=== PATIENT | female | born 1945 | race Caucasian/White ===

== ENCOUNTER 2016-08-19 14:30 | Outpatient (RCR) | payer SELFPAY | END 2016-08-28 | LOC: M CR 14:30 | PROVIDERS: ATTEND Internal Medicine | DX: Z71.89 Other specified counseling (principal); I50.9 Heart failure, unspecified ==

== ENCOUNTER 2016-10-21 15:35 | Outpatient (RCR) | payer SELFPAY | END 2016-10-28 | LOC: M CR 15:35 | PROVIDERS: ATTEND Internal Medicine | DX: Z51.89 Encounter for other specified aftercare (principal); I50.9 Heart failure, unspecified ==

== ENCOUNTER → 2016-10-30 | Outpatient (REF) | payer MEDICARE, SELFPAY ==
[2016-10-30 16:11] LABS: BASO % 0.5 % (0.0-1.0); EOS # 0.1 K/mm3 (0.0-0.50); EOS % 1.9 % (0.0-3.0); LARGE UNSTAINED CELL # 0.1 K/mm3 (0.0-0.4); LARGE UNSTAINED CELL % 1.6 % (0.0-4.0); LYMPH # 2.2 K/mm3 (1.5-4.5); LYMPH % 30.4 % (24.0-44.0); MEAN CORPUSCULAR HGB CONC 34.5 g/dl (32.0-36.5); MEAN CORPUSCULAR VOLUME 92.8 fl (80.0-96.0); MONO # 0.4 K/mm3 (0.0-0.8); MONO % 5.3 % (0.0-5.0); NEUTROPHILS # 4.1 K/mm3 (1.8-7.7); NEUTROPHILS % 60.3 % (36.0-66.0); PLATELET COUNT, AUTOMATED 225 k/mm3 (150-450); RED CELL DISTRIBUTION WIDTH 12.7 % (11.5-14.5); WHITE BLOOD COUNT 6.9 K/mm3 (4.0-10.0)
== END ==
LOC: M LAB REF 15:56
PROVIDERS: ATTEND Internal Medicine Gastroenterology
DX: K50.10 Crohn's disease of large intestine without complications (principal); Z86.010 Personal history of colon polyps

== ENCOUNTER 2016-12-11 14:41 | Outpatient (RCR) | payer SELFPAY | END 2016-12-28 | LOC: M CR 14:41 | PROVIDERS: ATTEND Internal Medicine | DX: Z51.89 Encounter for other specified aftercare (principal); M85.859 Other specified disorders of bone density and structure, unspecified thigh ==

== ENCOUNTER → 2017-01-05 | Outpatient (CLI) | payer MEDICARE, OTHER ==
--- NOTE | 2017-01-05 09:57 | REPMRS ---
Patient History The patient states she had a clinical breast exam in 12/2016. Patient is postmenopausal. Family history of breast cancer in maternal aunt at age 50 or over and breast cancer in maternal grandmother at age 50 or over. Took hormonal contraceptives for 1 year. Took estrogen for 3 years. Taking unspecified hormones for 6 years. Digital Woman Screen Mammo: January 05, 2017 - Exam #: [id number] Bilateral CC and MLO view(s) were taken. Technologist: Ivette Su, Technologist Prior study comparison: November 27, 2015, digital woman screen mammo performed at [facility]. September 24, 2014, digital woman screen mammo performed at [facility]. FINDINGS: The breast tissue is heterogeneously dense. This may lower the sensitivity of mammography. There has been no change in the appearance of the mammogram from the prior studies. There is a moderate amount of residual fibroglandular tissue which is fairly symmetric. There is no interval development of dominant mass, areas of architectural distortion, or clustered microcalcification typical of malignancy. ASSESSMENT: BI-RADS/ACR category 1 mammogram. Negative. Recommendation Routine screening mammogram in 1 year (for women over age 40). This mammogram was interpreted with the aid of an FDA-approved computer-aided dectection system. Electronically Signed By: Mendel Bennett MD 01/05/17 0956
--- NOTE | 2017-01-11 10:04 | DEXA ---
AP SPINE L1 - L4 1.110 -0.7 1.1 LT FEMUR TOTAL 0.845 -1.3 0.4 RT FEMUR TOTAL 0.867 -1.1 0.5 TOTAL BODY TOTAL OTHER DUAL FEMUR FRAX* ASSESSMENT Risk factors: Not performed. 10 year probability of fracture Major osteoporotic fracture % Hip fracture % COMMENTS: Normal bone densitometry of the spine. There is low bone density of the hips. The decreased density of the spine does not represent a significant change. The decreased density of the left hip does represent a significant change. The decreased density of the right hip does represent a significant change. The density of the spine has increased 8.3% since the initial exam on 2004. The spine density has decreased 1.4% since the most recent exam on 08/23/2012. The density of the left hip has decreased 7.8% since the initial exam on 2004. The density of the left hip has decreased 4.9% since the most recent exam on . The density of the right hip has decreased 6.8% since the initial exam on 2004. The density of the right hip has decreased 6.5% since the most recent exam on . FOLLOW-UP: Recommendation for the next bone density exam: 2 years. ALIVIA
== END ==
LOC: M WHC 08:41
PROVIDERS: ATTEND Internal Medicine
DX: Z01.419 Encounter for gynecological examination (general) (routine) without abnormal findings (principal); Z12.31 Encounter for screening mammogram for malignant neoplasm of breast; M81.0 Age-related osteoporosis without current pathological fracture; Z78.0 Asymptomatic menopausal state; Z92.23 Personal history of estrogen therapy; Z80.3 Family history of malignant neoplasm of breast
CPT/HCPCS: 77080; G0101; G0202

== ENCOUNTER 2017-02-10 14:00 | Outpatient (RCR) | payer SELFPAY | END 2017-02-27 | LOC: M CR 14:00 | PROVIDERS: ATTEND Internal Medicine | DX: Z51.89 Encounter for other specified aftercare (principal); I50.9 Heart failure, unspecified ==

== ENCOUNTER 2017-04-28 12:00 | Outpatient (RCR) | payer SELFPAY | END 2017-04-29 | LOC: M CR 12:00 | PROVIDERS: ATTEND Internal Medicine | DX: Z51.89 Encounter for other specified aftercare (principal); I50.9 Heart failure, unspecified ==

== ENCOUNTER 2017-06-28 15:38 | Outpatient (RCR) | payer SELFPAY | END 2017-06-30 | LOC: M CR 15:38 | DX: Z71.82 Exercise counseling (principal) ==

== ENCOUNTER → 2017-10-07 | Outpatient (CLI) | payer MEDICARE, OTHER ==
[2017-10-07 12:29] LABS: BASO % 0.2 % (0.0-1.0); EOS # 0.1 10^3/uL (0.0-0.50); HEMATOCRIT 35.7 % (36.0-47.0); HEMOGLOBIN 12.1 g/dl (12.0-15.5); IMMATURE GRANULOCYTE % 0.3 % (0-3.0); LYMPH # 1.9 10^3/uL (1.5-4.5); LYMPH % 17.9 % (24.0-44.0); MEAN CORPUSCULAR HEMOGLOBIN 31.6 pg (27.0-33.0); MEAN CORPUSCULAR HGB CONC 33.9 g/dl (32.0-36.5); MEAN CORPUSCULAR VOLUME 93.2 fl (80.0-96.0); MONO # 0.6 10^3/uL (0.0-0.8); NEUTROPHILS # 7.8 10^3/uL (1.8-7.7); NEUTROPHILS % 74.6 % (36.0-66.0); PLATELET COUNT, AUTOMATED 180 10^3/uL (150-450); RED BLOOD COUNT 3.83 10^6/uL (4.00-5.40); RED CELL DISTRIBUTION WIDTH 12.8 % (11.5-14.5); WHITE BLOOD COUNT 10.4 10^3/uL (4.0-10.0)
[2017-10-07 12:58] LABS: TOTAL 25(OH) VITAMIN D 39.2 NG/ML (30.0-100.0)
[2017-10-07 13:00] LABS: ALBUMIN 3.8 GM/DL (3.2-5.2); ALBUMIN/GLOBULIN RATIO 1.23 (1.00-1.93); ALKALINE PHOSPHATASE 57 U/L (45-117); ALT/SGPT 20 U/L (12-78); AST/SGOT 18 U/L (7-37); BILIRUBIN,DIRECT 0.1 MG/DL (0.0-0.2); BILIRUBIN,TOTAL 0.6 MG/DL (0.2-1.0); C REACTIVE PROTEIN QUANTITATIV < 0.30 MG/DL (0.00-0.30); TOTAL PROTEIN 6.9 GM/DL (6.4-8.2)
== END ==
LOC: M LAB 11:52
DX: K50.10 Crohn's disease of large intestine without complications (principal); Z86.010 Personal history of colon polyps; K21.9 Gastro-esophageal reflux disease without esophagitis
CPT/HCPCS: 80076

== ENCOUNTER → 2018-01-06 | Outpatient (CLI) | payer MEDICARE, OTHER | LOC: M WHC 08:37 | DX: Z01.419 Encounter for gynecological examination (general) (routine) without abnormal findings (principal); Z12.31 Encounter for screening mammogram for malignant neoplasm of breast (principal); Z78.0 Asymptomatic menopausal state; Z92.0 Personal history of contraception; Z92.23 Personal history of estrogen therapy; Z92.29 Personal history of other drug therapy | CPT/HCPCS: 77067 ==

== ENCOUNTER 2018-01-14 16:12 | Outpatient (RCR) | payer SELFPAY | END 2018-01-28 | LOC: M CR 16:12 | DX: I10 Essential (primary) hypertension (principal) ==

== ENCOUNTER 2018-04-18 15:00 | Outpatient (RCR) | payer SELFPAY | END 2018-04-29 | LOC: M CR 15:00 | DX: I50.9 Heart failure, unspecified (principal) ==

== ENCOUNTER 2018-06-23 08:49 | Day surgery (SDC) | payer MEDICARE, OTHER ==
[~2018-06-23] VITALS: Ht 160 cm; Wt 83.5 kg
[~2018-06-23 08:49] MED LIST: BALANCED SALT IRRIGATION SOLUTION 500ML BAG (FOR OR EYE MACHINE) As Ordered ONE; BIOT1TAB PO; BISOPROLOL-HCTZ PO; CALC1TAB26 PO; FISH7.5C PO; LIDOCAINE 0.75%/EPINEPHRINE 0.025% IN BSS 1ML SYR INTRACAMERAL (OR ONLY) As Ordered ONE; MESA1.2T PO; MIDAZOLAM INJ 2 MG/2 ML VIAL (J2250) As Ordered ONE; MULTCAP PO; OFLOXACIN 0.3 % (OCUFLOX) OPTH SOL 5ML OS ONE; OMEP20CA3 PO; PHENYLEPHRINE 2.5% OPHTH SOL 2ML OS ONE; POVIDONE-IODINE 5% OPHTH PREP SOL 30ML As Ordered ONE; PROPARACAINE 0.5% OPHTH SOL 15ML OS ONE; SIMV20TA2 PO; TROPICAMIDE 1% OPHTH SOLN 2ML OS ONE; fentaNYL 100 MCG/2 ML INJECTION (J3010) As Ordered ONE
[2018-06-23 12:15] VITALS: BP 107/54
--- NOTE | 2018-06-23 16:20 | RO ---
DATE OF PROCEDURE: 06/23/2018 PREOPERATIVE DIAGNOSIS: 1. Visually significant nuclear sclerotic cataract left eye. POSTOPERATIVE DIAGNOSIS: 1. Visually significant nuclear sclerotic cataract left eye. PROCEDURE: 1. Cataract extraction with use of phacoemulsification and placement of intraocular lens, AU00T0, 21.5 D, left eye. SURGEON: Sukumar Winters DO SUPERVISOR MALT HOUSE: None. ANESTHESIA: Local with monitored anesthesia care (MAC). COMPLICATIONS: None. POSTOPERATIVE CONDITION: Stable. INDICATIONS FOR SURGERY: 1. Blurred vision affecting patients activities of daily living. DESCRIPTION OF PROCEDURE: The patient was seen in the preoperative area and properly identified. The correct operative eye was identified and marked. The patient received topical anesthetic, antibiotics, and topical dilating drops. The patient was then transferred to the operating room. The correct side was re-identified, and a time-out was performed. The eye was prepped and draped in a sterile fashion. The eyelids were isolated with Tegaderm tape, and the lids were held open with an adjustable speculum. A 1.0 mm paracentesis incision was made. Intraocular preservative-free Shugarcaine was then injected into the anterior chamber. Viscoelastic was then injected into the anterior chamber through the paracentesis. Using a 2.4 mm sharp-tipped keratome, the anterior chamber was entered via a temporal clear cornea incision. A continuous curvilinear capsulorrhexis was created with Utrata forceps. Hydrodissection was performed with balanced salt solution (BSS) on a blunt cannula until the nucleus was able to rotate freely. The crystalline lens was phacoemulsified and aspirated. Irrigation/aspiration was used to remove the cortical material. Cohesive viscoelastic was placed into the capsular bag to deepen it. The implant was placed into the capsular bag and allowed to unfold. Placement was confirmed by visualizing the anterior capsulorrhexis. Irrigation/aspiration was used to remove the viscoelastic. The clear corneal incision was hydrated with BSS on a blunt cannula. The lens was well positioned. The incisions were then tested for leaks and found to be negative. The eye was then palpated for appropriate pressure and adjusted accordingly with BSS. The eyelid speculum was then carefully removed. A shield was placed over the eye. The patient tolerated the procedure well and was discharged to the recovery unit in a stable condition. ALIVIA
--- NOTE | 2018-07-01 15:30 | RO ---
DATE OF PROCEDURE: 06/23/2018 PREOPERATIVE DIAGNOSIS: 1. Visually significant nuclear sclerotic cataract left eye. POSTOPERATIVE DIAGNOSIS: 1. Visually significant nuclear sclerotic cataract left eye. PROCEDURE: 1. Cataract extraction with use of phacoemulsification and placement of intraocular lens, AU00T0 21.5 D, left eye. SURGEON: Sukumar Winters DO MANAGER INSPECTION: None. ANESTHESIA: Local with monitored anesthesia care (MAC). COMPLICATIONS: None. POSTOPERATIVE CONDITION: Stable. INDICATIONS FOR SURGERY: 1. Blurred vision affecting patients activities of daily living. DESCRIPTION OF PROCEDURE: The patient was seen in the preoperative area and properly identified. The correct operative eye was identified and marked. The patient received topical anesthetic, antibiotics, and topical dilating drops. The patient was then transferred to the operating room. The correct side was re-identified, and a time-out was performed. The eye was prepped and draped in a sterile fashion. The eyelids were isolated with Tegaderm tape, and the lids were held open with an adjustable speculum. A 1.0 mm paracentesis incision was made. Intraocular preservative-free Shugarcaine was then injected into the anterior chamber. Viscoelastic was then injected into the anterior chamber through the paracentesis. Using a 2.4 mm sharp-tipped keratome, the anterior chamber was entered via a temporal clear cornea incision. A continuous curvilinear capsulorrhexis was created with Utrata forceps. Hydrodissection was performed with balanced salt solution (BSS) on a blunt cannula until the nucleus was able to rotate freely. The crystalline lens was phacoemulsified and aspirated. Irrigation/aspiration was used to remove the cortical material. Cohesive viscoelastic was placed into the capsular bag to deepen it. The implant was placed into the capsular bag and allowed to unfold. Placement was confirmed by visualizing the anterior capsulorrhexis. Irrigation/aspiration was used to remove the viscoelastic. The clear corneal incision was hydrated with BSS on a blunt cannula. The lens was well positioned. The incisions were then tested for leaks and found to be negative. The eye was then palpated for appropriate pressure and adjusted accordingly with BSS. The eyelid speculum was then carefully removed. A shield was placed over the eye. The patient tolerated the procedure well and was discharged to the recovery unit in a stable condition. ALIVIA
== END 2018-06-23 12:25 | disposition home or self-care (01) ==
LOC: M SDC 08:49
PROVIDERS: ATTEND Ophthalmology
DX: H25.12 Age-related nuclear cataract, left eye (principal); I10 Essential (primary) hypertension; K50.90 Crohn's disease, unspecified, without complications; Z79.899 Other long term (current) drug therapy; K21.9 Gastro-esophageal reflux disease without esophagitis
CPT/HCPCS: 66984; J2250; J3010; V2632

== ENCOUNTER 2018-06-30 06:13 | Day surgery (SDC) | payer MEDICARE, OTHER ==
[~2018-06-30] VITALS: Ht 157.5 cm; Wt 84.1 kg
[~2018-06-30 06:13] MED LIST changes: +ACETAMINOPHEN 325 MG TAB PO PRN; -BALANCED SALT IRRIGATION SOLUTION 500ML BAG (FOR OR EYE MACHINE) As Ordered ONE; -LIDOCAINE 0.75%/EPINEPHRINE 0.025% IN BSS 1ML SYR INTRACAMERAL (OR ONLY) As Ordered ONE; -MIDAZOLAM INJ 2 MG/2 ML VIAL (J2250) As Ordered ONE; -OFLOXACIN 0.3 % (OCUFLOX) OPTH SOL 5ML OS ONE; -PHENYLEPHRINE 2.5% OPHTH SOL 2ML OS ONE; -POVIDONE-IODINE 5% OPHTH PREP SOL 30ML As Ordered ONE; -PROPARACAINE 0.5% OPHTH SOL 15ML OS ONE; -TROPICAMIDE 1% OPHTH SOLN 2ML OS ONE; -fentaNYL 100 MCG/2 ML INJECTION (J3010) As Ordered ONE
[2018-06-30] MEDS ORDERED: BALANCED SALT IRRIGATION SOLUTION 500ML BAG (FOR OR EYE MACHINE) As Ordered ONE (06:34)
[2018-06-30] MEDS ORDERED: POVIDONE-IODINE 5% OPHTH PREP SOL 30ML As Ordered ONE (06:34)
[2018-06-30] MEDS ORDERED: LIDOCAINE 0.75%/EPINEPHRINE 0.025% IN BSS 1ML SYR INTRACAMERAL (OR ONLY) As Ordered ONE (06:35)
[2018-06-30] MEDS ORDERED: DUOVISC (0.50ML VISCOAT/0.55ML PROVISC) OPHTH KIT As Ordered ONE (06:35)
[2018-06-30] MEDS ORDERED: TROPICAMIDE 1% OPHTH SOLN 2ML OD ONE (07:00)
[2018-06-30] MEDS ORDERED: OFLOXACIN 0.3 % (OCUFLOX) OPTH SOL 5ML OD ONE (07:00)
[2018-06-30] MEDS ORDERED: PHENYLEPHRINE 2.5% OPHTH SOL 2ML OD ONE (07:00)
[2018-06-30] MEDS ORDERED: PROPARACAINE 0.5% OPHTH SOL 15ML OD ONE (07:00)
[2018-06-30] MEDS ORDERED: MIDAZOLAM INJ 2 MG/2 ML VIAL (J2250) As Ordered ONE (07:12)
[2018-06-30] MEDS ORDERED: fentaNYL 100 MCG/2 ML INJECTION (J3010) As Ordered ONE (07:13)
[2018-06-30 08:00] VITALS: BP 123/59
[2018-06-30] MEDS ORDERED: TRIMETHOBENZAMIDE 300 MG CAP PO PRN (08:15)
--- NOTE | 2018-07-20 00:24 | RO ---
DATE OF PROCEDURE: 06/30/2018 PREOPERATIVE DIAGNOSIS: 1. Visually significant nuclear sclerotic cataract right eye. POSTOPERATIVE DIAGNOSIS: 1. Visually significant nuclear sclerotic cataract right eye. PROCEDURE: 1. Cataract extraction with use of phacoemulsification and placement of intraocular lens, AU00T0, 21.5 D, right eye. SURGEON: Sukumar Winters DO SALES AND MARKETING DIRECTOR: None. ANESTHESIA: Local with monitored anesthesia care (MAC). COMPLICATIONS: None. POSTOPERATIVE CONDITION: Stable. INDICATIONS FOR SURGERY: 1. Blurred vision affecting patients activities of daily living. DESCRIPTION OF PROCEDURE: The patient was seen in the preoperative area and properly identified. The correct operative eye was identified and marked. The patient received topical anesthetic, antibiotics, and topical dilating drops. The patient was then transferred to the operating room. The correct side was re-identified, and a time-out was performed. The eye was prepped and draped in a sterile fashion. The eyelids were isolated with Tegaderm tape, and the lids were held open with an adjustable speculum. A 1.0 mm paracentesis incision was made. Intraocular preservative-free Shugarcaine was then injected into the anterior chamber. Viscoelastic was then injected into the anterior chamber through the paracentesis. Using a 2.4 mm sharp-tipped keratome, the anterior chamber was entered via a temporal clear cornea incision. A continuous curvilinear capsulorrhexis was created with Utrata forceps. Hydrodissection was performed with balanced salt solution (BSS) on a blunt cannula until the nucleus was able to rotate freely. The crystalline lens was phacoemulsified and aspirated. Irrigation/aspiration was used to remove the cortical material. Cohesive viscoelastic was placed into the capsular bag to deepen it. The implant was placed into the capsular bag and allowed to unfold. Placement was confirmed by visualizing the anterior capsulorrhexis. Irrigation/aspiration was used to remove the viscoelastic. The clear corneal incision was hydrated with BSS on a blunt cannula. The lens was well positioned. The incisions were then tested for leaks and found to be negative. The eye was then palpated for appropriate pressure and adjusted accordingly with BSS. The eyelid speculum was then carefully removed. A shield was placed over the eye. The patient tolerated the procedure well and was discharged to the recovery unit in a stable condition.
== END 2018-06-30 10:42 | disposition home or self-care (01) ==
LOC: M SDC 06:13
PROVIDERS: ATTEND Ophthalmology
DX: H25.11 Age-related nuclear cataract, right eye (principal); I10 Essential (primary) hypertension; E78.5 Hyperlipidemia, unspecified; K50.90 Crohn's disease, unspecified, without complications; K21.9 Gastro-esophageal reflux disease without esophagitis; M12.9 Arthropathy, unspecified; Z88.0 Allergy status to penicillin; Z88.8 Allergy status to other drugs, medicaments and biological substances; Z79.899 Other long term (current) drug therapy
CPT/HCPCS: 66984; J2250; J3010; V2632

== ENCOUNTER 2018-07-18 15:34 | Outpatient (RCR) | payer SELFPAY ==
[~2018-07-18 15:34] MED LIST changes: -ACETAMINOPHEN 325 MG TAB PO PRN
== END 2018-07-28 ==
LOC: M CR 15:34
PROVIDERS: ATTEND Internal Medicine
DX: Z71.82 Exercise counseling (principal); I50.9 Heart failure, unspecified

== ENCOUNTER 2018-09-26 14:59 | Outpatient (RCR) | payer SELFPAY | END 2018-09-27 | LOC: M CR 14:59 | PROVIDERS: ATTEND Internal Medicine | DX: Z91.89 Other specified personal risk factors, not elsewhere classified (principal) ==

== ENCOUNTER → 2018-10-14 | Outpatient (CLI) | payer MEDICARE, OTHER ==
[2018-10-14 16:12] LABS: BASO % 0.4 % (0.0-1.0); EOS # 0.1 10^3/uL (0.0-0.50); EOS % 1.4 % (0.0-3.0); HEMATOCRIT 37.5 % (36.0-47.0); HEMOGLOBIN 12.4 g/dl (12.0-15.5); LYMPH # 1.9 10^3/uL (1.5-4.5); MEAN CORPUSCULAR HEMOGLOBIN 31.8 pg (27.0-33.0); MEAN CORPUSCULAR HGB CONC 33.1 g/dl (32.0-36.5); MEAN CORPUSCULAR VOLUME 96.2 fl (80.0-96.0); MONO # 0.5 10^3/uL (0.0-0.8); MONO % 6.3 % (0.0-5.0); NEUTROPHILS # 5.1 10^3/uL (1.8-7.7); NEUTROPHILS % 66.6 % (36.0-66.0); PLATELET COUNT, AUTOMATED 192 10^3/uL (150-450); WHITE BLOOD COUNT 7.7 10^3/uL (4.0-10.0)
[2018-10-14 16:45] LABS: ALBUMIN 3.5 GM/DL (3.2-5.2); ALT/SGPT 28 U/L (12-78); BILIRUBIN,DIRECT < 0.1 MG/DL (0.0-0.2); BILIRUBIN,TOTAL 0.3 MG/DL (0.2-1.0); C REACTIVE PROTEIN QUANTITATIV < 0.30 MG/DL (0.00-0.30); TOTAL PROTEIN 6.9 GM/DL (6.4-8.2)
[2018-10-14 16:53] LABS: TOTAL 25(OH) VITAMIN D 43.1 NG/ML (30.0-100.0)
== END ==
LOC: M LAB 15:13
PROVIDERS: ATTEND Internal Medicine Gastroenterology
DX: K50.10 Crohn's disease of large intestine without complications (principal)

== ENCOUNTER → 2019-01-09 | Outpatient (CLI) | payer MEDICARE, OTHER ==
[~2019-01-09] MED LIST changes: -OMEP20CA3 PO; +OMEP20CA4 PO
--- NOTE | 2019-01-09 11:11 | REPMRS ---
Patient History The patient states she had a clinical breast exam in 12/2018. Patient is postmenopausal. Family history of breast cancer at age 50 or over in maternal grandmother, breast cancer at age 50 or over in maternal aunt. Took hormonal contraceptives for 1 year. Took estrogen for 3 years. Took unspecified hormones for 7 years. Digital Woman Screen Mammo: January 09, 2019 - Exam #: [id number] Bilateral CC and MLO view(s) were taken. Technologist: Ivette Su, Technologist Prior study comparison: January 06, 2018, bilateral digital woman screen mammo performed at [facility]. January 05, 2017, digital woman screen mammo performed at [facility]. November 27, 2015, digital woman screen mammo performed at [facility]. FINDINGS: The breast tissue is heterogeneously dense. This may lower the sensitivity of mammography. There is a moderate amount of heterogeneously dense fibroglandular tissue which is fairly symmetric. There is no interval development of dominant mass, architectural distortion, or grouped microcalcification typical of malignancy. There has been no change in the appearance of the mammogram from the prior studies. 3-D tomosynthesis shows no additional findings. Assessment: BI-RADS/ACR category 1 mammogram. Negative Mammogram. Recommendation Routine screening mammogram of both breasts in 1 year (for women over age 40). This patient's Lifetime Breast Cancer RIsk is estimated at 6.8 %. This mammogram was interpreted with the aid of an FDA-approved computer-aided dectection system. Electronically Signed By: Remy Smith MD 01/09/19 [id number]
== END ==
LOC: M WHC 08:01
PROVIDERS: ATTEND Internal Medicine
DX: Z12.31 Encounter for screening mammogram for malignant neoplasm of breast (principal); Z78.0 Asymptomatic menopausal state; Z80.3 Family history of malignant neoplasm of breast; Z92.0 Personal history of contraception; Z92.23 Personal history of estrogen therapy; Z92.29 Personal history of other drug therapy

== ENCOUNTER 2019-01-16 14:43 | Outpatient (RCR) | payer SELFPAY | END 2019-01-28 | LOC: M CR 14:43 | PROVIDERS: ATTEND Internal Medicine | DX: I50.9 Heart failure, unspecified (principal) ==

== ENCOUNTER 2019-04-10 14:39 | Outpatient (RCR) | payer SELFPAY ==
[~2019-04-10 14:39] MED LIST changes: -SIMV20TA2 PO; +SIMV20TA22 PO
== END 2019-04-29 ==
LOC: M CR 14:39
PROVIDERS: ATTEND Internal Medicine
DX: Z51.89 Encounter for other specified aftercare (principal)

== ENCOUNTER 2019-07-10 15:37 | Outpatient (RCR) | payer MEDICARE, OTHER ==
[~2019-07-10 15:37] MED LIST changes: +OMEP1CAP73 PO; -OMEP20CA4 PO
== END 2019-07-29 ==
LOC: M CR 15:37
PROVIDERS: ATTEND Internal Medicine
DX: I51.9 Heart disease, unspecified (principal)

== ENCOUNTER 2019-08-13 12:55 | Inpatient (IN) | payer MEDICARE, OTHER ==
[~2019-08-13] VITALS: Ht 160 cm; Wt 85.8 kg
[2019-08-13] MEDS ORDERED: MELO7.5T35 PO (13:05)
[2019-08-13] MEDS ORDERED: BISO5TAB2 PO (13:05)
[2019-08-13] MEDS ORDERED: [UNRECOGNIZED DRUG - CODE] TOP (13:05)
[2019-08-13] MEDS ORDERED: OMEP-218 PO (13:05)
[2019-08-13 13:41] LABS: BASO % 0.3 % (0.0-1.0); EOS # 0.1 10^3/uL (0.0-0.5); EOS % 0.9 % (0.0-3.0); HEMATOCRIT 33.5 % (36.0-47.0); HEMOGLOBIN 11.1 g/dl (12.0-15.5); LYMPH # 1.9 10^3/uL (1.5-5.0); LYMPH % 22.5 % (24.0-44.0); MEAN CORPUSCULAR HEMOGLOBIN 30.9 pg (27.0-33.0); MEAN CORPUSCULAR HGB CONC 33.1 g/dl (32.0-36.5); MEAN CORPUSCULAR VOLUME 93.3 fl (80.0-96.0); MONO # 0.4 10^3/uL (0.0-0.8); MONO % 4.5 % (0.0-5.0); NEUTROPHILS # 6.1 10^3/uL (1.5-8.5); NEUTROPHILS % 71.5 % (36.0-66.0); PLATELET COUNT, AUTOMATED 241 10^3/uL (150-450); RED BLOOD COUNT 3.59 10^6/uL (4.00-5.40); WHITE BLOOD COUNT 8.6 10^3/uL (4.0-10.0)
[2019-08-13] MEDS ORDERED: NS 1,000 ML IV SCH (13:45)
[2019-08-13] MEDS ORDERED: PANTOPRAZOLE 40MG INJ (PROTONIX) (C9113) IV ONE (13:45)
[2019-08-13 13:55] LABS: INR 0.98; PARTIAL THROMBOPLASTIN TIME 29.3 SECONDS (25.0-38.4); PROTHROMBIN TIME 12.7 SECONDS (11.8-14.0)
[2019-08-13 14:02] LABS: ERYTHROCYTE SEDIMENTATION RATE 54 mm/hr (0-30)
[2019-08-13 14:03] LABS: ALBUMIN 3.5 GM/DL (3.2-5.2); ALT/SGPT 21 U/L (12-78); BILIRUBIN,DIRECT 0.1 MG/DL (0.0-0.2); BILIRUBIN,TOTAL 0.3 MG/DL (0.2-1.0); BLOOD UREA NITROGEN 26 MG/DL (7-18); C REACTIVE PROTEIN QUANTITATIV 0.36 MG/DL (0.00-0.30); CARBON DIOXIDE LEVEL 26 MEQ/L (21-32); CHLORIDE LEVEL 104 MEQ/L (98-107); GLOMERULAR FILTRATION RATE > 60.0 (>39); GLUCOSE, FASTING 141 MG/DL (70-100); LIPASE 228 U/L (73-393); POTASSIUM SERUM 3.8 MEQ/L (3.5-5.1); SODIUM LEVEL 137 MEQ/L (136-145); TOTAL PROTEIN 6.9 GM/DL (6.4-8.2)
[2019-08-13] MEDS ORDERED: CO Q200C10 PO (15:11)
[2019-08-13] MEDS ORDERED: MULTCAP PO (15:11)
[2019-08-13] MEDS ORDERED: FISH1000 PO (15:11)
[2019-08-13] MEDS ORDERED: CALC1TAB26 PO (15:11)
[2019-08-13] MEDS: D5W/0.45% SODIUM CHLORIDE 1,000 ML IV SCH (16:15)
--- NOTE | 2019-08-13 16:56 | HPE ---
DATE OF ADMISSION: 08/13/2019 CHIEF COMPLAINT: Rectal bleeding. HISTORY OF PRESENT ILLNESS: Mrs. Zabala is a 74-year-old woman with history of Crohn's disease, which is controlled with mesalamine. She also was recently diagnosed with left foot tendonitis and has been on meloxicam since the beginning of April for periods of 14 days, then she would discontinue them and has continued taking meloxicam in May, when she refilled her script, as well as in July. She otherwise admitted a normal state of health up until yesterday morning, when she starting noticing blood in her stools, especially when she wiped. Over the course of the day, it increased, so she became alarmed and came to the emergency room (ER) today. On arrival, she is found to be hemodynamically stable and slightly hypertensive. She is not on any anticoagulants. Her hemoglobin normally runs between 12-13.5 g/dL. On arrival to the emergency department (ED), when the checked it, she was 11.1 with a hematocrit of 33.5, with normal coags. A CT of the abdomen and pelvis was done, which showed a left lung mass and other abdominal findings. A full report is not available to me at this time. This was communicated to me by Nacho Zheng. Patient will be admitted to the hospitalist service for further treatment and evaluation of her gastrointestinal (GI) bleed. She has not had any further episodes since arriving in the ED. ALLERGIES: PENICILLIN, which causes a rash, METHYLPREDNISOLONE, which causes a rash. HOME MEDICATIONS: - bisoprolol/hydrochlorothiazide 5/6.25 mg one-half daily - calcium carbonate with vitamin D3 two tablets daily - meloxicam 7.5 mg daily as needed - multivitamin one capsule daily - fish oil 1000 mg by mouth daily - omeprazole 20 mg every 2 days - simvastatin 20 mg at bedtime - triamcinolone lotion applied to affected areas as needed - Coenzyme Q10 20 mg by mouth at bedtime PAST MEDICAL HISTORY: Notable for: 1. Crohn's. 2. Hypertension. 3. Hyperlipidemia. 4. Gastroesophageal reflux disease (GERD). 5. Left foot tendonitis. 6. Diverticulosis. SURGICAL HISTORY: 1. Her most recent colonoscopy was in 2018. She actually has a report with her. She was just found to have some erythema without any evidence of active bleeding and diverticula. [facility] at the [facility] in [place] and actually is due to see then on 08/30/2019. 2. She has also had bilateral cataracts removed. SOCIAL HISTORY: She is a nonsmoker currently, but she had formally smoked for three years in her 20s. She lives at home. She is a . Her son, Washington, is her surrogate medical decision maker. She occasionally drinks alcohol, but does not use any illicit drugs. CODE STATUS: FULL CODE. FAMILY HISTORY: Notable for heart disease, sister who had lung cancer was a smoker, and a brother who has type 1 diabetes. REVIEW OF SYSTEMS: Patient denies having any fever or any other intentional weight loss, any productive cough, shortness of breath. The remainder of systems reviewed on the patient are otherwise negative. PHYSICAL EXAMINATION: Patient's temperature is 96.5, pulse is 74 and regular, respirations are 20, blood pressure is 167/72, oxygen saturation is 100% on room air. GENERAL: Mrs. Zabala is a very pleasant 74-year-old elderly woman who appears her stated age. She appears to be in no distress. Her son, Washington, is at her bedside. Her head is atraumatic, normocephalic. She has eyeglasses in place. Tympanic membranes are visualized bilaterally without any visible cerumen or perforation of her eardrum or erythema. Nares are patent bilaterally without any visible discharge. Oropharynx is clear without exudate, erythema, thrush or Clear ulcers. Her neck is supple. No palpable lymphadenopathy. No thyromegaly. Lung sounds are heard without rales, wheezing or rhonchi. She has symmetric chest wall rise. HEART: S1, S2. No audible murmurs or gallops. ABDOMEN: Soft, nontender, nondistended with active bowel sounds. EXTREMITIES: Without any significant cyanosis, clubbing or edema. She has an ankle wrap to her left foot, which helps with her tendonitis. No visible skin breakdown or erythema or ischemia signs are noted. NEUROLOGIC EXAM: Cranial nerves II-XII appear to be grossly intact. Her speech is fluent. No facial asymmetry. She is moving all four extremities in a purposeful and coordinated manner. Gait is not tested or observed. PERTINENT LABORATORIES: White count is 8.6, hemoglobin 11.1, hematocrit 33.5, platelet count is at 241,000. PT is 12.7. INR is 0.98. PTT is 29.3. Sodium is 137, potassium 3.8, chloride 104, bicarbonate 26, anion gap 7, BUN 26, creatinine 0.8, glucose is 141, calcium is 9. Total bilirubin 0.3, AST is 19, ALT is 21, total protein is 6.9, lipase is 228. CT of the abdomen and pelvis with contrast was obtained. This showed a left lung mass as well as other findings in the abdomen. I am not privy to the report, as it has not been transcribed at this time. IMPRESSION: 1. GI bleed, rule out upper versus lower GI bleed. With her history of meloxicam, she certainly could have a peptic ulcer disease. She will be placed on intravenous (IV) Protonix and clear liquids. Diet: She will be kept nothing by mouth after midnight. We will consult Dr. Adam in the morning for consideration for an esophagogastroduodenoscopy (EGD). Obviously, patient does have diverticula, so she could also have a diverticular bleed. Likely would proceed with EGD first and, if that is normal, can consider a colonoscopy. At this point in time, I am not going to prep the patient. 2. Crohn's disease. Patient can be continued on her mesalamine once the GI cause of her symptoms has been discovered. 3. Left lung mass. I mentioned this to the patient as well as her son, so they are aware they will need to follow up with her primary care provider at the [facility] for further outpatient evaluation. 4. Hyperlipidemia. Patient will be continued on her atorvastatin. 5. Hypertension. Patient is hypertensive at this time and will be continued on her medications. 6. Patient will be a FULL CODE. 7. She will be placed on sequential compression devices (SCDs) for deep venous thrombosis (DVT) prophylaxis.
[2019-08-13 20:44] VITALS: BP 132/64
[2019-08-13] MEDS: PANTOPRAZOLE 40MG INJ (PROTONIX) (C9113) IV SCH (21:44)
[2019-08-13 22:10] LABS: HEMATOCRIT 27.6 % (36.0-47.0); MEAN CORPUSCULAR HEMOGLOBIN 30.3 pg (27.0-33.0); MEAN CORPUSCULAR HGB CONC 32.6 g/dl (32.0-36.5); MEAN CORPUSCULAR VOLUME 92.9 fl (80.0-96.0); PLATELET COUNT, AUTOMATED 178 10^3/uL (150-450); RED BLOOD COUNT 2.97 10^6/uL (4.00-5.40); WHITE BLOOD COUNT 6.8 10^3/uL (4.0-10.0)
[2019-08-14] VITALS (7 sets, daily range): BP systolic 124–159; BP diastolic 53–71
[2019-08-14] MEDS: D5W/0.45% SODIUM CHLORIDE 1,000 ML IV SCH ×2 (05:50→18:31)
[2019-08-14 06:07] LABS: HEMATOCRIT 24.9 % (36.0-47.0); HEMOGLOBIN 8.3 g/dl (12.0-15.5); MEAN CORPUSCULAR HEMOGLOBIN 31.1 pg (27.0-33.0); MEAN CORPUSCULAR HGB CONC 33.3 g/dl (32.0-36.5); MEAN CORPUSCULAR VOLUME 93.3 fl (80.0-96.0); PLATELET COUNT, AUTOMATED 166 10^3/uL (150-450); RED BLOOD COUNT 2.67 10^6/uL (4.00-5.40); WHITE BLOOD COUNT 6.4 10^3/uL (4.0-10.0)
--- NOTE | 2019-08-14 08:14 | REP ---
REASON: Lower abdominal pain. CONTRAST: 100 mL Isovue 370. In the left lung base there is a 3.7 cm sized irregular mass density. There are no pleural or pericardial effusions. The liver, gallbladder, spleen, pancreas, left adrenal gland, and kidneys are within normal limits. In the right adrenal gland there is an oval shaped 1.3 cm sized nodule. The abdominal aorta and paraaortic regions are within normal limits. There is no free fluid or free air in the abdomen. The bowel loops and their mesenteries are within normal limits. CT PELVIS: In the mid anterior pelvis extending slightly into the right upper adnexal space there is a 6.4 x 7.1 x 7.1 cm sized mass which has water density Hounsfield unit readings. The mass abuts the anterior inferior urinary bladder. It is most probably of ovarian origin possibly the right ovary. There is no free fluid in the pelvis. There is sigmoid colon diverticulosis. Bone window technique throughout the exam shows chronic spinal degenerative changes. IMPRESSION: 1. Left lung base mass as described above. 2. Pelvic cystic mass as described above. 3. Colonic diverticulosis as described above. 4. Right adrenal gland nodule, however, no noncontrast enhanced images for comparison. Further work-up with noncontrast enhanced adrenal gland CT is recommended for thorough evaluation of this adrenal gland nodule. 5. Other findings as described above. Electronically Signed by Kain Mata DO 08/14/2019 01:29 P
[2019-08-14] MEDS: PANTOPRAZOLE 40MG INJ (PROTONIX) (C9113) IV SCH ×2 (09:16→20:01)
[2019-08-14] MEDS ORDERED: propofoL 200 MG/20 ML VIAL As Ordered ONE (14:17)
[2019-08-14] MEDS ORDERED: LIDOCAINE 2% INJ 100 MG/5 ML SDV (FOR ANES.) As Ordered ONE (14:17)
--- NOTE | 2019-08-14 14:22 | CR.PDOC ---
General Date of Consultation: Aug 14, 2019 Referring Provider: SANTOS FUENTES MD Attending Physician: JATIN WILKINS MD Consultation Primary physician/ hospitalist: Dr. Fuentes Reason for consult: melena/ rectal bleeding. HPI: 74-year-old woman with HTN, HLD, chronic acid reflux, Crohn's disease ( following with GI in [place], on mesalamine) was admitted to [facility] for complaints of blood in stools. GI was consulted for the same. Patient reported recently diagnosed with left foot tendonitis and has been on meloxicam since the beginning of April 2019 intermittently. She reports having acute onset rectal bleeding, dark to maroon colored stools. Patient few bloody bowel movements sin ce it started but denies any abdominal pain, nausea or vomiting. Patient reports some chronic constipation. Pertinent negative GI symptoms: Patient denies fever, sick contacts, recent travel, nausea, vomiting, diarrhea, abdominal pain, loss of appetite, early satiety or unintentional weight loss. No history of hematemesis, melena or hematochezia. Patient reports regular bowel movements. Review of Systems: GI: as stated above CVS: No chest pain, No palpitations, No leg swelling. RS: No Shortness of breath, No Wheezing, no cough [employer]: No dizziness, No motor weakness, No sensory problems Hematology: No bruising, No gum bleeding, Musculoskeletal: No joint pain, ambulating well. Skin: No rash : No hematuria, No burning sensation of the urine ENT: No ear discharge/ pain, No dysphagia. Eyes: No photophobia. Jaundice Home medications: reviewed. Antithrombotic agents - None Medical h/o: As above. Surgical h/o: None on abdomen. Social h/o: Alcohol Denies , smoking Denies, IVDA/ drugs Denies . Family h/o of GI cancers - None Prior Endoscopies: --- Colonoscopy done in 2018 as per patient no polyps. Prior GI evaluations: Patient followed with GI group in [place] and is scheduled to see her Gastroenterology next month. Exam: Vitals: reviewed General: Alert and oriented x 3, not in distress HEENT: Mild conjunctival pallor, no icterus. Normal oropharynx, NO cervical lymph nodes. Chest: symmetric with bilateral clear air entry, CVS: S1, S2 heard, normal, no murmurs . Abdomen: non-distended, no surgical scars, soft, non-tender, no palpable masses, normal bowel sounds heard. Rectal exam: Patient refused / Deferred at this time in view of scheduled colonoscopy. Extremities: no pedal edema, pulses palpable. [employer]: no focal motor or sensory deficits. Moves all extremities Skin: no rash. Labs: reviewed. Imaging: reviewed. CT abdomen showed left lung base mass lesion of 3.7cm and pelvic cystic mass. Colonic diverticula. Impression: - Acute onset GI bleeding with dark bloody/ maroon stools with prior h/o NSAID use and drop in hemoglobin levels Differential diagnosis including Upper GI ble eding from PUD vs diverticular bleeding ( due to painless bleeding) vs less likely Crohns ulcer bleeding. ( CT scan not showing any active ileocolitis). - Lung mass and Pelvic cystic mass/ lesion needs further evaluation as per primary team. Recommendations: - Patient educated about the test results, possible differential diagnoses and All questions answered. - IV PPI ( prefer pantoprazole 40 mg twice daily) for now until EGD. - Monitor Hemoglobin and hematocrit and transfuse as needed to keep hemoglobin around 7-8gm/dL. - Avoid NSAIDs at this time. - Due to patient clinical presentation, will do urgent EGD today and based on that will plan for colonoscopy tomorrow. - The procedures, indications, risks (bleeding, perforation, infection, hypotension, respiratory depression, allergy, need for endotracheal intubation, surgery, colostomy, cardiac arrest, even ), benefits, limitations (e.g., missing a lesion), and all other alternatives (including no intervention) were explained to the patient who understood and agreed for the procedures. - Please follow the operative notes for post procedure recommendations. - Further evaluation of the lung mass and pelvic cystic lesion as per primary team. Plan of care discussed with patient and primary team. Patient verbalized understanding and agreed with the plan. Vital Signs/I&O Vital Signs Date Time Temp Pulse Resp B/P (MAP) Pulse Ox O2 Delivery O2 Flow Rate FiO2 08/14/19 10:00 98.2 58 19 132/60 (84) 98 Room Air I&O- Last 24 Hours up to 6 AM 08/14/19 06:00 Intake Total 950 ml Output Total 700 ml Balance 250 ml Laboratory Data CBC/BMP Laboratory Tests 08/13/19 22:02 08/14/19 05:51 Allergies Coded Allergies: Penicillins (Verified Allergy, Intermediate, rash, 08/13/19) methylprednisolone (Verified Allergy, Intermediate, rash, 08/13/19) Home Medications Scheduled Bisoprolol/Hydrochlorothiazide (Bisoprolol-Hctz 5-6.25 mg Tab) 1 Each Tablet, 1 TAB PO DAILY, (Reported) Calcium Carbonate/Vitamin D3 (Calcium 600-Vit D3 800 Tablet) 1 Each Tablet, 2 TAB PO DAILY, (Reported) Multivitamin (Multivitamins) 1 Each Capsule, 1 CAP PO DAILY, (Reported) [place]-3 Fatty Acids/Fish Oil (Fish Oil 1,000 mg Capsule) 1 Each Capsule, 1,000 MG PO DAILY, (Reported) Omeprazole (Omeprazole) 20 Mg Capsule.dr, 20 MG PO Q2D, (Reported) Simvastatin (Simvastatin) 20 Mg Tab, 20 MG PO QHS, (Reported) Triamcinolone Acetonide (Triamcinolone Acetonide) 60 Ml Lotion, 1 APPLIC TOP DAILY, (Reported) APPLY TO AFFECTED AREAS Ubidecarenone (Co Q-10) 200 Mg Capsule, 200 MG PO QHS, (Reported) Scheduled PRN Meloxicam (Meloxicam) 7.5 Mg Tablet, 7.5 MG PO DAILY PRN for PAIN, (Reported) JATIN WILKINS MD Aug 14, 2019 14:22
--- NOTE | 2019-08-14 14:44 | ROOR ---
Patient Name: Cherelle Zabala Procedure Date: 08/14/2019 2:14 PM Date of : 1945 Age: 74 Room: [facility] Gender: Female Note Status: Finalized Procedure: Upper GI endoscopy Indications: Acute post hemorrhagic anemia Providers: Tr Adam MD Referring MD: 2. Inpatient 2. Inpatient, PEDRO DELAROSA MD Requesting Provider: Medicines: Monitored Anesthesia Care Complications: No immediate complications. Procedure: Pre-Anesthesia Assessment: - Prior to the procedure, a History and Physical was performed, and patient medications and allergies were reviewed. The patient is competent. The risks and benefits of the procedure and the sedation options and risks were discussed with the patient. All questions were answered and informed consent was obtained. Patient identification and proposed procedure were verified by the physician, the nurse and the anesthesiologist in the procedure room. Respiratory Examination: clear to auscultation. Prophylactic Antibiotics: The patient does not require prophylactic antibiotics. Prior Anticoagulants: The patient has taken no previous anticoagulant or antiplatelet agents. ASA Grade Assessment: II - A patient with mild systemic disease. After reviewing the risks and benefits, the patient was deemed in satisfactory condition to undergo the procedure. The anesthesia plan was to use monitored anesthesia care (MAC). Immediately prior to administration of medications, the patient was re-assessed for adequacy to receive sedatives. The heart rate, respiratory rate, oxygen saturations, blood pressure, adequacy of pulmonary ventilation, and response to care were monitored throughout the procedure. The physical status of the patient was re-assessed after the procedure. The Endoscope was introduced through the mouth, and advanced to the second part of duodenum. The upper GI endoscopy was accomplished without difficulty. The patient tolerated the procedure well. Findings: A small hiatal hernia was present. The Z-line was irregular and was found 40 cm from the incisors. No gross lesions were noted in the entire examined stomach. The ampulla, duodenal bulb and second portion of the duodenum were normal. Impression: - Small hiatal hernia. - Z-line irregular, 40 cm from the incisors. - No gross lesions in the stomach. - Normal ampulla, duodenal bulb and second portion of the duodenum. - No specimens collected. - No bleeding lesions in entire exam. Recommendation: - Patient has a contact number available for emergencies. The signs and symptoms of potential delayed complications were discussed with the patient. Return to normal activities tomorrow. Written discharge instructions were provided to the patient. - Clear liquid diet today, then advance as tolerated to depending on the blood counts and clinical symptoms tomorrow. - Continue present medications. - Discontinue PPIs today. - Perform a colonoscopy tomorrow if patient agrees. - Return to primary care physician. Tr Adam MD Tr Adam MD 08/14/2019 2:44:12 PM Electronically signed by Tr Adam MD Number of Addenda: 0 Note Initiated On: 08/14/2019 2:14 PM Estimated Blood Loss: Estimated blood loss: none.
--- NOTE | 2019-08-14 15:14 | IPNPDOC ---
Subjective Date Seen The patient was seen on 08/14/19. Subjective Chief Complaint/HPI Has not had any further bleeding since admission. Vitals are stable. No complaints of fatigue or lightheadedness. NPO awaiting EGD. Objective Physical Examination General Exam: Positive: Alert, No Acute Distress Eye Exam: Positive: Sclera icteric Neck Exam: Positive: Supple; Negative: JVD Chest Exam: Positive: Clear to auscultation Heart Exam: Positive: Rate Normal Abdomen Exam: Positive: Normal bowel sounds, Soft; Negative: Tenderness Extremity Exam: Negative: Edema Neuro Exam: Positive: Normal Speech Psych Exam: Positive: Mental status NL, Mood NL Assessment /Plan Assessment # Acute GI bleed, r/o upper (2/2 NSAID use) vs. lower (Diverticular) GI bleed - D/w Dr. Adam will do EGD today - hgb has drifted down, but no need for transfusion at this time - change to inpatient per PFS # Crohn's disease - hold asacol due to GI bleed # Left lung mass 3.7 cm # Right Ovarian mass # Right adrenal mass 1.3 cm - patient made aware of CT findings - will need outpatient f/u with her PCP for outpatient workup # Hyperlipidemia - continue atorvastatin # Hypertension - SBP controlled off home meds # DVT prophylaxis - SCDs Plan/VTE VTE Prophylaxis Ordered?: No VTE Exclusion Mechanical Proph: N/A:VTE Prophy Ordered VTE Exclusion Pharmacological: Active Bleeding VS, I&O, 24H, Fishbone Vital Signs/I&O Vital Signs Date Time Temp Pulse Resp B/P (MAP) Pulse Ox O2 Delivery O2 Flow Rate FiO2 08/14/19 14:36 97 59 18 104/81 (89) 96 Room Air I&O- Last 24 Hours up to 6 AM 08/14/19 06:00 Intake Total 950 ml Output Total 700 ml Balance 250 ml Laboratory Data 24H LABS Laboratory Tests 2 08/13/19 22:02: Nucleated Red Blood Cells % (auto) 0.0 08/14/19 05:51: Nucleated Red Blood Cells % (auto) 0.0 CBC/BMP Laboratory Tests 08/13/19 22:02 08/14/19 05:51 SANTOS LAGOS MD Aug 14, 2019 15:14
[2019-08-14 15:29] LABS: HEMATOCRIT 27.9 % (36.0-47.0); HEMOGLOBIN 9.2 g/dl (12.0-15.5); MEAN CORPUSCULAR HEMOGLOBIN 30.9 pg (27.0-33.0); MEAN CORPUSCULAR VOLUME 93.6 fl (80.0-96.0); PLATELET COUNT, AUTOMATED 190 10^3/uL (150-450); RED BLOOD COUNT 2.98 10^6/uL (4.00-5.40); WHITE BLOOD COUNT 7.4 10^3/uL (4.0-10.0)
[2019-08-14] MEDS ORDERED: GOLYTELY SOLN 4000 ML BTL PO ONE (17:15)
[2019-08-14] MEDS ORDERED: BISACODYL 5 MG TAB PO ONE (20:00)
[2019-08-14 22:10] LABS: HEMATOCRIT 24.3 % (36.0-47.0); MEAN CORPUSCULAR HEMOGLOBIN 30.7 pg (27.0-33.0); MEAN CORPUSCULAR HGB CONC 32.9 g/dl (32.0-36.5); MEAN CORPUSCULAR VOLUME 93.1 fl (80.0-96.0); PLATELET COUNT, AUTOMATED 166 10^3/uL (150-450); RED BLOOD COUNT 2.61 10^6/uL (4.00-5.40); WHITE BLOOD COUNT 7.2 10^3/uL (4.0-10.0)
[2019-08-15] VITALS (14 sets, daily range): BP systolic 97–159; BP diastolic 43–81
[2019-08-15] MEDS ORDERED: NS 500 ML IV ONE (01:30)
[2019-08-15 06:17] LABS: HEMATOCRIT 23.7 % (36.0-47.0); HEMOGLOBIN 7.9 g/dl (12.0-15.5); MEAN CORPUSCULAR HEMOGLOBIN 31.1 pg (27.0-33.0); MEAN CORPUSCULAR HGB CONC 33.3 g/dl (32.0-36.5); MEAN CORPUSCULAR VOLUME 93.3 fl (80.0-96.0); PLATELET COUNT, AUTOMATED 182 10^3/uL (150-450); RED BLOOD COUNT 2.54 10^6/uL (4.00-5.40); WHITE BLOOD COUNT 9.4 10^3/uL (4.0-10.0)
[2019-08-15] MEDS: OMEPRAZOLE 20 MG CAP PO SCH (09:31)
[2019-08-15] MEDS ORDERED: propofoL 200 MG/20 ML VIAL As Ordered ONE (09:45)
--- NOTE | 2019-08-15 11:07 | IPNPDOC ---
Text Note Date of Service The patient was seen on 08/15/19. NOTE S: Patient seen and examined at bedside. No acute overnight events reported. Patient still notes some mild dizziness, much improved from admission. O: General: NAD, lying comfortably in bed, elderly HEENT: NC/AT Lungs: CTA B/L Heart: +S1S2, RRR Abd: soft, NT, +BS Ext: trace edema A/P: # Acute GI bleed, r/o upper (2/2 NSAID use) vs. lower (Diverticular) GI bleed - D/w Dr. Adam will do colonoscopy today; EGD done yesterday - hgb has drifted down slowly, but no need for transfusion at this time #acute blood loss anemia in the setting of GI bleed - as above # Crohn's disease - hold asacol due to GI bleed # Left lung mass 3.7 cm # Right Ovarian mass # Right adrenal mass 1.3 cm - patient made aware of CT findings - will need outpatient f/u with her PCP for outpatient workup # Hyperlipidemia - continue atorvastatin # HTN - SBP controlled off home meds # DVT prophylaxis - SCDs Disp: pending colonoscopy, GI follow up VS,Fishbone, I+O VS, Fishbone, I+O Laboratory Tests 08/14/19 15:15 08/14/19 21:58 08/15/19 01:35 08/15/19 05:54 Vital Signs Date Time Temp Pulse Resp B/P (MAP) Pulse Ox O2 Delivery O2 Flow Rate FiO2 08/15/19 10:00 98.1 80 18 138/68 (91) 98 Room Air I&O- Last 24 Hours up to 6 AM 08/15/19 06:00 Intake Total 2180 ml Output Total 1000 ml Balance 1180 ml DOLORES ALBARRAN MD Aug 15, 2019 11:07
[2019-08-15] MEDS: D5W/0.45% SODIUM CHLORIDE 1,000 ML IV SCH ×2 (12:53→15:09)
--- NOTE | 2019-08-15 12:59 | ROOR ---
Patient Name: Cherelle Zabala Procedure Date: 08/15/2019 11:44 AM Date of : 1945 Age: 74 Room: Main OR Gender: Female Note Status: Finalized Procedure: Colonoscopy Indications: Hematochezia Providers: Tr Adam MD Referring MD: Elfego Ram MD Requesting Provider: Medicines: Monitored Anesthesia Care Complications: No immediate complications. Procedure: Pre-Anesthesia Assessment: - Prior to the procedure, a History and Physical was performed, and patient medications and allergies were reviewed. The patient is competent. The risks and benefits of the procedure and the sedation options and risks were discussed with the patient. All questions were answered and informed consent was obtained. Patient identification and proposed procedure were verified by the physician, the nurse and the anesthesiologist in the procedure room. Mental Status Examination: alert and oriented. Airway Examination: normal oropharyngeal airway and neck mobility. Respiratory Examination: clear to auscultation. CV Examination: normal. Prophylactic Antibiotics: The patient does not require prophylactic antibiotics. Prior Anticoagulants: The patient has taken no previous anticoagulant or antiplatelet agents. ASA Grade Assessment: II - A patient with mild systemic disease. After reviewing the risks and benefits, the patient was deemed in satisfactory condition to undergo the procedure. The anesthesia plan was to use monitored anesthesia care (MAC). Immediately prior to administration of medications, the patient was re-assessed for adequacy to receive sedatives. The heart rate, respiratory rate, oxygen saturations, blood pressure, adequacy of pulmonary ventilation, and response to care were monitored throughout the procedure. The physical status of the patient was re-assessed after the procedure. The Colonoscope was introduced through the anus and advanced to the terminal ileum, with identification of the appendiceal orifice and IC valve. The colonoscopy was performed without difficulty. The patient tolerated the procedure well. The quality of the bowel preparation was adequate and fair. The terminal ileum, ileocecal valve, appendiceal orifice, and rectum were photographed. Scope insertion time was 3 minutes. Scope withdrawal time was 11 minutes. The total duration of the procedure was 15 minutes. Findings: The perianal and digital rectal examinations were normal. The terminal ileum appeared normal. Multiple small and large-mouthed diverticula were found from sigmoid to ascending colon. Erythema was seen in association with the diverticular opening. Anahi-diverticular erythema was seen. There was no evidence of diverticular bleeding. There was evidence of recent bleeding from the diverticular opening. For hemostasis, one hemostatic clip was successfully placed. There was no bleeding at the end of the procedure. Non-bleeding external and internal hemorrhoids were found during retroflexion. The hemorrhoids were medium-sized. Impression: - Preparation of the colon was fair. - The examined portion of the ileum was normal. - Severe diverticulosis from sigmoid to ascending colon. Erythema was seen in association with the diverticular opening. Anahi-diverticular erythema was seen. There was no evidence of diverticular bleeding. There was evidence of recent bleeding from the diverticular opening. Clip was placed. - Non-bleeding external and internal hemorrhoids. - No specimens collected. Recommendation: - Patient has a contact number available for emergencies. The signs and symptoms of potential delayed complications were discussed with the patient. Return to normal activities tomorrow. Written discharge instructions were provided to the patient. - High fiber diet. - Continue present medications. - Miralax 1 capful (17 grams) in 8 ounces of water PO daily. - Continue present medications. - Repeat colonoscopy as per protocol for her IBD surveillance at her primary GI. - Return to GI clinic ( [facility] - Return to primary care physician. Tr Adam MD Tr Adam MD 08/15/2019 12:59:04 PM Electronically signed by Tr Adam MD Number of Addenda: 0 Note Initiated On: 08/15/2019 11:44 AM Estimated Blood Loss: Estimated blood loss was minimal.
[2019-08-15] MEDS ORDERED: fentaNYL 100 MCG/2 ML INJECTION (J3010) IV PRN (13:15)
[2019-08-15] MEDS ORDERED: ONDANSETRON 4MG/2ML VIAL (J2405) IV PRN (13:15)
[2019-08-15] MEDS ORDERED: LR 1,000 ML IV SCH (13:15)
[2019-08-15] MEDS: MIRALAX *UNIT DOSE* 17GM PACKET PO SCH (13:26)
[2019-08-16] VITALS (7 sets, daily range): BP systolic 146–171; BP diastolic 54–73
[2019-08-16] MEDS: D5W/0.45% SODIUM CHLORIDE 1,000 ML IV SCH (00:54)
[2019-08-16 06:36] LABS: HEMOGLOBIN 9.5 g/dl (12.0-15.5); MEAN CORPUSCULAR HEMOGLOBIN 30.7 pg (27.0-33.0); MEAN CORPUSCULAR HGB CONC 33.9 g/dl (32.0-36.5); MEAN CORPUSCULAR VOLUME 90.6 fl (80.0-96.0); PLATELET COUNT, AUTOMATED 168 10^3/uL (150-450); RED BLOOD COUNT 3.09 10^6/uL (4.00-5.40); WHITE BLOOD COUNT 6.4 10^3/uL (4.0-10.0)
[2019-08-16 07:05] LABS: BLOOD UREA NITROGEN 7 MG/DL (7-18); CALCIUM LEVEL 7.9 MG/DL (8.8-10.2); CARBON DIOXIDE LEVEL 29 MEQ/L (21-32); CHLORIDE LEVEL 112 MEQ/L (98-107); CREATININE FOR GFR 0.58 MG/DL (0.55-1.30); GLOMERULAR FILTRATION RATE > 60.0 (>39); GLUCOSE, FASTING 110 MG/DL (70-100); POTASSIUM SERUM 3.2 MEQ/L (3.5-5.1); SODIUM LEVEL 143 MEQ/L (136-145)
[2019-08-16] MEDS ORDERED: POTASSIUM CHLORIDE 10 MEQ SR TABLET PO ONE (07:30)
[2019-08-16 07:43] LABS: MAGNESIUM LEVEL 1.9 MG/DL (1.8-2.4)
[2019-08-16] MEDS: OMEPRAZOLE 20 MG CAP PO SCH (09:09)
[2019-08-16] MEDS: MIRALAX *UNIT DOSE* 17GM PACKET PO SCH (09:09)
--- NOTE | 2019-08-16 10:53 | IPNPDOC ---
Text Note Date of Service The patient was seen on 08/16/19. NOTE S: Patient seen and examined at bedside. No acute overnight events reported. Patient has no new medical complaints this morning. O: General: NAD, lying comfortably in bed, elderly HEENT: NC/AT Lungs: CTA B/L Heart: +S1S2, RRR Abd: soft, NT, +BS Ext: trace edema A/P: # Acute GI bleed, r/o upper (2/2 NSAID use) vs. lower (Diverticular) GI bleed - s/p colonoscopy and EGD #acute blood loss anemia in the setting of GI bleed #recent bleeding from diverticula opening - as above - transfused 2 units PRBC yesterday - continue to trend Hgb # Crohn's disease - hold asacol due to GI bleed # Left lung mass 3.7 cm # Right Ovarian mass # Right adrenal mass 1.3 cm - patient made aware of CT findings - will need outpatient f/u with her PCP for outpatient workup # Hyperlipidemia - continue atorvastatin # HTN - SBP controlled off home meds # DVT prophylaxis - SCDs Disp: serial H/H, GI follow up, PT; anticipate discharge in 24-48 hours VS,Fishbone, I+O VS, Fishbone, I+O Laboratory Tests 08/16/19 05:49 Vital Signs Date Time Temp Pulse Resp B/P (MAP) Pulse Ox O2 Delivery O2 Flow Rate FiO2 08/16/19 10:00 98.0 87 15 163/73 (103) 97 Room Air I&O- Last 24 Hours up to 6 AM 08/16/19 06:00 Intake Total 3436 ml Balance 3436 ml DOLORES ALBARRAN MD Aug 16, 2019 10:53
[2019-08-16] MEDS: HYDROCHLOROthiazide 6.25MG PER 1/4TAB PO SCH (21:53)
[2019-08-16] MEDS: bisoproloL fumarate 5 MG TAB PO SCH (21:53)
[2019-08-17 02:00] VITALS: BP 152/60
[2019-08-17 06:00] VITALS: BP 150/85
[2019-08-17 06:31] LABS: HEMATOCRIT 29.3 % (36.0-47.0); HEMOGLOBIN 9.9 g/dl (12.0-15.5); MEAN CORPUSCULAR HEMOGLOBIN 30.9 pg (27.0-33.0); MEAN CORPUSCULAR HGB CONC 33.8 g/dl (32.0-36.5); MEAN CORPUSCULAR VOLUME 91.6 fl (80.0-96.0); PLATELET COUNT, AUTOMATED 200 10^3/uL (150-450)
[2019-08-17 06:58] LABS: BLOOD UREA NITROGEN 8 MG/DL (7-18); CALCIUM LEVEL 8.2 MG/DL (8.8-10.2); CARBON DIOXIDE LEVEL 29 MEQ/L (21-32); CHLORIDE LEVEL 110 MEQ/L (98-107); CREATININE FOR GFR 0.64 MG/DL (0.55-1.30); GLOMERULAR FILTRATION RATE > 60.0 (>39); GLUCOSE, FASTING 99 MG/DL (70-100); POTASSIUM SERUM 3.8 MEQ/L (3.5-5.1); SODIUM LEVEL 141 MEQ/L (136-145)
[2019-08-17] MEDS ORDERED: OMEP-218 PO (08:55)
[2019-08-17] MEDS ORDERED: PEG1POW PO (08:55)
[2019-08-17] MEDS: OMEPRAZOLE 20 MG CAP PO SCH (09:12)
[2019-08-17 09:13] VITALS: BP 150/85
[2019-08-17] MEDS: HYDROCHLOROthiazide 6.25MG PER 1/4TAB PO SCH (09:13)
[2019-08-17] MEDS: MIRALAX *UNIT DOSE* 17GM PACKET PO SCH (09:13)
[2019-08-17] MEDS: bisoproloL fumarate 5 MG TAB PO SCH (09:13)
--- NOTE | 2019-08-17 12:52 | DS.PDOC ---
Discharge Summary General Date of Admission Aug 14, 2019 at 10:47 Date of Discharge 08/17/19 Specialist/Consultants Involve: JATIN WILKINS MD Discharge Summary PROCEDURES PERFORMED DURING STAY: EGD, colonoscopy ADMITTING DIAGNOSES: 1. Crohn's. 2. Hypertension. 3. Hyperlipidemia. 4. Gastroesophageal reflux disease (GERD). 5. Left foot tendonitis. 6. Diverticulosis. DISCHARGE DIAGNOSES: #acute blood loss anemia in the setting of GI bleed #recent bleeding from diverticula opening # Crohn's disease # Left lung mass 3.7 cm # Right Ovarian mass # Right adrenal mass 1.3 cm # Hyperlipidemia # HTN COMPLICATIONS/CHIEF COMPLAINT: Rectal Bleeding. HISTORY OF PRESENT ILLNESS: 74-year-old woman with history of Crohn's disease, which is controlled with mesalamine. She also was recently diagnosed with left foot tendonitis and has been on meloxicam since the beginning of April for periods of 14 days, then she would discontinue them and has continued taking meloxicam in May, when she refilled her script, as well as in July. She otherwise admitted a normal state of health up until yesterday morning, when she starting noticing blood in her stools, especially when she wiped. Over the course of the day, it increased, so she became alarmed and came to the emergency room (ER) today. On arrival, she was found to be hemodynamically stable and slightly hypertensive. She is not on any anticoagulants. Her hemoglobin normally runs between 12-13.5 g/dL. On arrival to the emergency department (ED), when the checked it, she was 11.1 with a hematocrit of 33.5, with normal coags. A CT of the abdomen and pelvis was done, which showed a left lung mass and other abdominal findings. HOSPITAL COURSE: # Acute GI bleed, r/o upper (2/2 NSAID use) vs. lower (Diverticular) GI bleed - s/p colonoscopy and EGD #acute blood loss anemia in the setting of GI bleed #recent bleeding from diverticula opening - as above - transfused 2 units PRBC # Crohn's disease - held asacol due to GI bleed # Left lung mass 3.7 cm # Right Ovarian mass # Right adrenal mass 1.3 cm - patient made aware of CT findings - will need outpatient f/u with her PCP for outpatient workup # Hyperlipidemia - continue atorvastatin # HTN - SBP controlled off home meds DISCHARGE MEDICATIONS: Please see below. ALLERGIES: Please see below. PHYSICAL EXAMINATION ON DISCHARGE: VITAL SIGNS: Please see below. General: NAD, lying comfortably in bed, elderly HEENT: NC/AT Lungs: CTA B/L Heart: +S1S2, RRR Abd: soft, NT, +BS Ext: trace edema LABORATORY DATA: Please see below. ACTIVITY: [As tolerated]. DISPOSITION: Discharge home ITEMS TO FOLLOWUP ON ON OUTPATIENT: 1. Follow up lung, adrenal and ovarian mass with PCP. 2. Follow up PCP in 3-5 days. DISCHARGE CONDITION: [Stable]. TIME SPENT ON DISCHARGE: 40 minutes. Vital Signs/I&Os Vital Signs Date Time Temp Pulse Resp B/P (MAP) Pulse Ox O2 Delivery O2 Flow Rate FiO2 08/17/19 09:13 80 150/85 08/17/19 06:00 98.2 17 97 08/17/19 02:00 Room Air I&O- Last 24 Hours up to 6 AM 08/17/19 06:00 Intake Total 2650 ml Balance 2650 ml Laboratory Data Labs 24H Laboratory Tests 2 08/17/19 06:16: Nucleated Red Blood Cells % (auto) 0.0, Anion Gap 2L, Glomerular Filtration Rate > 60.0, Calcium Level 8.2L CBC/BMP Laboratory Tests 08/17/19 06:16 Discharge Medications Scheduled Bisoprolol/Hydrochlorothiazide (Bisoprolol-Hctz 5-6.25 mg Tab) 1 Each Tablet, 1 TAB PO DAILY, (Reported) Calcium Carbonate/Vitamin D3 (Calcium 600-Vit D3 800 Tablet) 1 Each Tablet, 2 TAB PO DAILY, (Reported) Multivitamin (Multivitamins) 1 Each Capsule, 1 CAP PO DAILY, (Reported) [place]-3 Fatty Acids/Fish Oil (Fish Oil 1,000 mg Capsule) 1 Each Capsule, 1,000 MG PO DAILY, (Reported) Omeprazole (Omeprazole) 20 Mg Capsule.dr, 20 MG PO DAILY Polyethylene Glycol 3350 (Polyethylene Glycol 3350) 17 Gm Powd.pack, 1 PKT PO DAILY Simvastatin (Simvastatin) 20 Mg Tab, 20 MG PO QHS, (Reported) Triamcinolone Acetonide (Triamcinolone Acetonide) 60 Ml Lotion, 1 APPLIC TOP DAILY, (Reported) APPLY TO AFFECTED AREAS Ubidecarenone (Co Q-10) 200 Mg Capsule, 200 MG PO QHS, (Reported) Scheduled PRN Meloxicam (Meloxicam) 7.5 Mg Tablet, 7.5 MG PO DAILY PRN for PAIN, (Reported) Allergies Coded Allergies: Penicillins (Verified Allergy, Intermediate, rash, 08/13/19) methylprednisolone (Verified Allergy, Intermediate, rash, 08/13/19) DOLORES ALBARRAN MD Aug 17, 2019 12:52
== END 2019-08-17 12:30 | disposition home or self-care (01) | DRG 811 ==
LOC: M ED 12:55 → M ED INP 12:56 → ENRESERVTM 19:33 → ENRESERVDT 19:33 → M MSPAV 20:48 → OBSVTOIN 08-14 10:47 → M MSPAV 08-15 11:16
PROVIDERS: ADMIT Internal Medicine; ATTEND Internal Medicine
PROC: 0DJ08ZZ Inspection of Upper Intestinal Tract, Via Natural or Artificial Opening Endoscopic (ICD-10-PCS; principal; 2019-08-14 10:22)
PROC: 0W3P8ZZ Control Bleeding in Gastrointestinal Tract, Via Natural or Artificial Opening Endoscopic (ICD-10-PCS; 2019-08-15)
PROC: 30233N1 Transfusion of Nonautologous Red Blood Cells into Peripheral Vein, Percutaneous Approach (ICD-10-PCS; 2019-08-15)
DX: D62 Acute posthemorrhagic anemia (principal); K57.31 Diverticulosis of large intestine without perforation or abscess with bleeding; K50.90 Crohn's disease, unspecified, without complications; I10 Essential (primary) hypertension; E78.5 Hyperlipidemia, unspecified; K21.9 Gastro-esophageal reflux disease without esophagitis; M65.272 Calcific tendinitis, left ankle and foot; R91.8 Other nonspecific abnormal finding of lung field; K64.4 Residual hemorrhoidal skin tags; E27.8 Other specified disorders of adrenal gland; N83.8 Other noninflammatory disorders of ovary, fallopian tube and broad ligament; K64.8 Other hemorrhoids; K44.9 Diaphragmatic hernia without obstruction or gangrene; Z87.891 Personal history of nicotine dependence; Z79.1 Long term (current) use of non-steroidal anti-inflammatories (NSAID); Z79.899 Other long term (current) drug therapy; Z88.0 Allergy status to penicillin; Z88.8 Allergy status to other drugs, medicaments and biological substances

== ENCOUNTER → 2019-08-29 | Outpatient (CLI) | payer MEDICARE, OTHER ==
[~2019-08-29] MED LIST changes: +BISO5TAB2 PO; +CO Q200C10 PO; +FISH1000 PO; +MELO7.5T35 PO; +OMEP-218 PO; +PEG1POW PO; +[UNRECOGNIZED DRUG - CODE] TOP
--- NOTE | 2019-08-29 14:30 | REP ---
REASON FOR EXAM: Followup left lung base findings seen on prior CT of the abdomen and pelvis on 08/13/2019 which was reviewed. There is no evidence of mediastinal or hilar adenopathy. There are no pleural or pericardial effusions. There is no significant change in the appearance of the imaged upper abdomen compared to the prior abdominal CT. Bone window technique throughout the examination shows the osseous structures to be within normal limits for the patient's age. Evaluation of the lung petersen shows no significant change in the appearance of the left lung base somewhat spiculated mass. There is a 5 mm sized nodule seen in the right lung base which was not imaged on the prior exam due to volume averaging and its small size. It is well demarcated on today's chest CT. There are no other abnormal nodules, masses, or opacities. There is evidence of very mild cylindrical bronchiectasis and there is an incidental calcified granuloma in the right upper lobe posteriorly. IMPRESSION: 1. Left lower lobe mass as described above. 2. 5 mm sized right lower lobe nodule as described above. 3. Other chronic lung field changes as described above. According to the revised Fleischner's Society criteria recommendation is for CT/PET and/or biopsy at this time. Electronically Signed by Kain Mata DO 08/29/2019 03:09 P
== END ==
LOC: M RAD 12:59
PROVIDERS: ATTEND Internal Medicine Pulmonary Disease
DX: R91.8 Other nonspecific abnormal finding of lung field (principal)

== ENCOUNTER → 2019-09-01 | Outpatient (REF) | payer MEDICARE, OTHER ==
[2019-09-01 13:57] LABS: PLATELET COUNT, AUTOMATED 243 10^3/uL (150-450)
[2019-09-01 14:10] LABS: INR 1.14; PARTIAL THROMBOPLASTIN TIME 34.3 SECONDS (25.0-38.4); PROTHROMBIN TIME 14.3 SECONDS (11.8-14.0)
== END ==
LOC: M LAB REF 13:16
PROVIDERS: ATTEND Internal Medicine Pulmonary Disease
DX: R91.8 Other nonspecific abnormal finding of lung field (principal); Z79.899 Other long term (current) drug therapy

== ENCOUNTER → 2019-09-13 | Outpatient (CLI) | payer MEDICARE, OTHER ==
[~2019-09-13] MED LIST changes: +ACET-897 PO; +LIDOCAINE 1% MDV 20ML VIAL As Ordered ONE; +MESA800T8 PO; +MIRA3350 PO
[2019-09-13 11:17] VITALS: BP 166/95
--- NOTE | 2019-09-13 11:32 | REP ---
CHEST SINGLE VIEW: Single view of the chest performed status post lung biopsy. There is no pneumothorax. There is vague evidence of left lower lobe mass. There is mild bibasilar atelectatic change. IMPRESSION: No pneumothorax status post lung biopsy. Electronically Signed by Mendel Bennett MD 09/13/2019 12:05 P
--- NOTE | 2019-09-13 19:34 | REP ---
CT-GUIDED LEFT LOWER LOBE LUNG BIOPSY The procedure was performed under the direct supervision of Dr. Bennett. The patient has a history of a 3.7 cm irregular mass in the left lung base seen on a previous CT scan dated 08/29/2019. The risks and benefits of the procedure were explained to the patient and informed consent was obtained. The left lower lobe lung mass was localized using CT guidance. The skin was prepped and draped in a sterile fashion. 1% lidocaine was used as a local anesthetic. Using CT guidance 19/20 gauge coaxial needle biopsy system was inserted and advanced into the mass. Five core biopsy samples were obtained and sent to lab. The patient tolerated the procedure well and there were no immediate complications. After the appropriate amount of monitored convalescence the patient was discharged from the department. Electronically Signed by YVAN Robles 09/13/2019 03:51 P Electronically Signed by Mendel Bennett MD 09/13/2019 07:25 P
== END ==
LOC: M IRPRO 07:56
PROVIDERS: ATTEND Internal Medicine Pulmonary Disease
DX: J18.9 Pneumonia, unspecified organism (principal); J98.4 Other disorders of lung

== ENCOUNTER → 2019-09-17 | Outpatient (CLI) | payer MEDICARE, OTHER ==
[~2019-09-17] MED LIST changes: -LIDOCAINE 1% MDV 20ML VIAL As Ordered ONE
[2019-09-17 09:07] LABS: HEMATOCRIT 35.6 % (36.0-47.0); HEMOGLOBIN 11.6 g/dl (12.0-15.5); MEAN CORPUSCULAR HEMOGLOBIN 29.8 pg (27.0-33.0); MEAN CORPUSCULAR HGB CONC 32.6 g/dl (32.0-36.5); MEAN CORPUSCULAR VOLUME 91.5 fl (80.0-96.0); PLATELET COUNT, AUTOMATED 200 10^3/uL (150-450); RED BLOOD COUNT 3.89 10^6/uL (4.00-5.40); WHITE BLOOD COUNT 6.1 10^3/uL (4.0-10.0)
[2019-09-17 09:38] LABS: ALBUMIN 3.3 GM/DL (3.2-5.2); ALT/SGPT 29 U/L (12-78); BILIRUBIN,DIRECT 0.1 MG/DL (0.0-0.2); BILIRUBIN,TOTAL 0.4 MG/DL (0.2-1.0); BLOOD UREA NITROGEN 18 MG/DL (7-18); CALCIUM LEVEL 8.8 MG/DL (8.8-10.2); CARBON DIOXIDE LEVEL 30 MEQ/L (21-32); CHLORIDE LEVEL 105 MEQ/L (98-107); CREATININE FOR GFR 0.68 MG/DL (0.55-1.30); FERRITIN 41 NG/ML (8-252); GLOMERULAR FILTRATION RATE > 60.0 (>39); GLUCOSE, FASTING 106 MG/DL (70-100); IRON (FE) 61 UG/DL (50-170); PERCENT SATURATION 19.2 % (13.2-45.0); POTASSIUM SERUM 4.2 MEQ/L (3.5-5.1); SODIUM LEVEL 140 MEQ/L (136-145); TOTAL IRON BINDING CAPACITY 317 UG/DL (250-450); TOTAL PROTEIN 6.5 GM/DL (6.4-8.2)
[2019-09-18 10:24] LABS: TOTAL 25(OH) VITAMIN D 41.2 NG/ML (30.0-100.0)
[2019-09-18 10:25] LABS: VITAMIN B12 LEVEL 346 PG/ML (247-911)
== END ==
LOC: M LAB 08:19
PROVIDERS: ATTEND Physician Assistant Surgical
DX: K57.30 Diverticulosis of large intestine without perforation or abscess without bleeding (principal); D50.9 Iron deficiency anemia, unspecified

== ENCOUNTER → 2019-12-07 | Outpatient (CLI) | payer MEDICARE, OTHER ==
[~2019-12-07] MED LIST changes: +BIOT10TA2 PO; +IBUP-1022 PO; +OXYC1TAB23 PO
--- NOTE | 2019-12-07 10:44 | REP ---
REASON: Followup Suspected ovarian cyst seen on prior CT obtained 4 months ago. There are no prior ultrasound examinations for comparison. Transvesical and transvaginal imaging was obtained. The uterus measures 5.8 x 2.8 x 3.7 cm. The parenchymal echo pattern is within normal limits. The endometrial echo complex is within normal limits measuring 3 mm in its greatest transverse dimension. The left ovary was not visualized transvesically or transvaginally. In the right adnexa, there is a 5.9 x 5.9 x 7.4 cm. Sized anechoic structure which exhibits posterior wall enhancement and increased through transmission and is without septations, however, early papillary projections along the anterior superior wall cannot be ruled out as a few echogenic regions are seen immediately adjacent to the endovaginal probe. No normal ovarian tissue is clearly defined. IMPRESSION: Right adnexal cystic mass as described above. Since a right adnexal cystic structure was seen on the prior CT examination of 08/13/2019, the size of which appears unchanged, the stability of this is of growing concern. Neoplastic change cannot be ruled out. Consider pre- and post gadolinium enhanced pelvic MRI of clinically relevant.
== END ==
LOC: M WHC 07:58
PROVIDERS: ATTEND Specialist
DX: N83.201 Unspecified ovarian cyst, right side (principal)

== ENCOUNTER → 2019-12-10 | Outpatient (CLI) | payer MEDICARE, OTHER | LOC: M LABSMTC 10:34 | PROVIDERS: ATTEND Anesthesiology | DX: Z11.59 Encounter for screening for other viral diseases (principal) | CPT/HCPCS: C9803; U0003 ==

== ENCOUNTER 2019-12-15 09:07 | Day surgery (SDC) | payer MEDICARE, OTHER ==
[~2019-12-15] VITALS: Ht 160 cm; Wt 85.5 kg
[~2019-12-15 09:07] MED LIST changes: -IBUP-1022 PO; +LIDOCAINE 1% MDV 20ML VIAL SQ PRN; +LR 1,000 ML IV ONE; -OXYC1TAB23 PO
[2019-12-15 09:45] LABS: HEMATOCRIT 39.7 % (36.0-47.0); HEMOGLOBIN 12.7 g/dl (12.0-15.5); MEAN CORPUSCULAR HEMOGLOBIN 29.3 pg (27.0-33.0); MEAN CORPUSCULAR VOLUME 91.5 fl (80.0-96.0); PLATELET COUNT, AUTOMATED 163 10^3/uL (150-450); RED BLOOD COUNT 4.34 10^6/uL (4.00-5.40); WHITE BLOOD COUNT 5.5 10^3/uL (4.0-10.0)
[2019-12-15] MEDS ORDERED: SUGAMMADEX SODIUM 500 MG/5 ML VIAL (BRIDION) As Ordered ONE ×2 (10:12→11:45)
[2019-12-15] MEDS ORDERED: propofoL 200 MG/20 ML VIAL As Ordered ONE (10:12)
[2019-12-15] MEDS ORDERED: ONDANSETRON 4MG/2ML VIAL As Ordered ONE (10:12)
[2019-12-15] MEDS ORDERED: dexameTHASONE 4 MG/ML 1ML VIAL (J1100 PER 1MG) As Ordered ONE (10:12)
[2019-12-15] MEDS ORDERED: ROCURONIUM BROMIDE 50 MG/5 ML VIAL As Ordered ONE (10:12)
[2019-12-15] MEDS ORDERED: LIDOCAINE 2% 100MG/5ML SDV (FOR ANES.) As Ordered ONE (10:12)
[2019-12-15] MEDS ORDERED: fentaNYL 100 MCG/2 ML INJECTION (J3010) As Ordered ONE (10:12)
[2019-12-15] MEDS ORDERED: ACETAMINOPHEN 1000MG 100ML IV BTL (OFIRMEV) (J0131 PER 10MG) As Ordered ONE (10:12)
[2019-12-15] MEDS ORDERED: KETOROLAC 60MG 2ML VIAL As Ordered ONE (10:12)
[2019-12-15] MEDS ORDERED: MIDAZOLAM INJ 2MG/2ML VIAL (J2250 PER 1MG) As Ordered ONE (10:13)
[2019-12-15] MEDS ORDERED: BUPIVACAINE HCL 0.25% 10ML VIAL As Ordered ONE (11:04)
[2019-12-15] MEDS ORDERED: oxyCODONE 5MG TAB PO PRN (12:30)
[2019-12-15] MEDS ORDERED: LR 1,000 ML IV SCH ×2 (12:30)
[2019-12-15] MEDS ORDERED: HYDROMORPHONE HCL 0.5 MG/ 0.5 ML SYRINGE (J1170 PER 1) IV PRN (12:30)
[2019-12-15] MEDS ORDERED: ONDANSETRON 4MG/2ML VIAL IV PRN (12:30)
[2019-12-15] MEDS ORDERED: METOCLOPRAMIDE INJ 10MG/2ML VIAL (J2765 PER 1) IV PRN (12:30)
[2019-12-15] MEDS ORDERED: PERCOCET 5MG/325MG TAB PO PRN (12:30)
[2019-12-15] MEDS: fentaNYL 100 MCG/2 ML INJECTION (J3010) IV PRN ×4 (12:35→12:59)
[2019-12-15 13:15] VITALS: BP 171/86
[2019-12-15 13:45] VITALS: BP 169/82
[2019-12-15 14:45] VITALS: BP 167/76
[2019-12-15] MEDS ORDERED: OXYC1TAB23 PO (15:06)
[2019-12-15] MEDS ORDERED: IBUP-1022 PO (15:07)
[2019-12-15] MEDS ORDERED: IBUPROFEN 600MG TAB PO PRN (15:15)
[2019-12-15 15:45] VITALS: BP 159/82
[2019-12-15 16:45] VITALS: BP 148/80
[2019-12-15 20:00] VITALS: BP 163/73
[2019-12-15] MEDS: HYDROCHLOROthiazide 6.25MG PER 1/4TAB PO SCH (20:30)
[2019-12-15] MEDS: bisoproloL fumarate 5 MG TAB PO SCH (20:31)
[2019-12-16] VITALS: BP 169/75
[2019-12-16 04:15] VITALS: BP 158/68
[2019-12-16 08:00] VITALS: BP 148/82
[2019-12-16] MEDS ORDERED: OMEPRAZOLE 20 MG CAP PO SCH (09:00)
[2019-12-16 09:12] VITALS: BP 148/82
[2019-12-16] MEDS: bisoproloL fumarate 5 MG TAB PO SCH (09:12)
[2019-12-16] MEDS: HYDROCHLOROthiazide 6.25MG PER 1/4TAB PO SCH (09:13)
== END 2019-12-16 11:05 | disposition home or self-care (01) ==
LOC: M SDC 09:07 → M PED 13:15 → M SDC 12-16 11:05
PROVIDERS: ATTEND Specialist
DX: N83.201 Unspecified ovarian cyst, right side (principal); Z88.0 Allergy status to penicillin; Z88.8 Allergy status to other drugs, medicaments and biological substances
CPT/HCPCS: 36415; 58661; 85027; 88307; J0131; J1100; J1885; J2250; J2405; J3010

== ENCOUNTER → 2020-02-08 | Outpatient (CLI) | payer MEDICARE, OTHER ==
[~2020-02-08] MED LIST changes: +IBUP-1022 PO; -LIDOCAINE 1% MDV 20ML VIAL SQ PRN; -LR 1,000 ML IV ONE; +OXYC1TAB23 PO
--- NOTE | 2020-02-08 09:37 | REPMRS ---
Patient History The patient states she has not had a clinical breast exam in over a year. Family history of breast cancer at age 50 or over in maternal grandmother, breast cancer at age 50 or over in maternal aunt. Took hormonal contraceptives for 1 year. Took estrogen for 3 years. Took unspecified hormones for 7 years. 3D TOMOSYNTHESIS WAS PERFORMED. The [facility] lifetime risk for breast cancer is 5.6%. VOLPARA MARGE C. Digital Woman Screen Mammo: February 08, 2020 - Exam #: [id number] Bilateral CC and MLO view(s) were taken. Technologist: Oumou Collier, Technologist Prior study comparison: January 09, 2019, bilateral digital woman screen mammo performed at [facility]. January 06, 2018, bilateral digital woman screen mammo performed at [facility]. FINDINGS: The breast tissue is heterogeneously dense. This may lower the sensitivity of mammography. There has been no change in the appearance of the mammogram from the prior studies. There is a moderate amount of residual fibroglandular tissue which is fairly symmetric. There is no interval development of dominant mass, areas of architectural distortion, or clustered microcalcification typical of malignancy. Assessment: BI-RADS/ACR category 1 mammogram. Negative Mammogram. Recommendation Routine screening mammogram in 1 year (for women over age 40). This mammogram was interpreted with the aid of an FDA-approved computer-aided dectection system. Electronically Signed By: Mendel Bennett MD 02/08/20 0936
--- NOTE | 2020-02-22 15:35 | DEXA ---
AP SPINE L1 - L4 1.123 -0.6 1.2 LT FEMUR TOTAL 0.822 -1.5 0.4 LT NECK 0.781 -1.9 0.2 RT FEMUR TOTAL 0.832 -1.4 0.4 RT NECK 0.815 -1.6 0.4 TOTAL BODY TOTAL OTHER COMMENTS: Normal bone densitometry of the spine. There is low bone density of the hips. The density of the spine has increased 9.6% since the initial exam on 06/02/2004. The increased 1.2% since most recent exam on 01/05/2017. The density of the left hip has decreased 10.3% since the initial exam on 06/02/2004. The density of the left hip has decreased 2.7% since the most recent exam on 01/05/2017. The density of the right hip has decreased 10.5% since the initial exam on 06/02/2004. The density of the right hip has decreased 4.0% since the most recent exam on 01/05/2017. FOLLOW-UP: Recommendation for the next bone density exam: 2 years. ALIVIA
== END ==
LOC: M WHC 07:49
PROVIDERS: ATTEND Internal Medicine
DX: Z12.31 Encounter for screening mammogram for malignant neoplasm of breast (principal); M81.0 Age-related osteoporosis without current pathological fracture; M85.851 Other specified disorders of bone density and structure, right thigh; M85.852 Other specified disorders of bone density and structure, left thigh

== ENCOUNTER → 2020-03-13 | Outpatient (CLI) | payer MEDICARE, OTHER ==
--- NOTE | 2020-03-18 10:07 | REP ---
NONCONTRAST CHEST CT CLINICAL: Follow-up abnormal lung findings. COMPARISON: 08/29/2019. TECHNIQUE: Axial noncontrast images from the thoracic inlet to the upper abdomen with coronal and sagittal reformations. FINDINGS: The lung petersen demonstrate stable chronic scattered interstitial changes and mild age-related bronchiectasis. A somewhat ovoid partially spiculated lesions along the medial left lung base is again noted and appears slightly more pronounced and more ovoid in appearance measuring approximately 3.1 cm in maximal diameter. Finding is nonspecific and has the appearance of chronic rounded atelectasis. The 5-mm nodule in the right lung base has essentially resolved. No new areas of consolidation or suspicious mass/nodule noted. No effusion. No pneumothorax. Tracheobronchial tree is patent. No obvious adenopathy. Atherosclerotic changes to the aorta and vasculature noted without aneurysm or dissection. No pericardial effusion. Surrounding musculoskeletal structures are intact. IMPRESSION: * Left lower lobe density as described above. Differential diagnosis includes, but is not limited to chronic rounded atelectasis and less likely malignancy. Correlation and follow-up may be warranted. * Previously noted 5-mm nodule in the right base has resolved. * Chronic interstitial changes and scattered scarring and bronchiectasis remain stable. MTDD
== END ==
LOC: M RAD 12:59
PROVIDERS: ATTEND Internal Medicine Pulmonary Disease
DX: R91.8 Other nonspecific abnormal finding of lung field (principal)

== ENCOUNTER → 2021-01-04 | Outpatient (CLI) | payer MEDICARE, OTHER ==
[~2021-01-04] MED LIST changes: -PEG1POW PO; +POLY17PO18 PO
[2021-01-04 09:47] LABS: ALBUMIN 3.4 GM/DL (3.2-5.2); ALT/SGPT 28 U/L (12-78); BILIRUBIN,TOTAL 0.4 MG/DL (0.2-1.0); BLOOD UREA NITROGEN 19 MG/DL (7-18); CARBON DIOXIDE LEVEL 29 MEQ/L (21-32); CHLORIDE LEVEL 108 MEQ/L (98-107); CHOLESTEROL LEVEL 158 MG/DL (<200); CHOLESTEROL RISK RATIO 2.677 (<5); CREATININE FOR GFR 0.64 MG/DL (0.55-1.30); GLOMERULAR FILTRATION RATE > 60.0 (>39); GLUCOSE, FASTING 99 MG/DL (70-100); HDL CHOLESTEROL 59 MG/DL (>40); LDL CHOLESTEROL 84 MG/DL (<100); NON-HDL-C 99 MG/DL; POTASSIUM SERUM 4.2 MEQ/L (3.5-5.1); SODIUM LEVEL 143 MEQ/L (136-145); TOTAL PROTEIN 6.4 GM/DL (6.4-8.2); TRIGLYCERIDES LEVEL 76 MG/DL (<150)
== END ==
LOC: M LAB 08:09
PROVIDERS: ATTEND Internal Medicine
DX: E78.5 Hyperlipidemia, unspecified (principal); I10 Essential (primary) hypertension

== ENCOUNTER → 2021-01-27 | Outpatient (CLI) | payer MEDICARE, OTHER | LOC: M LAB 08:29 | PROVIDERS: ATTEND Physician Assistant Surgical | DX: K50.10 Crohn's disease of large intestine without complications (principal) ==

== ENCOUNTER → 2021-03-17 | Outpatient (CLI) | payer MEDICARE, OTHER ==
--- NOTE | 2021-03-17 13:50 | REP ---
INDICATION: ABN FINDING OF LUNG COMPARISON: Multiple the latest 03/13/2020 also without contrast TECHNIQUE: Standard helical technique without contrast FINDINGS: There is no significant change in appearance of the mediastinum or pulmonary larisa. There is no significant change in appearance of the imaged upper abdomen or imaged osseous structures. Evaluation of the lung petersen shows a new 1.7 by 1.2 by 1.3 cm sized irregular pleural base nodule in the left upper lobe abutting the major fissure. The irregular density seen previously in the medial basal segment of the left lower lobe has significantly improved and today in instead there is only and irregular curvilinear density which measures 1.1 by 0.6 by 2 cm. There is mild cylindrical bronchiectasis status quo. Note is again made of an incidental calcified granuloma in the right upper lobe. IMPRESSION: 1. New left upper lobe nodule as described above. According to the revised Fleischner society criteria PET-CT is in order. 2. Significantly improved density in the left lower lobe as described above. 3. Other findings and chronic lung field changes as described above. <Electronically signed by Kain Mata > 03/17/21 [id number]
== END ==
LOC: M RAD 10:29
PROVIDERS: ATTEND Internal Medicine Pulmonary Disease
DX: R91.8 Other nonspecific abnormal finding of lung field (principal)

== ENCOUNTER → 2021-04-11 | Outpatient (CLI) | payer MEDICARE, OTHER ==
[2021-04-11 15:58] LABS: PLATELET COUNT, AUTOMATED 183 10^3/uL (150-450)
[2021-04-11 16:11] LABS: INR 0.96; PROTHROMBIN TIME 13.2 SECONDS (12.7-14.5)
[2021-04-11 16:12] LABS: PARTIAL THROMBOPLASTIN TIME 33.4 SECONDS (25.9-37.0)
== END ==
LOC: M PLALAB 12:05
PROVIDERS: ATTEND Internal Medicine Pulmonary Disease
DX: Z01.812 Encounter for preprocedural laboratory examination (principal); R91.8 Other nonspecific abnormal finding of lung field

== ENCOUNTER → 2021-04-15 | Outpatient (CLI) | payer MEDICARE, OTHER ==
[2021-04-15 13:53] LABS: HEMATOCRIT 37.1 % (36.0-47.0); HEMOGLOBIN 12.3 g/dl (12.0-15.5); MEAN CORPUSCULAR HEMOGLOBIN 30.7 pg (27.0-33.0); MEAN CORPUSCULAR HGB CONC 33.2 g/dl (32.0-36.5); MEAN CORPUSCULAR VOLUME 92.5 fl (80.0-96.0); PLATELET COUNT, AUTOMATED 192 10^3/uL (150-450); RED BLOOD COUNT 4.01 10^6/uL (4.00-5.40); WHITE BLOOD COUNT 7.1 10^3/uL (4.0-10.0)
[2021-04-15 14:29] LABS: ALBUMIN 3.5 GM/DL (3.2-5.2); BLOOD UREA NITROGEN 22 MG/DL (7-18); CARBON DIOXIDE LEVEL 31 MEQ/L (21-32); CHLORIDE LEVEL 104 MEQ/L (98-107); CREATININE FOR GFR 0.77 MG/DL (0.55-1.30); FERRITIN 50 NG/ML (8-252); GLOMERULAR FILTRATION RATE > 60.0 (>39); GLUCOSE, FASTING 99 MG/DL (70-100); IRON (FE) 71 UG/DL (50-170); PERCENT SATURATION 21.6 % (13.2-45.0); PHOSPHORUS LEVEL 3.7 MG/DL (2.5-4.9); POTASSIUM SERUM 4.5 MEQ/L (3.5-5.1); SODIUM LEVEL 138 MEQ/L (136-145); TOTAL IRON BINDING CAPACITY 329 UG/DL (250-450)
[2021-04-15 14:33] LABS: ERYTHROCYTE SEDIMENTATION RATE 32 mm/hr (0-30)
[2021-04-15 14:34] LABS: TOTAL 25(OH) VITAMIN D 60.6 NG/ML (30.0-100.0)
[2021-04-15 14:35] LABS: VITAMIN B12 LEVEL 498 PG/ML (247-911)
== END ==
LOC: M PLALAB 11:22
PROVIDERS: ATTEND Physician Assistant Surgical
DX: K21.9 Gastro-esophageal reflux disease without esophagitis (principal); K50.10 Crohn's disease of large intestine without complications

== ENCOUNTER 2021-04-16 08:59 | Emergency (ER) | payer MEDICARE, OTHER ==
[~2021-04-16] VITALS: Ht 160 cm; Wt 82.8 kg
--- OUTSIDE RECORDS SUMMARY | 2021-04-16 09:07 | CCD | Continuity of Care Document ---
Author Author Cherelle BOOGIE D.O. [place] [address] Phone [phone] Care Team Providers Care Oracle Hrms Developer Name Role Phone Chris Renteria M.D. AUTM [phone] Problems Active Problems Provider Date Abnormal findings on diagnostic imaging of lung Miguel Ángel Boogie D.O. Onset: 08/24/2019 Bronchiolectasis Miguel Ángel Boogie D.O. Onset: 08/24/2019 Social History Type Date Description Comments Sex Unknown Tobacco Use Start: 05/31/59 End: 05/31/65 Patient is a forme r smoker 1 PACK PER WEEK Smoking Status Reviewed: 03/24/21 Patient is a former smoker 1 PACK PER WEEK Allergies and adverse reactions Active Allergies Criticality Reaction | Severity Comments Date Penicillin V Unable to assess criticality Hives 08/24/2019 Methylprednisolone Unable to assess criticality Hives 08/24/2019 Medications Active Medications SIG Qnty Indications Ordering Provide r Date Omeprazole 10mg Capsules DR 1 cap by mouth every day 30caps Unknown Bisoprolol Fumarate/Hydrochlorothiazide 5-6.25mg Tablets 1 tab by mouth every day Unknown Simvastatin 20mg Tablets 1 tab by mouth every day Unknown Mesalamine 1.2gm Tablets DR 2 tabs by mouth every day 120tabs Unknown Peg 3350 Packet 1 packet by mouth every day for 20 days started 3-20-20 Unknown Metronidazole 0.75% Lotion as needed Unknown Triamcinolone Acetonide 0.025% Cre am as needed 45gm Unknown Multivitamin Tablets 1 tab by mouth every day Unknown Coq-10 100mg Capsules ER 1 tab by mouth every day Unknown Biotin 01002wey Tablets 1 tab by mouth every day Unknown Calcium [id number]-Imak Tablets 2 tabs by mouth every morning and 1 tab by mouth at night Unknown Vitamin D 50mcg (2000 Ut) Capsules 1 cap by mouth every day Unknown Immunizations Description No Information Available Vital Signs Date Vital Result Comment 03/24/2021 10:01am BP Systolic 130 mmHg BP Diastolic 80 mmHg Heart Rate 57 /min O2 % BldC Oximetry 97 % Height 63 inches 5'3" Weight 184.00 lb BMI (Body Mass Index) 32.6 kg/m2 [place] Body Weight 115 lb Weight 83.462 kg BSA (Body Surface Area) 1.87 m2 03/20/2020 3:19pm BP Systolic 122 mmHg BP Diastolic 72 mmHg Heart Rate 56 /min O2 % BldC Oximetry 99 % Body Temperature 96.5 F Height 63 inches 5'3" Weight 189.00 lb BMI (Body Mass Index) 33.5 kg/m2 [place] Body Weight 115 lb Weight 85.730 kg BSA (Body Surface Area) 1.89 m2 Results Description No Information Available Procedures Description No Information Available Medical Devices Description No Information Available Encounters Description No Information Available Assessments Date Code Description Provider 03/24/2021 R91.8 Abnormal findings on diagnostic imaging of lung Miguel Ángel Boogie D.O. 03/24/2021 J47.9 Bronchiectasis, uncomplicated Ro jerry Boogie D.O. Plan of Treatment 03/24/2021 - Miguel Ángel Boogie D.O.* R91.8 Abnormal findings on diagnostic imaging of lung * J47.9 Bronchiectasis, uncomplicated * * New Labs:* Nodify Lung, Ordered: 03/24/21 * New Xrays:* CT Guidance For Needle Localization Unspecified Body Region, Ordered: 03/24/21 * Follow up:* Follow up after biopsy, liquid bx (nodify) Functional Status Functional Condition Comment Date Status Independent with all ADL's Activ e Independent with all IADL's Acti ve Mental Status Mental Condition Comment Date Status None Active Can understand information Activ e Referrals Description No Information Available
--- OUTSIDE RECORDS SUMMARY | 2021-04-16 09:07 | CCD | Continuity of Care Document ---
Author Author Cherelle BURRELL P.A. Organization Unknown Address [address] [place] [address] [place] [address] Phone [phone] Care Team Providers Care Filleter Name Role Phone Chris Renteria MD AUT [phone] Problems Description No Information Available Social History Type Date Description Comments Sex Unknown ETOH Use Occasionally consumes alcohol Tobacco Use Start: Unknown End: Unknown Patient is a former smoker as teen Allergies, Adverse Reactions, Alerts Active Allergies Criticality Reaction | Severity Comments Date Penicillin Unable to assess criticality Contact dermatitis 06/20/2016 Methylprednisolone Unable to assess criticality Contact dermatitis 06/20/2016 Medications Active Medications SIG Qnty Indications Ordering Provide r Date Bisoprolol Fumarate/Hydrochlorothiazide 5-6.25mg Tablets every day Unknown Omeprazole 10mg Capsules DR every morning Unknown Lialda Unknown Simvastatin Unknown Premarin 0.625mg/GM Cream Unknown Mvi Unknown Calcium 1000 + D Unknown 00 Coq10 Unknown Vitamin D Unknown Immunizations CPT Code Status Date Vaccine Lot # [id number] Given 06/20/2016 Tetanus (Td) Vaccine 7 Yrs> [id number] Vital Signs Date Vital Result Comment 02/12/2021 2:37pm BP Systolic 183 mmHg BP Diastolic 74 mmHg Heart Rate 59 /min Respiratory Rate 14 /min O2 % BldC Oximetry 97 % Body Temperature 96.0 F Weight 182.00 lb Height 63 inches 5'3" BMI (Body Mass Index) 32.2 kg/m2 Pain Level 0 02/04/2021 7:35pm BP Systolic 195 mmHg BP Diastolic 85 mmHg Heart Rate 69 /min Respiratory Rate 12 /min O2 % BldC Oximetry 99 % Body Temperature 96.6 F Weight 182.00 lb Height 63 inches 5'3" BMI (Body Mass Index) 32.2 kg/m2 Pain Level 3 Results Description No Information Available Procedures Date Code Description Status 02/04/2021 56321 Office/Outpatient New Low MDM 30 -44 Minutes Completed 02/04/2021 55950 Repair Superfic Wound < 2.6CM Sc alp/Neck/Axil/Genit/Trunk/Extr Completed Medical Devices Description No Information Available Encounters Type Date Location Provider Dx Diagnosis Office Visit 02/04/2021 6:25p Main Office NICOLETTE Morton S61 .402A Unspecified open wound of left hand, initial encounter Assessments Date Code Description Provider 02/12/2021 S61.402D Unspecified open wound of left h and, subsequent encounter Elvis Burrell, PGrisAGris 02/04/2021 S61.402A Unspecified open wound of left h and, initial encounter NICOLETTE Morton Plan of Treatment 02/12/2021 - Elvis Burrell, P.A.* S61.402D Unspecified open wound of left hand, subsequent encounter* Comments:* 3 sutures removed without difficultypatient tolerated wellno concernsreturn prn Functional Status Description No Information Available Mental Status Description No Information Available Referrals Description No Information Available
--- OUTSIDE RECORDS SUMMARY | 2021-04-16 09:07 | CCD | Continuity of Care Document ---
Author Author Cherelle HARRELL PA Organization Unknown Address [address] [place] [address] [place] [address] Phone [phone] Care Team Providers Care Seed Expert Name Role Phone Chris Renteria MD AUT [phone] Problems Description No Information Available Social History [...] CPT Code Status Date Vaccine Lot # [id number] Given 06/20/2016 Tetanus (Td) Vaccine 7 Yrs> [id number] Vital Signs Date Vital Result Comment 02/04/2021 7:35pm BP Systolic 195 mmHg BP Diastolic 85 mmHg Heart Rate 69 /min Respiratory Rate 12 /min O2 % BldC Oximetry 99 % Body Temperature 96.6 F Weight 182.00 lb Height 63 inches 5'3" BMI (Body Mass Index) 32.2 kg/m2 Pain Level 3 06/20/2016 9:42am BP Systolic 175 mmHg BP Diastolic 68 mmHg Heart Rate 61 /min O2 % BldC Oximetry 96 % Body Temperature 99.0 F Weight 183.00 lb Height 63 inches 5'3" BMI (Body Mass Index) 32.4 kg/m2 Pain Level 4 Results Description No Information Available Procedures Date Code Description Status 02/04/2021 39397 Office/Outpatient New Low MDM 30 -44 Minutes Completed 02/04/2021 81859 Repair Superfic Wound < 2.6CM Sc alp/Neck/Axil/Genit/Trunk/Extr Completed Medical Devices Description No Information Available Encounters Type Date Location Provider Dx Diagnosis Office Visit 02/04/2021 6:25p Main Office NICOLETTE Morton S61 .402A Unspecified open wound of left hand, initial encounter Assessments Date Code Description Provider 02/04/2021 S61.402A Unspecified open wound of left h and, initial encounter NICOLETTE Morton Plan of Treatment No Information Available Functional Status Description No Information Available Mental Status Description No Information Available Referrals Description No Information Available
--- OUTSIDE RECORDS SUMMARY | 2021-04-16 09:07 | CCD | Continuity of Care Document ---
Author Author Cherelle BURRELL P.A. Organization Unknown Address [address] [place] [address] [place] [address] Phone [phone] Care Team Providers Care Liquor Bridge Operator Helper Name Role Phone Chris Renteria MD AUT [phone] Problems Description No Information Available Social History [...] CPT Code Status Date Vaccine Lot # [id number] Given 06/20/2016 Tetanus (Td) Vaccine 7 Yrs> [id number] Vital Signs Date Vital Result Comment 02/12/2021 [...] Available Procedures Date Code Description Status 02/04/2021 69670 Office/Outpatient New Low MDM 30 -44 Minutes Completed 02/04/2021 51718 Repair Superfic Wound < 2.6CM Sc alp/Neck/Axil/Genit/Trunk/Extr Completed Medical Devices Description No Information Available Encounters Type Date Location Provider Dx Diagnosis Office Visit 02/12/2021 1:30p Main Office Mitch Pradhan. S6 1.402D Unspecified open wound of left hand, subsequent encounter Office Visit 02/04/2021 6:25p Main Office NICOLETTE Morton S61 .402A Unspecified open wound of left hand, initial encounter Assessments Date Code Description Provider 02/12/2021 S61.402D Unspecified open wound of left h and, subsequent encounter Dread Pradhan 02/04/2021 S61.402A Unspecified open wound of left h and, initial encounter NICOLETTE Morton Plan of Treatment 02/12/2021 - Dread Pradhan* S61.402D Unspecified open wound of left hand, subsequent encounter* Comments:* 3 sutures removed without difficultypatient tolerated wellno concernsreturn prn Functional Status Description No Information Available Mental Status Description No Information Available Referrals Description No Information Available
--- OUTSIDE RECORDS SUMMARY | 2021-04-16 09:07 | CCD ---
Author Author Hugh Vogel MD [facility] Organization Hugh Vogel MD [facility] Address [address] [address] Phone Care Team Providers Care Collective Bargaining Specialist Name Role Phone Jaspreet GARZA, ANEESH, Hugh Pereira Unavailable [phone] Chris Renteria MD PP [phone] Reason for Referral No Reason for Referral Recorded Problems Includes: Active, inactive, and resolved Problems All Visits Onset Date - Time Resolved Date - Time Provider Co ndition Status Vitreous Disorders Degeneration 08/02/2019 - 12:00AM Bay Winters DO Active Pseudophakia 07/01/2018 - 12:00AM Sukumar Winters DO Active Cataract Senile Cortical 07/16/2017 - 12:00AM Unknown - Unknown Sukumar Winters DO Resolved Dry Eye Syndrome 07/16/2017 - 12:00AM Unknown - Unknown Sukumar lee DO Resolved Cataract Senile Cortical Bilateral 12/16/2016 - 12:00AM Unknown - Unknown Sukumar Winters DO Resolved History of Nicotine Dependence 12/16/2016 - 12:00AM Hugh Vogel MD, FACS Active Essential Hypertension 12/16/2016 - 12:00AM Hugh Rubio MD, FACS Active Ocular Rosacea 04/17/2014 - 12:00AM Hugh colby MD, FACS Active Note: Unchanged Drusen Right Eye 04/17/2014 - 12:00AM Hugh badillo MD, FACS Active Note: Unchanged Retinopathy Hypertensive Both Eyes 04/17/2014 - 12:00AM Hugh Vogel MD, FACS Active Note: Unchanged Corneal Dystrophy Endothelial Cornea Guttata 10/05/2013 - 12:00A Bay Vogel MD, FACS Active Note: Unchanged - of both ey es Crohn's Disease 04/03/2013 - 12:00AM Hugh brooks MD, FACS Active Note: Unchanged Vitreous Floaters Both Eyes 04/03/2013 - 12:00AM Matth ew Vianey DO Inactive Note: Unchanged Cataract Senile Cortical Anterior 09/29/2012 - 12:00AM Unknown - Unknown Sukumar Vianey DO Resolved Note: Stable - of both eyes Conjunctivitis Chronic Allergic 09/29/2012 - 12:00AM Hugh Vogel MD, FACS Active Note: Unchanged Cataract Senile Posterior Subcapsular Polar 09/29/2012 - 12: 00AM Unknown - Unknown Sukumar Vianey DO Resolved Note: Stable - of the left e ye Cataract Senile Nuclear 09/29/2012 - 12:00AM Unknown - Unknown M atthew Vianey DO Resolved Note: Stable - of both eyes Dry Eye Syndrome Both Eyes 09/29/2012 - 12:00AM Hugh Vogel MD, FACS Active Note: Stable Plan of Treatment Future Appointments Date Time Location Provider 1 Year Follow-Up 09/10/2021 9:10AM Hugh Vogel MD [facility] Sukumar Vianey Assessments Includes: Assessments for all patient encounters Findings Encounter Date Drusen of the right eye 1 Year Follow-Up with Sukumar salas DO 09/06/2020 Dry eye syndrome of both eyes 1 Year Follow-Up with Sukumar Vianey DO 09/06/2020 Endothelial corneal dystrophy cornea guttata 1 Year Fo llow-Up with Sukumar Vianey DO 09/06/2020 Pseudophakia 1 Year Follow-Up with Sukumar Vianey DO 09/06/2020 Vitreous degeneration 1 Year Follow-Up with Sukumar Johnsonei n DO 09/06/2020 Dry eye syndrome of both eyes 1 Year Follow-Up with Sukumar Vianey DO 08/02/2019 Endothelial corneal dystrophy cornea guttata 1 Year Fo llow-Up with Sukumar Vianey DO 08/02/2019 Pseudophakia 1 Year Follow-Up with Sukumar Vianey DO 08/02/2019 Vitreous degeneration 1 Year Follow-Up with Sukumar Weinstei n DO 08/02/2019 Bilateral regular astigmatism 3 - 4 WK Post CAT SX with Teodoro Winters DO 08/01/2018 Pseudophakia 3 - 4 WK Post CAT SX with Sukumar salas DO 08/01/2018 Pseudophakia 1 Week Post OP with Sukumar Winters DO 07/08/2018 Pseudophakia 1 Day Post OP with Sukumar Winters DO 07/01/2018 Nuclear senile cataract POST OP VISIT WITH PRE-OP with Thania Winters DO 06/24/2018 Pseudophakia POST OP VISIT WITH PRE-OP with Sukumar Gato ashley DO 06/24/2018 Cortical senile cataract 1 WK PREOP FOR SURGERY with Sukumar Winters DO 06/17/2018 Nuclear senile cataract 1 WK PREOP FOR SURGERY with Sukumar Winters DO 06/17/2018 Dry eye syndrome of both eyes Cataract Evaluation with Thania Winters DO 03/30/2018 Left cortical senile cataract Cataract Evaluation with Thania Winters DO 03/30/2018 Nuclear senile cataract [facility] 03/30/2018 Posterior vitreous detachment in both eyes Cataract Ev aluation with Sukumar iWnters DO 03/30/2018 Bilateral cortical senile cataract 8 Month Follow-Up w [facility] Hugh Vogel MD, FACS 03/15/2018 Dry eye syndrome of both eyes 8 Month Follow-Up with Tanna Vogel MD, FACS 03/15/2018 Fuchs' endothelial corneal dystrophy 8 Month Follow-Up with Hugh Vogel MD, FACS 03/15/2018 Nuclear senile cataract 8 Month Follow-Up with Hugh Torres MD, FACS 03/15/2018 Posterior subcapsular polar senile cataract 8 Month Fo llow-Up with Hugh Vogel MD, FACS 03/15/2018 Cortical senile cataract 7 Month Follow-Up with Hugh Drew MD, FACS 07/16/2017 Dry eye syndrome 7 Month Follow-Up with Hugh brooks MD, FACS 07/16/2017 Nuclear senile cataract 7 Month Follow-Up with Hugh Torres MD, FACS 07/16/2017 Posterior subcapsular polar senile cataract 7 Month Fo llow-Up with Hugh Vogel MD, FACS 07/16/2017 Bilateral cortical senile cataract 1 Year Follow-Up wi Hugh Vogel MD, FACS 12/16/2016 Drusen of the right eye 1 Year Follow-Up with Hugh Medina MD, FACS 12/16/2016 Essential hypertension 1 Year Follow-Up with Hugh Shepherd MD, FACS 12/16/2016 Fuchs' endothelial corneal dystrophy 1 Year Follow-Up with Hugh Vogel MD, FACS 12/16/2016 History of nicotine dependence 1 Year Follow-Up with Tanna Vogel MD, FACS 12/16/2016 Nuclear senile cataract 1 Year Follow-Up with Hugh Medina MD, FACS 12/16/2016 Posterior subcapsular polar senile cataract 1 Year Fol low-Up with Hugh Vogel MD, FACS 12/16/2016 Acute atopic conjunctivitis 1 Year Follow-Up with Hugh Rubio MD, FACS 12/17/2015 Bilateral cortical senile cataract 1 Year Follow-Up [facility] Hugh Vogel MD, FACS 12/17/2015 Chronic allergic conjunctivitis 1 Year Follow-Up with Hugh Vogel MD, FACS 12/17/2015 Drusen of the right eye 1 Year Follow-Up with Hugh Medina MD, FACS 12/17/2015 Essential hypertension 1 Year Follow-Up with Hugh Shepherd MD, FACS 12/17/2015 Fuchs' endothelial corneal dystrophy 1 Year Follow-Up with Hugh Vogel MD, FACS 12/17/2015 History of nicotine dependence 1 Year Follow-Up with Tanna Vogel MD, FACS 12/17/2015 Nuclear senile cataract 1 Year Follow-Up with Hugh Medina MD, FACS 12/17/2015 Posterior subcapsular polar senile cataract 1 Year Fol low-Up with Hugh Vogel MD, FACS 12/17/2015 Anterior cortical senile cataract both eyes 9 Month F ollow-Up with Hugh Vogel MD, FACS 12/18/2014 Bilateral astigmatism 9 Month Follow-Up with Hugh Shepherd MD, FACS 12/18/2014 Blepharitis in both eyes 9 Month Follow-Up with Hugh Drew MD, FACS 12/18/2014 Chronic allergic conjunctivitis both eyes 9 Month Fol low-Up with Hugh Vogel MD, FACS 12/18/2014 Drusen of the right eye 9 Month Follow-Up with Hugh Torres MD, FACS 12/18/2014 Dry eye syndrome of both eyes 9 Month Follow-Up with Tanna Vogel MD, FACS 12/18/2014 Endothelial corneal dystrophy cornea guttata both eye s 9 Month Follow-Up with Hugh Vogel MD, FACS 12/18/2014 Hypertensive retinopathy of both eyes 9 Month Follow-U p with Hugh Vogel MD, FACS 12/18/2014 Left hypermetropia 9 Month Follow-Up with Hugh brooks MD, FACS 12/18/2014 Nuclear senile cataract both eyes 9 Month Follow-Up w ith Hugh Vogel MD, FACS 12/18/2014 Posterior subcapsular polar senile cataract left eye 9 Month Follow-Up with Hugh Vogel MD, FACS 12/18/2014 Vitreous floaters in both eyes 9 Month Follow-Up with Hugh Vogel MD, FACS 12/18/2014 Anterior cortical senile cataract of both eyes 6 [place] [facility] Follow-Up with Hugh Vogel MD, FACS 04/17/2014 Blepharitis in both eyes 6 Month Follow-Up with Hugh Drew MD, FACS 04/17/2014 Chronic allergic conjunctivitis of both eyes 6 Month Follow-Up with Hugh Vogel MD, FACS 04/17/2014 Dermatochalasis of both eyes 6 Month Follow-Up with Jeremy Vogel MD, FACS 04/17/2014 Drusen of the right eye 6 Month Follow-Up with Hugh Torres MD, FACS 04/17/2014 Dry eye syndrome of both eyes 6 Month Follow-Up with Tanna Vogel MD, FACS 04/17/2014 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 6 Month Follow-Up with Hugh Vogel MD, FACS 04/17/2014 Hypertensive retinopathy of both eyes 6 Month Follow-U p with Hugh Vogel MD, FACS 04/17/2014 Nuclear senile cataract of both eyes 6 Month Follow-U p with Hugh Vogel MD, FACS 04/17/2014 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 6 [place] Follow-Up with Hugh Vogel MD, FACS 04/17/2014 Posterior subcapsular polar senile cataract of the le ft eye 6 Month Follow-Up with Hugh Vogel MD, FACS 04/17/2014 Rosacea on face- active 6 Month Follow-Up with Hugh Drew MD, FACS 04/17/2014 Vitreous floaters in both eyes 6 Month Follow-Up with Hugh Vogel MD, FACS 04/17/2014 Anterior cortical senile cataract of both eyes 6 [place] Follow-Up with Hugh Vogel MD, FACS 10/05/2013 Chronic allergic conjunctivitis of both eyes 6 Month Follow-Up with Hugh Vogel MD, FACS 10/05/2013 Dermatochalasis of both eyes 6 Month Follow-Up with Jeremy Vogel MD, FACS 10/05/2013 Dry eye syndrome of both eyes 6 Month Follow-Up with Tanna Vogel MD, FACS 10/05/2013 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 6 Month Follow-Up with Hugh Vogel MD, FACS 10/05/2013 Nuclear senile cataract of both eyes 6 Month Follow-U p with Hugh Vogel MD, FACS 10/05/2013 Posterior subcapsular polar senile cataract of the le ft eye 6 Month Follow-Up with Hugh Vogel MD, FACS 10/05/2013 Vitreous floaters in both eyes 6 Month Follow-Up with Hugh Vogel MD, FACS 10/05/2013 Anterior cortical senile cataract of both eyes 6 [place] Follow-Up with Hugh Voegl MD, FACS 04/03/2013 Chronic allergic conjunctivitis of both eyes 6 Month Follow-Up with Hugh Vogel MD, FACS 04/03/2013 Crohn's disease 6 Month Follow-Up with Hugh brooks MD, FACS 04/03/2013 Dermatochalasis of both eyes 6 Month Follow-Up with Jeremy Vogel MD, FACS 04/03/2013 Dry eye syndrome of both eyes 6 Month Follow-Up with Tanna Vogel MD, FACS 04/03/2013 Nuclear senile cataract of both eyes 6 Month Follow-U p with Hugh Vogel MD, FACS 04/03/2013 Posterior subcapsular polar senile cataract of the le ft eye 6 Month Follow-Up with Hugh Vogel MD, FACS 04/03/2013 Vitreous floaters in both eyes 6 Month Follow-Up with Hugh Vogel MD, FACS 04/03/2013 Anterior cortical senile cataract 4 Month Follow-Up wi th Hugh Vogel MD, FACS 09/29/2012 Chronic allergic conjunctivitis 4 Month Follow-Up with Hugh Vogel MD, FACS 09/29/2012 Dry eye syndrome of both eyes 4 Month Follow-Up with Tanna Vogel MD, FACS 09/29/2012 Nuclear senile cataract 4 Month Follow-Up with Hugh Torres MD, FACS 09/29/2012 Posterior subcapsular polar senile cataract 4 Month Fo llow-Up with Hugh Vogel MD, FACS 09/29/2012 Vitreous floaters in both eyes 4 Month Follow-Up with Hugh Vogel MD, [facility] 09/29/2012 Instructions Instructions not supported for this document typeNo Instructions Recorded Medical Equipment - Implanted Devices Includes: Current and historical DevicesNo Medical Equipment Recorded Medications Includes: Current and historical Medications Current Medications (continue as prescribed) Calcium 500 MG Oral Tablet 09/06/2020 Provider: Diagnosis: Mesalamine 500 mg Oral Tablet 09/06/2020 Provider: Diagnosis: Vitamin D2 1.25 MG Oral Tablet 09/06/2020 Provider: Diagnosis: Co Q 10 200MG Oral Tablet 07/16/2017 Provider: Diagnosis: Omeprazole 20MG Oral Capsule Delayed Release 12/16/2016 Provider: Diagnosis: once every other day metroNIDAZOLE 0.75% EX GEL 04/17/2014 Provider: Diagnosis: Lialda 1.2 GM OR TBEC 10/05/2013 Provider: Diagnosis: Simvastatin 20 MG OR TABS 09/29/2012 Provider: Diagnosis: Branson 3 1000 MG OR CAPS 09/29/2012 Provider: Diagnosis: Premarin 0.625 MG/GM VA CREA 09/29/2012 Provider: Diagnosis: Bisoprolol-hydroCHLOROthiazide 5-6.25 MG TABS 09/29/2012 Provider: Diagnosis: Past Medications on file Ofloxacin 0.3% Ophthalmic Solution 06/30/2018 - 07/08/2018 Jacob arenas: Sukumar Winters DO Diagnosis: Age-related nuclear cataract, right eye use one drop four times a day in the right eye for 1 week Besivance 0.6% Ophthalmic Suspension 06/24/2018 - 07/08/2018 Provider: Sukumar Winters DO Diagnosis: Cortical age-related cataract, right eye Three days prior to surgery start one drop three times a day in the right eye Pred Forte 1% Ophthalmic Suspension 06/24/2018 - 08/02/2019 Provider: Sukumar Winters DO Diagnosis: Cortical age-related cataract, left eye One drop four times a day in both eyes BromSite 0.075% Ophthalmic Solution 06/24/2018 - 08/02/2019 Provider: Sukumar Winters DO Diagnosis: Cortical age-related cataract, left eye One drop twice a day in both eyes Pred Forte 1% Ophthalmic Suspension 06/17/2018 - 06/24/2018 Provider: Sukumar Winters DO Diagnosis: Cortical age-related cataract, left eye Day of surgery remove patch start one drop four times a day in the left eye Besivance 0.6% Ophthalmic Suspension 06/17/2018 - 06/24/2018 Provider: Sukumar Winters DO Diagnosis: Cortical age-related cataract, left eye Three days prior to surgery start one drop three times a day in the left eye BromSite 0.075% Ophthalmic Solution 06/17/2018 - 06/24/2018 Provider: Sukumar Winters DO Diagnosis: Cortical age-related cataract, left eye Three days prior to surgery start one dr op two times a day in the left eye RUN CARD Calcium 600+D [id number] Oral Tablet 12/16/2016 - 2020 Provider: Diagnosis: Pataday 0.2% OP SOLN 04/17/2014 - 04/12/2015 Provider: Hugh Vogel MD, FACS Diagnosis: Chr Allrg Conjunctiv NEC KEEP ON FILE Pataday 0.2% OP SOLN 10/05/2013 - 04/17/2014 Provider: Hugh Vogel MD, FACS Diagnosis: Chr Allrg Conjunctiv NEC Doxycycline Hyclate 100 MG OR TABS 04/03/2013 - 05/01/2013 P rovider: Diagnosis: Pataday 0.2% OP SOLN 04/03/2013 - 10/05/2013 Provider: Hugh Vogel MD, FACS Diagnosis: Chr Allrg Conjunctiv NEC Co Q-10 100 MG OR CAPS 09/29/2012 - 07/16/2017 Provider: Diagnosis: RA Vitamins Complete Childrens 60 MG OR CHEW 09/29/2012 - Provider: Diagnosis: Calcium 600+D 600-400 MG-UNIT OR TABS 09/29/2012 - 7 Provider: Diagnosis: Pataday 0.2% OP SOLN 09/29/2012 - 04/03/2013 Provider: Diagnosis: Asacol 400 MG OR TBEC 09/29/2012 - 10/05/2013 Provider: Diagnosis: 6 times daily Omeprazole 20 MG OR CPDR 09/29/2012 - 12/16/2016 Provider: Diagnosis: Vitamin D2 50 MCG (1999 UT) OR TABS 09/29/2012 - 10/05/2013 Provider: Diagnosis: 50,000 units on Wednesday Pataday 0.2% OP SOLN 09/29/2012 - 04/27/2013 Provider: Hugh Vogel MD, FACS Diagnosis: Chr Allrg Conjunctiv NEC KEEP ON FILE. Medications Administered Includes: Administered Medications in patient's chartNo Administered Medications Recorded Vital Signs Includes: Vital Signs from 01/24/2020 through 01/23/2021No Vital Signs Recorded For Specified Dates Results Includes: Results from 01/24/2020 through 01/23/2021No Results Recorded For Specified Dates History of Present Illness History of Present Illness not supported for this document typeNo History of Present Illness Recorded Social History Description Last Updated Tobacco non-user 09/06/2020 Alcohol 09/06/2020 No tobacco use 09/06/2020 Not using drugs 09/06/2020 Smoking status : Former smoker 09/06/2020 Previous smoking history 04/03/2013 Alcohol use 09/29/2012 Procedures and Surgical History Includes: Procedures from 01/24/2020 through 01/23/2021 Procedures Code Diagnosis Performing Provider Service Location Service Date Intermediate Eye Exam Established Patient 95[address] Endothelial corneal dystrophy, bilateral, Dry eye syndrome of bilateral lacrimal glands, Drusen (degenerative) of macula, right eye, Vitreous degeneration, bilateral Sukumar Ivey MD [facility] 09/06/2020 Surgical History Last Updated Surgical / procedural history Biopsy of spot on lung 08/2019, right Ovary and fillopian tube removed 12/201909/06/2020 History of cataract surgery PCIOL OS 06/23/18, OD 06/30 - Dr. Winters 09/06/2020 Surgical / procedural history : 2 C-Sections 5 Medical History Includes: Medical History in patient's chart Description Last Updated Recent change in medical history Cataract Sx PCIOL OD 06/30/18 - Dr. Winters 09/06/2020 Reported medical history : Crohn's Colitis, GERD, Acti quita Keratosis on the nose 04/03/2013 Currently wearing eyeglasses 09/29/2012 Crohn's Collitis 09/29/2012 History of hyperlipidemia 09/29/2012 History of hypertension 09/29/2012 Family History Includes: Family History in patient's chart Description Last Updated Family history of cataract Grandparent 09/06/2020 Fraternal history of cataract 09/06/2020 Fraternal history of diabetes mellitus 09/06/2020 Fraternal history of heart disease 09/06/2020 Fraternal history of hypertension 09/06/2020 Maternal history of heart disease 09/06/2020 Maternal history of hypertension 09/06/2020 Paternal history of heart disease 09/06/2020 Paternal history of hypertension 09/06/2020 Sororal history of family history of cancer 09/06/2020 Fraternal history of type 1 diabetes mellitus 12/19/19 15 Maternal history of cataract 12/18/2014 Maternal history of glaucoma 12/18/2014 Sororal history of hypertension 12/18/2014 Family history of diabetes mellitus 07/05/2014 Family history of hypertension 07/05/2014 Review of Systems Review of Systems not supported for this document typeNo Review of Systems Recorded Mental Status Mental Status not supported for this document type Description Oriented to time, place, and person Functional Status Functional Status not supported for this document typeNo Functional Status Recorded Physical Exam Physical Exam not supported for this document typeNo Physical Exam Recorded Immunizations Includes: Immunizations in patient's chartNo Immunizations Recorded Allergies Includes: Active, inactive, and resolved Allergies Substance Type Reaction Onset Date - Time Resolved Date - Ti me Status Penicillins Allergy Skin Rashes, Hives 09/29/2012 - 12:00AM Active Naproxen Allergy Nausea, Vomiting, Diarrhea 09/29/2012 - 12:00AM Active methylPREDNISolone Allergy Skin Rashes, Hives 09/29/2012 - 12:00AM Active Encounters Includes: Encounters from 01/24/2020 through 01/23/2021 Encounter Provider Location Date Check-In Time Check-Out Time D iagnosis 1 Year Follow-Up Sukumar Ivey MD [facility] 01/2021 7:34AM 9:15AM Pseudophakia, Corneal Dystro phy Endothelial Cornea Guttata, Dry Eye Syndrome Both Eyes, Vitreous Disorders Degeneration, Drusen Right Eye Insurance Includes: Active Insurance Policies Plan Name Member ID Group # Subscriber Relationship Effective Da zaida 1 - Medicare Part B [facility] ([facility]) [id number] Cherelle Zabala Self 2 - [employer] /PRIOR AUTHS NEEDED [id number] Jyoti Zabala Self Advance Directives Includes: Current Advance DirectivesNo Advance Directives Recorded Health Concerns Includes: Active Health ConcernsNo Active Health Concerns Recorded Goals Includes: Active GoalsNo Active Goals Recorded Interventions Includes: Interventions for active GoalsNo Interventions Recorded Evaluations & Outcomes Includes: Evaluations & Outcomes for active GoalsNo Outcomes Recorded
--- OUTSIDE RECORDS SUMMARY | 2021-04-16 09:07 | CCD | Continuity of Care Document ---
Author Author Cherelle HARRELL PA Organization Unknown Address [address] [place] [address] [place] [address] Phone [phone] Care Team Providers Care Aerospace Engineer Name Role Phone Chris Renteria MD AUT [phone] Problems Description No Information Available Social History [...] CPT Code Status Date Vaccine Lot # [id number] Given 06/20/2016 Tetanus (Td) Vaccine 7 Yrs> [id number] Vital Signs Date Vital Result Comment 02/04/2021 [...] Available Procedures Date Code Description Status 02/04/2021 28238 Office/Outpatient New Low MDM 30 -44 Minutes Completed 02/04/2021 [id number] Repair Superfic Wound < 2.6CM Sc alp/Neck/Axil/Genit/Trunk/Extr [...]
--- OUTSIDE RECORDS SUMMARY | 2021-04-16 09:07 | CCD | Continuity of Care Document ---
Author Author Cherelle RENTERIA M.D. Organization Unknown Address [address] [place] [id number] Phone [phone] Problems Active Problems Provider Date Hyperlipidemia Chris Renteria M.D. Onset: 3 Gastroesophageal reflux disease Chris Renteria M.D. Onse t: 04/10/2013 Benign essential hypertension Chris Renteria M.D. Onset: 04/10/2013 Vitamin D deficiency Chris Renteria M.D. Onset: 04/10/20 13 Essential hypertension Chris Renteria M.D. Onset: 2014 Social History Type Date Description Comments Sex Unknown ETOH Use Drinks 4 Alcoholic Beverages Per Week Tobacco Use Start: Unknown End: Unknown Patient is a former smoker Recreational Drug Use Denies Drug Use Allergies and adverse reactions Active Allergies Criticality Reaction | Severity Comments Date Penicillin Unable to assess criticality rash 04/10/2013 Methylprednisolone Unable to assess criticality rash 04/10/2013 Medications Active Medications SIG Qnty Indications Ordering Provide r Date Calcium 500 + D [id number] Tab lets 3 by mouth qd OTC Chris Renteria M.D. 07/05/19 21 Vitamin D3 50mcg (1999 Ut) Capsule s 1 by mouth every day OTC Chris Renteria M.D. 02/23/20 20 Miralax [id number] Packet 1 packet mixed with liquid daily 90units Kerry Norman FNP- 0 Shingrix 50mcg/0.5ML Suspension Re c as directed 1units Chris Renteria M.D. 06/17/19 19 One Daily Essential Tablets Unknown 04/10/2013 Co Q-10 100mg Capsules 1 po q d Unknown 04/10/2013 Bisoprolol Fumarate/Hydrochlorothiazide 5-6.25mg Tablets 1 by mouth every day 90taChris Venegas M.D. 04/10/2013 Simvastatin 20mg Tablets take one tablet by mouth every day 90taChris Venegas M.D. 04/10 Biotin [id number] Tablets 1 by mouth every day Unknown Mesalamine 1.2gm Tablets DR 1 po bid Unknown Metronidazole 0.75% Gel apply sparingly to the affected area 1-2 times daily prn Unknown Triamcinolone Acetonide 0.025% Cre am apply topically for skin allergy prn Unknown [address] take one capsule by mouth every morning maximum daily dose = 1 Unknown Immunizations CPT Code Status Date Vaccine Reaction Lot # [id number] Given 03/11/2016 Prevnar 13 Pneum o. Conj Ped. Vaccine 13 Valent (PCV13) [place] Use 76310 Given 04/29/2010 Tdap Tetanus,Dip htheria Toxoids/Acellular Pertussis 7Yrs Or Older 13713 Given 04/11/2010 Zoster (Shingles) Vaccine 80780 Given 11/27/2006 Pneumococcal Immunization 69633 Refused 05/17/2017 Influenza Virus Vaccine, Quadrivalent, Slit Virus, Im Use 3Y & Up 25753 Refused 05/05/2016 Influenza Virus Vaccine, Quadrivalent, Slit Virus, Im Use 3Y & Up [address]4300 Refused 04/23/2015 Influenza Vaccin e (Fluzone) 3Yrs Of Age Or Older Medicare Plans Flu vaccine given at [facility] 02/28/15. [id number] Vital Signs Date Vital Result Comment 01/08/2021 10:02am BP Systolic 128 mmHg BP Diastolic 66 mmHg Body Temperature 98.0 F Heart Rate 50 /min Respiratory Rate 12 /min Height 63.75 inches 5'3.75" Weight 183.00 lb [place] Body Weight 115 lb BMI (Body Mass Index) 31.7 kg/m2 O2 % BldC Oximetry 97 % 07/05/2020 10:11am BP Systolic 126 mmHg BP Diastolic 76 mmHg Body Temperature 97.3 F Heart Rate 50 /min Respiratory Rate 12 /min Height 63.75 inches 5'3.75" Weight 186.00 lb [place] Body Weight 115 lb BMI (Body Mass Index) 32.2 kg/m2 O2 % BldC Oximetry 97 % Results Test Acquired Date Facility Test Result H/L Range Note Complete Blood Count 04/15/2021 [facility] ( Interface) [phone] White Blood Count 7.1 10 Normal 4.0-10.0 Red Blood Count 4.01 10 Normal 4.00-5.40 Hemoglobin 12.3 g/dL Normal 12.0-15.5 Hematocrit 37.1 % Normal 36.0-47.0 Mean Corpuscular Volume 92.5 fl Normal 80.0-96.0 Mean Corpuscular Hemoglobin 30.7 pg Normal 27.0-33.0 Mean Corpuscular HGB Conc 33.2 g/dL Normal 32.0-36.5 Red Cell Distribution Width 12.8 % Normal 11.5-14.5 Platelet Count, Automated 192 10 Normal 150-450 Nucleated Red Blood Cell % 0.0 % Normal 0-0 Laboratory test finding [facility] [phone] Erythrocyte Sedimentation Rate 32 mm/hr High 0 -30 Basic Metabolic Profile 04/15/2021 [facility] (Interface) [phone] Glucose, Fasting 99 mg/dL Normal 70-100 Blood Urea Nitrogen 22 mg/dL High 7-18 Creatinine For GFR 0.77 mg/dL Normal 0.55-1.30 Glomerular Filtration Rate > 60.0 Normal >39 1 Sodium Level 138 mEq/L Normal 136-145 Potassium Serum 4.5 mEq/L Normal 3.5-5.1 Chloride Level 104 mEq/L Normal 98-107 Carbon Dioxide Level 31 mEq/L Normal 21-32 Anion Gap 3 mEq/L Low 8-16 Calcium Level 10.0 mg/dL Normal 8.8-10.2 Renal Profile 04/15/2021 [facility] (I nterface) [phone] Phosphorus Level 3.7 mg/dL Normal 2.5-4.9 Albumin 3.5 GM/DL Normal 3.2-5.2 Total Iron Binding Capacit 04/15/2021 [facility] ical (Interface) [phone] Iron (Fe) 71 g/dL Normal 50-170 Total Iron Binding Capacity 329 g/dL Normal 250-450 Percent Saturation 21.6 % Normal 13.2-45.0 Laboratory test finding 04/15/2021 [facility] (Interface) [phone] Vitamin B12 Level 498 pg/mL Normal 247-911 2 Total 25(Oh) Vitamin D 60.6 NG/ML Normal 30.0-100.0 Ferritin 50 NG/ML Normal 8-252 Laboratory test finding 01/27/2021 [facility] (Interface) [phone] Erythrocyte Sedimentation Rate 23 mm/hr Normal 0 -30 C Reactive Protein Quantitativ < 0.30 mg/dL Normal 0.00-0.30 Comprehensive Metabolic Profil 01/04/2021 [facility] (Interface) [phone] Glucose, Fasting 99 mg/dL Normal 70-100 Blood Urea Nitrogen 19 mg/dL High 7-18 Creatinine For GFR 0.64 mg/dL Normal 0.55-1.30 Glomerular Filtration Rate > 60.0 Normal >39 3 Sodium Level 143 mEq/L Normal 136-145 Potassium Serum 4.2 mEq/L Normal 3.5-5.1 Chloride Level 108 mEq/L High 98-107 Carbon Dioxide Level 29 mEq/L Normal 21-32 Anion Gap 6 mEq/L Low 8-16 Calcium Level 9.0 mg/dL Normal 8.8-10.2 Ast/Sgot 16 U/L Normal 7-37 Alt/SGPT 28 U/L Normal 12-78 Alkaline Phosphatase 55 U/L Normal 45-117 Bilirubin,Total 0.4 mg/dL Normal 0.2-1.0 Total Protein 6.4 GM/DL Normal 6.4-8.2 Albumin 3.4 GM/DL Normal 3.2-5.2 Albumin/Globulin Ratio 1.1 Low 1.2-2.2 Lipid Panel 01/04/2021 [facility] (I nterface) [phone] Triglycerides Level 76 mg/dL Normal <150 Cholesterol Level 158 mg/dL Normal <200 HDL Cholesterol 59 mg/dL Normal >40 LDL Cholesterol 84 mg/dL Normal <100 Non-HDL-C 99 mg/dL Normal Cholesterol Risk Ratio 2.677 Normal <5 1 Units are mL/min/1.73 m2 Chronic Kidney Disease Staging per NKF: Stage I & II GFR >=60 Normal to Mildly Decreased Stage III GFR 30-59 Moderately Decreased Stage IV GFR 15-29 Severely Decreased Stage V GFR <15 Very Little GFR Left ESRD GFR <15 on MARKETING INFORMATION ANALYST 2 VITAMIN B12 NORMAL RANGE NORMAL 247 - 911 PG/ML INDETERMINATE 211 - 246 PG/ML DEFICIENT LESS THAN 211 PG/ML 3 Units are mL/min/1.73 m2 Chronic Kidney Disease Staging per NKF: Stage I & II GFR >=60 Normal to Mildly Decreased Stage III GFR 30-59 Moderately Decreased Stage IV GFR 15-29 Severely Decreased Stage V GFR <15 Very Little GFR Left ESRD GFR <15 on MARKETING INFORMATION ANALYST Procedures Date Code Description Status 01/08/2021 91863 Office/Outpatient Established Mo d MDM 30-39 Min Completed 02/08/2020 [id number] Mammogram Completed 01/09/2019 [id number] Mammogram Completed 01/05/2017 [id number] Mammogram Completed Medical Devices Description No Information Available Encounters Type Date Location Provider Dx Diagnosis Office Visit 01/08/2021 10:00a [facility] Chris Renteria M. D. I10 Essential (primary) hypertension E78.5 Hyperlipidemia, unspecified R73.01 Impaired fasting glucose Assessments Date Code Description Provider 01/08/2021 I10 Essential (primary) hypertension Chris Renteria M.D. 01/08/2021 E78.5 [facility], [facility] 01/08/2021 R73.01 Impaired fasting glucose Chris Irizarry M.D. Plan of Treatment Future Appointment(s):* 07/11/2021 10:00 am - Chris Renteria M.D. at [facility] Functional Status Description No Information Available Mental Status Description No Information Available Referrals Description No Information Available
--- OUTSIDE RECORDS SUMMARY | 2021-04-16 09:07 | CCD | Continuity of Care Document ---
Author Author Cherelle RENTERIA M.D. Organization Unknown Address [address] [place], [place] [address] Phone [phone] Problems Active Problems Provider Date Hyperlipidemia Chris [...] smoker Recreational Drug Use Denies Drug Use Allergies, Adverse Reactions, Alerts Active Allergies Criticality Reaction | Severity Comments Date Penicillin Unable to assess criticality rash 04/10/2013 Methylprednisolone Unable to assess criticality rash 04/10/2013 Medications Active Medications SIG Qnty Indications Ordering Provide r Date Calcium 500 + D [id number] Tab lets 3 by mouth qd OTC [...] every day 90taChris Venegas M.D. 04/10 Biotin 24075wfl Tablets 1 by mouth every day Unknown [...] Code Status Date Vaccine Reaction Lot # [id number] Given 03/11/2016 Prevnar 13 Pneum o. Conj Ped. Vaccine 13 Valent (PCV13) For [place] Use 80625 Given 04/29/2010 Tdap Tetanus,Dip htheria Toxoids/Acellular Pertussis 7Yrs Or Older 21824 Given 04/11/2010 Zoster (Shingles) Vaccine 07627 Given 11/27/2006 Pneumococcal Immunization 79473 Refused 05/17/2017 Influenza Virus Vaccine, Quadrivalent, Slit Virus, Im Use 3Y & Up [address]9311 Refused 05/05/2016 Influenza Virus Vaccine, Quadrivalent, Slit Virus, Im Use 3Y & Up 64719 Refused 04/23/2015 Influenza Vaccin e (Fluzone) 3Yrs Of Age Or Older Medicare Plans Flu vaccine given at [facility] 02/28/15. [id number] Vital Signs Date Vital Result Comment 01/08/2021 10:02am BP Systolic 128 mmHg BP Diastolic 66 mmHg Body Temperature 98.0 F Heart Rate 50 /min Respiratory Rate 12 /min Height 63.75 inches 5'3.75" Weight 183.00 lb [place] Body Weight 115 lb BMI (Body Mass Index) 31.7 kg/m2 O2 % BldC Oximetry 97 % 07/05/2020 10:11am BP Systolic 126 mmHg BP Diastolic 76 mmHg Body Temperature 97.3 F Heart Rate 50 /min Respiratory Rate 12 /min Height 63.75 inches 5'3.75" Weight 186.00 lb [place] Body Weight 115 lb BMI (Body Mass Index) 32.2 kg/m2 O2 % BldC Oximetry 97 % Results Test Acquired Date Facility Test Result H/L Range Note Laboratory test finding 01/27/2021 [facility] (Interface) [phone] Erythrocyte Sedimentation Rate 23 mm/hr Normal 0 -30 C Reactive Protein Quantitativ < 0.30 mg/dL Normal 0.00-0.30 Comprehensive Metabolic Profil 01/04/2021 [facility] (Interface) [phone] Glucose, Fasting 99 mg/dL Normal 70-100 Blood Urea Nitrogen 19 mg/dL High 7-18 Creatinine For GFR 0.64 mg/dL Normal 0.55-1.30 Glomerular Filtration Rate > 60.0 Normal >39 1 Sodium Level 143 mEq/L Normal 136-145 Potassium [...] Ratio 1.1 Low 1.2-2.2 Lipid Panel 01/04/2021 [facility] [phone] Triglycerides Level 76 mg/dL Normal <150 Cholesterol [...] Little GFR Left ESRD GFR <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 D. I10 Essential (primary) hypertension E78.5 Hyperlipidemia, unspecified R73.01 Impaired fasting glucose Assessments Date Code Description Provider 01/08/2021 I10 Essential (primary) hypertension Chris Renteria M.D. 01/08/2021 E78.5 [facility], [facility] 01/08/2021 R73.01 Impaired fasting glucose Chris Irizarry M.D. Plan of Treatment No Information Available Functional Status Description No Information Available Mental Status Description No Information Available Referrals Description No Information Available
--- OUTSIDE RECORDS SUMMARY | 2021-04-16 09:07 | CCD | Continuity of Care Document ---
Author Author Cherelle MORALES DPM-PC Organization Unknown Address [address] [place] [address] Phone [phone] Care Team Providers Care Otr Owner Operator Truck Driver Name Role Phone Dexter Chris Srdru JACKMAN Unavailable Problems Active Problems Provider Date Colitis Monie Morales DPM-pc Onset: 05/01/2019 Crohn's disease Ladi Oneill Onset: 05/01/2019 Bursitis of left foot Ladi Oneill Onset: 09/10/19 21 Plantar fascial fibromatosis Ladi Oneill Onset: 0 09/09/2020 Calcaneal spur Ladi Oneill Onset: 02/07/2020 Peroneal tendinitis of left lower limb Jayce Oneill c Onset: 08/09/2019 Pain in limb Ladi Oneill Onset: 08/09/2019 Social History Type Date Description Comments Sex Unknown Tobacco Use Start: Unknown Never Smoked Cigarettes Tobacco Use Start: Unknown Never Smoked Cigars Tobacco Use Start: Unknown Never Smoked A Pipe Smoking Status Reviewed: 03/26/21 Never Smoked A Pipe Tobacco Use Start: Unknown Never Used Smokeless Tobacco Tobacco Use Start: Unknown Patient has never smoked Allergies and adverse reactions Active Allergies Criticality Reaction | Severity Comments Date Penicillin Unable to assess criticality 05/01/2019 Medrol Unable to assess criticality 05/01/2019 Medications Active Medications SIG Qnty Indications Ordering Provide r Date Mesalamine 1.2gm Tablets Jimmy Calles Simvastatin 20mg Tablets Take One Tablet By Mouth Every Day Unknown Bisoprolol Fumarate/Hydrochlorothiazide 5-6.25mg Tablets Take One Tablet By Mouth Every Day Unkno wn Premarin 0.625mg/GM Cream Insert 1/2 GM Twice Weekly AT Bedtime Vaginally Unknown Omeprazole 10mg Capsules DR 1 by mouth every day 30caps Chris Renteria, 00 Medications Administered in Office Medication SIG Qnty Indications Ordering Provider Date Inject Tendon/Ligament Injection Ladi Oneill 10/17/2020 Inject Tendon/Ligament Injection Ladi Oneill 02/07/2020 Inject Tendon/Ligament Injection Ladi Oneill 10/04/2019 Immunizations Description No Information Available Vital Signs Date Vital Result Comment 05/01/2019 1:53pm Weight 185.38 lb Weight 84.086 kg Results Description No Information Available Procedures Date Code Description Status 10/17/2020 03295 Office/Outpatient Established SF MDM 10-19 Min Completed 10/17/2020 94243 Strapping Ankle/foot Completed 10/17/2020 55246 Inject Tendon/Ligament Completed Medical Devices Description No Information Available Encounters Description No Information Available Assessments Date Code Description Provider 10/17/2020 M79.672 Pain in left foot Ladi Oneill 10/17/2020 M72.2 Plantar fascial fibromatosis Ladi Rogers ra 10/17/2020 M77.52 Other enthesopathy of left foot and ankle Ladi Oneill Plan of Treatment No Information Available Functional Status Description No Information Available Mental Status Description No Information Available Referrals Description No Information Available"
--- OUTSIDE RECORDS SUMMARY | 2021-04-16 09:08 | CCD ---
Author Author [facility] Organization [facility] Address Unknown Phone Unavailable Care Team Providers Care Utility Division Project Manager Name Role Phone TRANGE, Elliott SIMONS PA Unavailable Unavailable LETTIERE, A KRISTYN PA Unavailable Unavailable LETTIERE, A KRISTYN PA Unavailable Unavailable LETTIERE, A KRISTYN PA Unavailable Unavailable LETTIERE, Elliott SIMONS PA Unavailable Unavailable LETTIERE, Elliott SIMONS PA Unavailable Unavailable LETTIERE, Elliott SIMONS PA Unavailable Unavailable LETTIERE, A KRITSYN PA Unavailable Unavailable LETTIERE, A KRISTYN PA Unavailable Unavailable LETTIERE, A KRISTYN PA Unavailable Unavailable LETTIERE, A KRISTYN PA Unavailable Unavailable LETTIERE, A KRISTYN PA Unavailable Unavailable LETTIERE, A KRISTYN PA Unavailable Unavailable LETTIERE, A KRISTYN PA Unavailable Unavailable LETTIERE, A KRISTYN PA Unavailable Unavailable LETTIERE, A KRISTYN PA Unavailable Unavailable LETTIERE, A KRISTYN PA Unavailable Unavailable LETTIERE, A KRISTYN PA Unavailable Unavailable LETTIERE, A KRISTYN PA Unavailable Unavailable LETTIERE, A KRISTYN PA Unavailable Unavailable LETTIERE, A KRISTYN PA Unavailable Unavailable LETTIERE, A KRISTYN PA Unavailable Unavailable LETTIERE, A KRISTYN PA Unavailable Unavailable LETTIERE, A KRISTYN PA Unavailable Unavailable LETTIERE, A KRISTYN PA Unavailable Unavailable LETTIERE, A KRISTYN PA Unavailable Unavailable LETTIERE, A KRISTYN PA Unavailable Unavailable LETTIERE, A KRISTYN PA Unavailable Unavailable LETTIERE, A KRISTYN PA Unavailable Unavailable LETTIERE, A KRISTYN PA Unavailable Unavailable LETTIERE, A KRISTYN PA Unavailable Unavailable Diana DELAROSA MD Unavailable Unavailable Diana DELAROSA MD Unavailable Unavailable Diana DELAROSA MD Unavailable Unavailable Diana DELAROSA MD Unavailable Unavailable Diana DELAROSA MD Unavailable Unavailable Diana DELAROSA MD Unavailable Unavailable Diana DELAROSA MD Unavailable Unavailable Diana DELAROSA MD Unavailable Unavailable Diana DELAROSA MD Unavailable Unavailable Diana DELAROSA MD Unavailable Unavailable Diana DELAROSA MD Unavailable Unavailable Diana DELAROSA MD Unavailable Unavailable Diana DELAROSA MD Unavailable Unavailable Diana DELAROSA MD Unavailable Unavailable Diana DELAROAS MD Unavailable Unavailable Diana DELAROSA MD Unavailable Unavailable Diana DELAROSA MD Unavailable Unavailable Diana DELAROSA MD Unavailable Unavailable Diana DELAROSA MD Unavailable Unavailable Diana DELAROSA MD Unavailable Unavailable Diana DELAROSA MD Unavailable Unavailable Diana DELAROSA MD Unavailable Unavailable Diana DELAROSA MD Unavailable Unavailable Diana DELAROSA MD Unavailable Unavailable Diana DELAROSA MD Unavailable Unavailable Diana DELAROSA MD Unavailable Unavailable Diana DELAROSA MD Unavailable Unavailable Diana DELAROSA MD Unavailable Unavailable Diana DELAROSA MD Unavailable Unavailable Diana DELAROSA MD Unavailable Unavailable Diana DELAROSA MD Unavailable Unavailable Diana DELAROSA MD Unavailable Unavailable Diana DELAROSA MD Unavailable Unavailable Diana DELAROSA MD Unavailable Unavailable Diana DELAROSA MD Unavailable Unavailable Diana DELAROSA MD Unavailable Unavailable Diana DELAROSA MD Unavailable Unavailable Diana DELAROSA MD Unavailable Unavailable Diana DELAROSA MD Unavailable Unavailable Diana DELAROSA MD Unavailable Unavailable Diana DELAROSA MD Unavailable Unavailable Diana DELAROSA MD Unavailable Unavailable Diana DELAROSA MD Unavailable Unavailable Diana DELAROSA MD Unavailable Unavailable Diana DELAROSA MD Unavailable Unavailable Diana DELAROSA MD Unavailable Unavailable Diana DELAROSA MD Unavailable Unavailable Diana DELAROSA MD Unavailable Unavailable Diana DELAROSA MD Unavailable Unavailable Diana DELAROSA MD Unavailable Unavailable Diana DELAROSA MD Unavailable Unavailable Diana DELAROSA MD Unavailable Unavailable Diana DELAROSA MD Unavailable Unavailable Diana DELAROSA MD Unavailable Unavailable Diana DELAROSA MD Unavailable Unavailable Diana DELAROSA MD Unavailable Unavailable Diana DELAROSA MD Unavailable Unavailable Diana DELAROSA MD Unavailable Unavailable Diana DELAROSA MD Unavailable Unavailable Diana DELAROSA MD Unavailable Unavailable Diana DELAROSA MD Unavailable Unavailable Diana DELAROSA MD Unavailable Unavailable Diana DELAROSA MD Unavailable Unavailable Diana DELAROSA MD Unavailable Unavailable Diana DELAROSA MD Unavailable Unavailable Diana DELAROSA MD Unavailable Unavailable Diana DELAROSA MD Unavailable Unavailable Diana DELAROSA MD Unavailable Unavailable Diana DELAROSA MD Unavailable Unavailable Diana DELAROSA MD Unavailable Unavailable Diana DELAROSA MD Unavailable Unavailable Diana DELAROSA MD Unavailable Unavailable Diana DELAROSA MD Unavailable Unavailable Diana DELAROSA MD Unavailable Unavailable Diana DELAROSA MD Unavailable Unavailable Diana DELAROSA MD Unavailable Unavailable Diana DELAROSA MD Unavailable Unavailable INDRA, MALINA PA Unavailable Unavailable INDRA, MALINA PA Unavailable Unavailable INDRA, MALINA PA Unavailable Unavailable INDRA, MALINA PA Unavailable Unavailable INDRA, MALINA PA Unavailable Unavailable INDRA, MALINA PA Unavailable Unavailable INDRA, MALINA PA Unavailable Unavailable INDRA, MALINA PA Unavailable Unavailable INDRA, MALINA PA Unavailable Unavailable INDRA, MALINA PA Unavailable Unavailable INDRA, MALINA PA Unavailable Unavailable INDRA, MALINA PA Unavailable Unavailable INDRA, MALINA PA Unavailable Unavailable INDRA, MALINA PA Unavailable Unavailable INDRA, MALINA PA Unavailable Unavailable INDRA, MALINA PA Unavailable Unavailable INDRA, MALINA PA Unavailable Unavailable INDRA, MALINA PA Unavailable Unavailable INDRA, MALINA PA Unavailable Unavailable INDRA, MALINA PA Unavailable Unavailable INDRA, MALINA PA Unavailable Unavailable INDRA, MALINA PA Unavailable Unavailable INDRA, MALINA PA Unavailable Unavailable INDRA, MALINA PA Unavailable Unavailable INDRA, MALINA PA Unavailable Unavailable INDRA, MALINA PA Unavailable Unavailable INDRA, MALINA PA Unavailable Unavailable INDRA, MALINA PA Unavailable Unavailable INDRA, MALINA PA Unavailable Unavailable INDRA, MALINA PA Unavailable Unavailable INDRA, MALINA PA Unavailable Unavailable INDRA, MALINA PA Unavailable Unavailable INDRA, MALINA PA Unavailable Unavailable INDRA, MALINA PA Unavailable Unavailable INDRA, MALINA PA Unavailable Unavailable INDRA, MALINA PA Unavailable Unavailable Diana DELAROSA MD Unavailable Unavailable Diana DELAROSA MD Unavailable Unavailable Diana DELAROAS MD Unavailable Unavailable Diana DELAROSA MD Unavailable Unavailable Diana DELAROSA MD Unavailable Unavailable Diana DELAROSA MD Unavailable Unavailable Diana DELAROSA MD Unavailable Unavailable Diana DELAROSA MD Unavailable Unavailable Diana DELAROSA MD Unavailable Unavailable Diana DELAROSA MD Unavailable Unavailable Diana DELAROSA MD Unavailable Unavailable Diana DELAROSA MD Unavailable Unavailable Diana DELAROSA MD Unavailable Unavailable Diana DELAROSA MD Unavailable Unavailable Diana DELAROSA MD Unavailable Unavailable Diana DELAROSA MD Unavailable Unavailable Diana DELAROSA MD Unavailable Unavailable Diana DELAROSA MD Unavailable Unavailable Diana DELAROSA MD Unavailable Unavailable Diana DELAROSA MD Unavailable Unavailable Diana DELAROSA MD Unavailable Unavailable Diana DELAROSA MD Unavailable Unavailable Diana DELAROSA MD Unavailable Unavailable Diana DELAROSA MD Unavailable Unavailable Diana DELARSOA MD Unavailable Unavailable Diana DELAROSA MD Unavailable Unavailable Diana DELAROSA MD Unavailable Unavailable Diana DELAROSA MD Unavailable Unavailable Diana DELAROSA MD Unavailable Unavailable Diana DELAROSA MD Unavailable Unavailable Diana DELAROSA MD Unavailable Unavailable Diana DELAROSA MD Unavailable Unavailable Diana DELAROSA MD Unavailable Unavailable Diana DELAROSA MD Unavailable Unavailable Diana DELAROSA MD Unavailable Unavailable Diana DELAROSA MD Unavailable Unavailable Diana DELAROSA MD Unavailable Unavailable Diana DELAROSA MD Unavailable Unavailable Diana DELAROSA MD Unavailable Unavailable Diana DELAROSA MD Unavailable Unavailable Diana DELAROSA MD Unavailable Unavailable Diana DELAROSA MD Unavailable Unavailable Diana DELAROSA MD Unavailable Unavailable Diana DELAROSA MD Unavailable Unavailable Diana DELAROSA MD Unavailable Unavailable Diana DELAROSA MD Unavailable Unavailable Diana DELAROSA MD Unavailable Unavailable Diana DELAROSA MD Unavailable Unavailable Diana DELAROSA MD Unavailable Unavailable Diana DELAROSA MD Unavailable Unavailable Diana DELAROSA MD Unavailable Unavailable Diana DELAROSA MD Unavailable Unavailable Diana DELAROSA MD Unavailable Unavailable Diana DELAROSA MD Unavailable Unavailable Diana DELAROSA MD Unavailable Unavailable Diana DEALROSA MD Unavailable Unavailable Diana DELAROSA MD Unavailable Unavailable Diana DELAROSA MD Unavailable Unavailable Diana DELAROSA MD Unavailable Unavailable Diana DELAROSA MD Unavailable Unavailable Diana DELAROSA MD Unavailable Unavailable Diana DELAROSA MD Unavailable Unavailable Diana DELAROSA MD Unavailable Unavailable Diana DELAROSA MD Unavailable Unavailable Diana DELAROSA MD Unavailable Unavailable Diana DELAROSA MD Unavailable Unavailable Diana DELAROSA MD Unavailable Unavailable Diana DELAROSA MD Unavailable Unavailable Diana DELAROSA MD Unavailable Unavailable Diana DELAROSA MD Unavailable Unavailable Diana DELAROSA MD Unavailable Unavailable Diana DELAROSA MD Unavailable Unavailable Diana DELAROSA MD Unavailable Unavailable Diana DELAROSA MD Unavailable Unavailable Diana DELAROSA MD Unavailable Unavailable Diana DELAROSA MD Unavailable Unavailable Diana DELAROSA MD Unavailable Unavailable ANDREW, J SY DPM PC Unavailable Unavailable ANDREW, J SY DPM PC Unavailable Unavailable ANDREW, J SY DPM PC Unavailable Unavailable ANDREW, J SY DPM PC Unavailable Unavailable ANDREW, J SY DPM PC Unavailable Unavailable ANDREW, J SY DPM PC Unavailable Unavailable ANDREW, J SY DPM PC Unavailable Unavailable ANDREW, J SY D[facility] PC Unavailable Unavailable ANDREW, J SY DPM PC Unavailable Unavailable ANDREW, J SY DPM PC Unavailable Unavailable ANDREW, J SY DPM PC Unavailable Unavailable ANDREW, J SY DPM PC Unavailable Unavailable ANDREW, J SY DPM PC Unavailable Unavailable ANDREW, J SY DPM PC Unavailable Unavailable ANDREW, J SY DPM PC Unavailable Unavailable ANDREW, J SY DPM PC Unavailable Unavailable ANDREW, J SY DPM PC Unavailable Unavailable ANDREW, J SY DPM PC Unavailable Unavailable ANDREW, J SY DPM PC Unavailable Unavailable ANDREW, J SY DPM PC Unavailable Unavailable ANDREW, J SY DPM PC Unavailable Unavailable ANDREW, J SY DPM PC Unavailable Unavailable ANDREW, J SY DPM PC Unavailable Unavailable ANDREW, J SY DPM PC Unavailable Unavailable ANDREW, J SY DPM PC Unavailable Unavailable ANDREW, J SY DPM PC Unavailable Unavailable ANDREW, J SY D[facility] Unavailable Unavailable ANDREW, J SY DPM PC Unavailable Unavailable ANITHA, A YOLA DO Unavailable Unavailable ANITHA, A YOLA DO Unavailable Unavailable ANITHA, A YOLA DO Unavailable Unavailable ANITHA, A YOLA DO Unavailable Unavailable ANITHA, A YOLA DO Unavailable Unavailable ANITHA, A YOLA DO Unavailable Unavailable ANITHA, A YOLA DO Unavailable Unavailable ANITHA, A YOLA DO Unavailable Unavailable ANITHA, A YOLA DO Unavailable Unavailable ANITHA, A YOLA DO Unavailable Unavailable ANITHA, A YOLA DO Unavailable Unavailable ANITHA, A YOLA DO Unavailable Unavailable ANITHA, A YOLA DO Unavailable Unavailable ANITHA, A YOLA DO Unavailable Unavailable ANITHA, A YOLA DO Unavailable Unavailable ANITHA, A YOLA DO Unavailable Unavailable ANITHA, A YOLA DO Unavailable Unavailable ANITHA, A YOLA DO Unavailable Unavailable ANITHA, A YOLA DO Unavailable Unavailable ANITHA, A YOLA DO Unavailable Unavailable ANITHA, A YOLA DO Unavailable Unavailable ANITHA, A YOLA DO Unavailable Unavailable Re-disclosure Warning The records that you are about to access may contain information from federally-assisted alcohol or drug abuse programs. If such information is present, then the following federally mandated warning applies: This information has been disclosed to you from records protected by federal confidentiality rules (42 CFR part 2). The federal rules prohibit you from making any further disclosure of this information unless further disclosure is expressly permitted by the written consent of the person to whom it pertains or as otherwise permitted by 42 CFR part 2. A general authorization for the release of medical or other information is NOT sufficient for this purpose. The Federal rules restrict any use of the information to criminally investigate or prosecute any alcohol or drug abuse patient.The records that you are about to access may contain highly sensitive health information, the redisclosure of which is protected by Article 27-F of the [facility] Public Health law. If you continue you may have access to information: Regarding HIV / AIDS; Provided by facilities licensed or operated by the [facility] Office of Mental Health; or Provided by the [facility] Office for People With Developmental Disabilities. If such information is present, then the following [facility] mandated warning applies: This information has been disclosed to you from confidential records which are protected by state law. State law prohibits you from making any further disclosure of this information without the specific written consent of the person to whom it pertains, or as otherwise permitted by law. Any unauthorized further disclosure in violation of state law may result in a fine or halfway sentence or both. A general authorization for the release of medical or other information is NOT sufficient authorization for further disc losure. Family History Family Member Name Family Member Gender Family Member Status Date o f Status Description Data Source(s) Unknown Unknown Problem [facility] ([facility]) Unknown Unknown Problem [facility] ([facility]) Unknown Unknown Problem [facility] ([facility]) Encounters Encounter Providers Location Date Indications Data Source(s ) Outpatient Attender: SY HAYES PCConsultant: PEDRO DELAROSA MD 03/26/2021 02:26:00 PM EDT - 03/26/2021 02:26:[address] [facility] Office Visit Attender: MALINA Santo ry 02/12/2021 01:30:00 PM EDT [facility] ([facility] Outpatient Attender: KRISTYN terryy 02/04/2021 06:25:00 PM EDT [facility] ([facility]) Outpatient Attender: PEDRO DELAROSA MD [facility] 03/2021 10:00:00 AM EDT [facility] ([facility] Outpatient Attender: SY MORALES DPM PCConsultant: PEDRO DELAROSA MD 10/17/2020 03:31:00 PM EDT - 10/17/2020 03:31:[address] [facility] Outpatient Attender: SY MORALES DPM PCConsultant: PEDRO DELAROSA MD 09/09/2020 11:09:00 AM EDT - 09/09/2020 11:09:[address] [facility] <td ID="encounterTypeDescriptionID0">1 Y ear Follow-Up</td><td>Yola Winters DO</td><td>Hugh Vogel MD [facility]</td><td>09/06/2020</td><td>7:34AM</td><td>9:15AM</td><td><content ID="encounterDiagnosisID0-0">Pseudophakia</content>, <content ID="encounterDiagnosisID0-1">Corneal Dystrophy Endothelial Cornea Guttata</content>, <content ID="encounterDiagnosisID0-2">Dry Eye Syndrome Both Eyes</content>, <content ID="encounterDiagnosisID0-3">Vitreous Disorders Degeneration</content>, <content ID="encounterDiagnosisID0-4">Drusen Right Eye</content></td>Outpatient Attender: YOLA Ivey MD [facility] 09/06/2020 07:34:00 AM EDT - 09/06/2020 09:15:00 AM ED T Vitreous Disorders DegenerationPseudophakiaDrusen Right EyeCorneal Dystrophy Endothelial Cornea GuttataDry Eye Syndrome Both Eyes [facility] (Hugh Shepherd MD [facility]) Vitreous Disorders Degeneration Pseudophakia 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 Patient discharged. Outpatient Attender: PEDRO DELAROSA MD [facility] 09/2020 09:00:00 AM EST [facility] ([facility] Immunizations Vaccine Date Status Description Data Source(s) COVID-19 VACCINE Pfizer 03/27/2021 12:00:00 AM EDT completed [facility] Vaccine Series Complete: YESThis Data wa s Submitted to [facility]. COVID-19 VACC, MRNA(PFIZER)/PF 03/27/2021 12:00:00 AM EDT completed [facility] COVID-19 VACCINE Pfizer 07/21/2020 12:00:00 AM EST completed [facility] Vaccine Series Complete: YESThis Data wa s Submitted to [facility]. COVID-19 VACCINE Pfizer 07/02/2020 12:00:00 AM EST completed [facility] Vaccine Series Complete: NOThis Data was Submitted to [facility]. VARICELLA-ZOSTER VIRUS GLYCOPROTEIN E,REC/AS01B ADJUVA NT/PF 03/23/2020 12:00:00 AM EDT completed [facility] Medications Medication Brand Name Start Date Product Form Dose Route Admi nistrative Instructions Pharmacy Instructions Status Indications Reaction Description Data Source(s) 240 mcg/0.7 mL 03/01/2021 12:00:00 AM EDT syringe 0 INJECT DIRECTED INJECT DIRECTED SOLD: 03/01/2021 [facility] Bisoprolol Fumarate 5 MG / Hydrochlorothiazide 6.25 MG Oral Tablet 5-6.25 mg BISOPROLOL/HYDROCHLOROTHIAZIDE 02/04/2021 12:00:00 AM EDT tablet 90 TAKE ONE TABLET BY MOUTH EVERY DAY TAKE ONE TABLET BY MOUTH EVERY DAY SOLD: 02/07/2021 [facility] 20 mg 12/20/2020 12:00:00 AM EDT tablet 90 TAKE ONE TABLET BY MOUTH EVERY DAY MAXIMUM DAILY DOSE = 1 TABLET TAKE ONE TABLET BY MOUTH EVERY DAY MAXIM UM DAILY DOSE = 1 TABLET SOLD: 12/23/2020 [facility] 20 mg 12/20/2020 12:00:00 AM EDT tablet 90 TAKE ONE TABLET BY MOUTH EVERY DAY MAXIMUM DAILY DOSE = 1 TABLET TAKE ONE TABLET BY MOUTH EVERY DAY MAXIM UM DAILY DOSE = 1 TABLET SOLD: 03/22/2021 [facility] 10 mg 12/05/2020 12:00:00 AM EDT capsule,delayed release (DR/EC) 90 TAKE ONE CAPSULE BY MOUTH EVERY DAY FOR 1-2 MONTHS THEN CAN DECREASE TO EVERY OTHER DAY TAKE ONE CAPSULE BY MOUTH EVERY DAY FOR 1-2 MONTHS THEN CAN DECREASE TO EVERY OTHER DAY SOLD: 03/05/2021 [facility] 10 mg 12/05/2020 12:00:00 AM EDT capsule,delayed release (DR/EC) 90 TAKE ONE CAPSULE BY MOUTH EVERY DAY FOR 1-2 MONTHS THEN CAN DECREASE TO EVERY OTHER DAY TAKE ONE CAPSULE BY MOUTH EVERY DAY FOR 1-2 MONTHS THEN CAN DECREASE TO EVERY OTHER DAY SOLD: 12/07/2020 [facility] Inject Tendon/Ligament 10/17/2020 12:00:00 AM EDT completed [facility] ([facility]) Medication administered onsite Calcium 500 MG Oral Tablet Calcium 500 MG Oral Tablet 2020 12:00:00 AM EDT 1 active Calcium [facility] (Hugh Shepherd MD [facility]) Mesalamine 500 mg Oral Tablet Mesalamine 500 mg Oral Tablet 09/06/2020 12:00:00 AM EDT 1 active Mesalamine [facility] ([facility]ugh Shepherd MD [facility]) Vitamin D2 1.25 MG Oral Tablet Vitamin D2 1.25 MG Oral Table t 09/06/2020 12:00:00 AM EDT 1 active Vitamin D2 [facility] (Hugh Shepherd MD [facility]) Bisoprolol Fumarate 5 MG / Hydrochlorothiazide 6.25 MG Oral Tablet 5-6.25 mg BISOPROLOL/HYDROCHLOROTHIAZIDE 08/30/2020 12:00:00 AM EDT tablet 90 TAKE ONE TABLET BY MOUTH EVERY DAY TAKE ONE TABLET BY MOUTH EVERY DAY SOLD: 11/30/2020 [facility] 5-6.25 mg 08/30/2020 12:00:00 AM EDT tablet 90 TAKE ONE TABLET BY MOUTH EVERY DAY TAKE ONE TABLET BY MOUTH EVERY DAY SOLD: 09/03/2020 [facility] 1.2 gram 07/29/2020 12:00:00 AM EST tablet,delayed release (DR/EC) 180 TAKE TWO TABLETS BY MOUTH EVERY DAY TAKE TWO TABLETS BY MOUTH EVERY DAY SOLD: 01/28/2021 [facility] 1.2 gram 07/29/2020 12:00:00 AM EST tablet,delayed release (DR/EC) 180 TAKE TWO TABLETS BY MOUTH EVERY DAY TAKE TWO TABLETS BY MOUTH EVERY DAY SOLD: 10/26/2020 [facility] 1.2 gram 07/29/2020 12:00:00 AM EST tablet,delayed release (DR/EC) 180 TAKE TWO TABLETS BY MOUTH EVERY DAY TAKE TWO TABLETS BY MOUTH EVERY DAY SOLD: 07/30/2020 [facility] Calcium Carbonate 1250 MG / Cholecalciferol 200 UNT Oral Tab let Calcium 500 + D 07/05/2020 12:00:00 AM EST ORAL active [facility] ([facility] 20 mg 06/21/2020 12:00:00 AM EST capsule,delayed release (DR/EC) 90 TAKE ONE CAPSULE BY MOUTH EVERY MORNING TAKE ONE CAPSULE BY MOUTH EVERY MORNING SOLD: 06/23/2020 [facility] 20 mg 06/21/2020 12:00:00 AM EST capsule,delayed release (DR/EC) 90 TAKE ONE CAPSULE BY MOUTH EVERY MORNING TAKE ONE CAPSULE BY MOUTH EVERY MORNING SOLD: 09/22/2020 [facility] 20 mg 06/21/2020 12:00:00 AM EST tablet 90 TAKE ONE TABLET BY MOUTH EVERY DAY TAKE ONE TABLET BY MOUTH EVERY DAY SOLD: 06/23/2020 [facility] 20 mg 06/21/2020 12:00:00 AM EST tablet 90 TAKE ONE TABLET BY MOUTH EVERY DAY TAKE ONE TABLET BY MOUTH EVERY DAY SOLD: 09/22/2020 [facility] 1.2 gram 04/30/2020 12:00:00 AM EST tablet,delayed release (DR/EC) 180 TAKE TWO TABLETS BY MOUTH EVERY DAY TAKE TWO TABLETS BY MOUTH EVERY DAY SOLD: 05/01/2020 [facility] 0.75 % 04/23/2020 12:00:00 AM EST lotion 59 APPLY TO FACE TWO TIMES A DAY APPLY TO FACE TWO TIMES A DAY SOLD: 04/27/2020 [facility] 5-6.25 mg 03/05/2020 12:00:00 AM EDT tablet 90 TAKE ONE TABLET BY MOUTH EVERY DAY TAKE ONE TABLET BY MOUTH EVERY DAY SOLD: 06/01/2020 [facility] 5-6.25 mg 03/05/2020 12:00:00 AM EDT tablet 90 TAKE ONE TABLET BY MOUTH EVERY DAY TAKE ONE TABLET BY MOUTH EVERY DAY SOLD: 03/06/2020 [facility] Cholecalciferol 2000 UNT Oral Capsule Vitamin D3 02/23/2020 12:00:00 AM EDT ORAL active [facility] ([facility] Calcium Carbonate 1250 MG Oral Tablet Calcium 02/23/2020 12:00:00 AM EDT ORAL completed [facility] ([facility] 20 mg 01/03/2020 12:00:00 AM EDT capsule,delayed release (DR/EC) 90 TAKE ONE CAPSULE BY MOUTH EVERY DAY IN THE MORNING TAKE ONE CAPSULE BY MOUTH EVERY DAY IN THE MORNING SOLD: 03/30/2020 [facility] 17 gram/dose 09/12/2019 12:00:00 AM EDT powder 1530 TAKE 1 CAPFUL BY MOUTH IN 8 OUNCES OF LIQUID ONCE DAILY NEEDED TAKE 1 CAPFUL BY MOUTH IN 8 OUNCES OF LIQUID ONCE DAILY NEEDED SOLD: 04/21/2020 [facility] 20 mg 06/21/2019 12:00:00 AM EST tablet 90 TAKE ONE TABLET BY MOUTH EVERY DAY TAKE ONE TABLET BY MOUTH EVERY DAY SOLD: 03/26/2020 [facility] Calcium 600+D [id number] Oral Tablet Calcium 600+D [id number] Oral Tablet 12/16/2016 12:00:00 AM EDT 1 aborted Calcium 600+D [facility] ([facility] Shepherd [facility]) Insurance Providers Payer name Policy type / Coverage type Policy ID Covered republican ID Covered republican's relationship to ordoñez Policy Ordoñez Plan Information MEDICARE A [id number] Self [id number] N25 [facility] [id number] Self [id number] [place] Part B [id number] Self [id number] [facility] [employer] [id number] Self [id number] [employer] [place] Other 0 [id number] Self 0 Medicare Part B [facility] Other 0 [id number] Self 0 MEDICARE PART A -O/P [id number] SELF PAY ONLY [id number] SP [id number] [facility] [id number] SP [id number] [facility] [id number] SP [id number] ANSI-Commercial [id number] ANSI-Medicare Part B [id number] [employer] [id number] SP [id number] MEDICARE [id number] SP [id number] SELF PAY ONLY [id number] SP [id number] [employer] [id number] SP [id number] SELF PAY UNAVAILABLE SP UNAVAILA BLE [employer] Medigap Part B [id number] Self Medicare Natl Gov't Servi Medicare Primary [id number] Self [employer] PPO S [id number] S [id number] MEDICARE P [id number] S [id number] A [facility] [id number] SP [id number] MEDICARE [id number] [facility] [id number] 18 [id number] MEDICARE PART A [facility] [id number] Problems, Conditions, and Diagnoses Code Display Name Description Problem Type Effective Dates Data Source(s) M7730 Calcaneal spur, unspecified foot Calcaneal spur, unspecified foot Diagnosis 03/26/2021 02:26:[address] [facility] M7672 Peroneal tendinitis, left leg Peroneal tendinitis, lef t leg Diagnosis 03/26/2021 02:26:[address] [facility] M7752 Other enthesopathy of left foot and ankl e Other enthesopathy of left foot and ankle Diagnosis 03/26/2021 02:26:[address] [facility] M722 Plantar fascial fibromatosis Plantar fascial fibromato sis Diagnosis 03/26/2021 02:26:[address] [facility] S35835 Pain in left foot Pain in left foot Diagnosis 03/26/2021 02:26:[address] 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 M72.2 Plantar fascial fibromatosis Plantar fascial fibromato sis Problem 09/09/2020 12:00:00 AM EDT [facility] ([facility]) M77.52 Bursitis of left foot Bursitis of left foot Problem 09/09/2020 12:00:00 AM EDT [facility] ([facility]) Surgeries/Procedures Procedure Description Date Indications Data Source(s) SIMPLE REPAIR SCALP/NECK/AX/GENIT/TRUNK 2.5CM/< 2020 12:00:00 AM EDT [facility] ([facility], [facility]) OFFICE OUTPATIENT NEW 30 MINUTES 02/04/2021 12:00:00 A M EDT [facility] ([facility]) OFFICE OUTPATIENT VISIT 25 MINUTES 01/08/2021 12:00:00 AM EDT [facility] ([facility] Inject Tendon/Ligament 10/17/2020 12:00:00 AM EDT [facility] ([facility]) Strapping Ankle/foot 10/17/2020 12:00:00 AM EDT [facility] ([facility]) OFFICE OUTPATIENT VISIT 10 MINUTES 10/17/2020 12:00:00 AM EDT [facility] ([facility]) Strapping Ankle/foot 09/09/2020 12:00:00 AM EDT [facility] ([facility]) Cataract surgery (procedure) History of cataract surge ry PCIOL OS 06/23/18, OD 06/30/18 - Dr. Winters 09/06/2020 12:00:00 AM EDT [facility] (Hugh Shepherd [facility]) Surgical / procedural history Biopsy of spot on lung 08/2019, right Ovary and fillopian tube removed 12/2019 Surgical / procedural history Biopsy of spot on lung 08/2019, right Ovary and fillopian tube removed 12/201909/06/2020 12:00:00 AM EDT [facility] (Hugh Shepherd [facility]) Intermediate Eye Exam Established Patient Intermediate Eye Exam Established Patient 09/06/2020 12:00:00 AM EDT [facility] (Azam id Elliott Shepherd [facility]) Results ID Date Data Source [id number] 04/15/2021 11:39:00 AM EST [facility] ([facility] Name Value Range Interpretation Code Description Data Arielle rce(s) Supporting Document(s) Calcidiol [Mass/volume] in Serum or Plasma 60.6 ng/mL 30.0- 100.0 Normal (applies to non-numeric results) [facility] ([facility] Cobalamin (Vitamin B12) [Mass/volume] in Serum or Plasma 498 pg/ mL 247-911 Normal (applies to non-numeric results) [facility] ([facility] VITAMIN B12 NORMAL RANGE NORMAL 247 - 911 PG/ML INDETERMINATE 211 - 246 PG/ML DEFICIENT LESS THAN 211 PG/ML Ferritin [Mass/volume] in Serum or Plasma 50 ng/mL 8-252 Normal (applies to non- numeric results) [facility] ([facility] ) ID Date Data Source [id number] 04/15/2021 11:39:00 AM EST [facility] ([facility] Name Value Range Interpretation Code Description Data Arielle rce(s) Supporting Document(s) Iron (Fe) 71 ug/dL 50-170 Normal (applies to non-numeric resul ts) [facility] ([facility] Total Iron Binding Capacity 329 ug/dL 250-450 Norm al (applies to non-numeric results) [facility] ([facility] ) Percent Saturation 21.6 % 13.2-45.0 Normal (applies to non-numer ic results) [facility] ([facility] ID Date Data Source [id number] 04/15/2021 11:39:00 AM EST [facility] ([facility] Name Value Range Interpretation Code Description Data Arielle rce(s) Supporting Document(s) Phosphorus Level 3.7 mg/dL 2.5-4.9 Normal (applies to non-numeric results) [facility] ([facility] Albumin 3.5 GM/DL 3.2-5.2 Normal (applies to non-numeric resul ts) [facility] ([facility] ID Date Data Source [id number] 04/15/2021 11:39:00 AM EST [facility] ([facility] Name Value Range Interpretation Code Description Data Arielle rce(s) Supporting Document(s) Blood Urea Nitrogen 22 mg/dL 7-18 Above high normal [facility] ([facility] Glucose, Fasting 99 mg/dL 70-100 Normal (applies to non-numeric results) [facility] ([facility] Creatinine For GFR 0.77 mg/dL 0.55-1.30 Normal (applies to non -numeric results) [facility] ([facility] Glomerular Filtration Rate Laboratory test result Normal (applies to non- numeric results) [facility] ([facility] ) <content>Units are mL/min/1.73 m2</content>
<content></content>
<content>Chronic Kidney Disease Staging per NKF:</content>
<content></content>
<content>Stage I & II GFR >=60 Normal to Mildly Decreased</content>
<content>Stage III GFR 30- 59 Moderately Decreased</content>
<content>Stage IV GFR 15-29 Severely Decreased</content>
<content>Stage V GFR <15 Very Little GFR Left</content>
<content>ESRD GFR <15 on SOAKER MEAT</content>
<content></content> Sodium Level 138 meq/L 136-145 Normal (applies to non-numeric res ults) [facility] ([facility] Potassium Serum 4.5 meq/L 3.5-5.1 Normal (applies to non-numeric results) [facility] ([facility] Chloride Level 104 meq/L 98-107 Normal (applies to non-numeric r esults) [facility] ([facility] Anion Gap 3 meq/L 8-16 Below low normal [facility] ( [facility] Carbon Dioxide Level 31 meq/L 21-32 Normal (applies to non-num jessie results) [facility] ([facility] Calcium Level 10.0 mg/dL 8.8-10.2 Normal (applies to non-numeric re sults) [facility] ([facility] ID Date Data Source [id number] 04/15/2021 11:39:00 AM EST [facility] Name Value Range Interpretation Code Description Data Arielle rce(s) Supporting Document(s) Erythrocyte sedimentation rate by Westergren method 32 mm/hr 0-30 Above high normal [facility] ([facility] ) ID Date Data Source [id number] 04/15/2021 11:39:00 AM EST [facility] ([facility] Name Value Range Interpretation Code Description Data Arielle rce(s) Supporting Document(s) White Blood Count 7.1 10 4.0-10.0 Normal (applies to non-numeri c results) [facility] ([facility] Red Blood Count 4.01 10 4.00-5.40 Normal (applies to non-numeric results) [facility] ([facility] Hemoglobin 12.3 g/dL 12.0-15.5 Normal (applies to non-numeric resul ts) [facility] ([facility] Mean Corpuscular Volume 92.5 fl 80.0-96.0 Normal ( applies to non-numeric results) [facility] ([facility] ) Hematocrit 37.1 % 36.0-47.0 Normal (applies to non-numeric resul ts) [facility] ([facility] Mean Corpuscular Hemoglobin 30.7 pg 27.0-33.0 Norm al (applies to non-numeric results) [facility] ([facility] ) Mean Corpuscular HGB Conc 33.2 g/dL 32.0-36.5 Normal (applies to non-numeric results) [facility] ([facility] ) Red Cell Distribution Width 12.8 % 11.5-14.5 Norm al (applies to non-numeric results) [facility] ([facility] ) Platelet Count, Automated 192 10 150-450 Normal (applies to non-numeric results) [facility] ([facility] ) Nucleated Red Blood Cell % 0.0 % 0-0 Normal (applies to n on-numeric results) [facility] ([facility] ID Date Data Source [id number] 01/27/2021 08:37:00 AM EDT [facility] ([facility] Name Value Range Interpretation Code Description Data Arielle rce(s) Supporting Document(s) Erythrocyte sedimentation rate by Westergren method 23 mm/hr 0-30 Normal (applies to non-numeric results) [facility] ([facility] C reactive protein [Mass/volume] in Serum or Plasma by High sensitivity method Laboratory test result 0.00-0.30 Normal (applies to non-numeric results) [facility] ([facility] ID Date Data Source [id number] 01/04/2021 08:42:00 AM EDT [facility] ([facility] Name Value Range Interpretation Code Description Data Arielle rce(s) Supporting Document(s) Triglycerides Level 76 mg/dL Normal (applies to non-nume chucky results) [facility] ([facility] Cholesterol Level 158 mg/dL Normal (applies to non-numeri c results) [facility] ([facility] HDL Cholesterol 59 mg/dL Normal (applies to non-numeric results) [facility] ([facility] LDL Cholesterol 84 mg/dL Normal (applies to non-numeric results) [facility] ([facility] Cholesterol Risk Ratio 2.677 Normal (applies to non-n umeric results) [facility] ([facility] Non-HDL-C 99 mg/dL Normal (applies to non-numeric resul ts) [facility] ([facility] ID Date Data Source [id number] 01/04/2021 08:42:00 AM EDT [facility] ([facility] Name Value Range Interpretation Code Description Data Arielle rce(s) Supporting Document(s) Glucose, Fasting 99 mg/dL 70-100 Normal (applies to non-numeric results) [facility] ([facility] Blood Urea Nitrogen 19 mg/dL 7-18 Above high normal [facility] ([facility] Creatinine For GFR 0.64 mg/dL 0.55-1.30 Normal (applies to non -numeric results) [facility] ([facility] Sodium Level 143 meq/L 136-145 Normal (applies to non-numeric res ults) [facility] ([facility] Glomerular Filtration Rate Laboratory test result Normal (applies to non- numeric results) [facility] ([facility] ) <content>Units are mL/min/1.73 m2</content>
<content></content>
<content>Chronic Kidney Disease Staging per NKF:</content>
<content></content>
<content>Stage I & II GFR >=60 Normal to Mildly Decreased</content>
<content>Stage III GFR 30- 59 Moderately Decreased</content>
<content>Stage IV GFR 15-29 Severely Decreased</content>
<content>Stage V GFR <15 Very Little GFR Left</content>
<content>ESRD GFR <15 on SOAKER MEAT</content>
<content></content> Chloride Level 108 meq/L 98-107 Above high normal [facility] ([facility] Potassium Serum 4.2 meq/L 3.5-5.1 Normal (applies to non-numeric results) [facility] ([facility] Carbon Dioxide Level 29 meq/L 21-32 Normal (applies to non-num jessie results) [facility] ([facility] Anion Gap 6 meq/L 8-16 Below low normal [facility] ( [facility] Ast/Sgot 16 U/L 7-37 Normal (applies to non-numeric resul ts) [facility] ([facility] Calcium Level 9.0 mg/dL 8.8-10.2 Normal (applies to non-numeric re sults) [facility] ([facility] Alkaline Phosphatase 55 U/L 45-117 Normal (applies to non-num jessie results) [facility] ([facility] Alt/SGPT 28 U/L 12-78 Normal (applies to non-numeric resul ts) [facility] ([facility] Bilirubin,Total 0.4 mg/dL 0.2-1.0 Normal (applies to non-numeric results) [facility] ([facility] Total Protein 6.4 GM/DL 6.4-8.2 Normal (applies to non-numeric re sults) [facility] ([facility] Albumin/Globulin Ratio 1.1 1.2-2.2 Below low normal [facility] ([facility] Albumin 3.4 GM/DL 3.2-5.2 Normal (applies to non-numeric resul ts) [facility] ([facility] ID Date Data Source [id number] 07/12/2020 09:35:00 AM [facility] [address] [place] [address] PHONE: [phone] FAX: [phone] Name .................. : SHANNAN STARR Jacob Acct Number.................. : [id number] ROOM. ................. : MR Number ................... : [id number] Stay type ............. : O/P Discharge Date......... ... : 07/11/20 Admit Date ......... : 07/11/20 Admit Phys .................... : WASHINGTON Amato Date of ....... : 1945 Family Phys ................... : WASHINGTON Amato Phone .................. : [phone] Age ................................ : 75 Film# .................. .:[id number] Sex ................................. : F Unsigned transcriptions are preliminary reports and do not represent a medical or legal document CT ABD & PELV W/O FOL W/IV/OR [id number] COMPLETE:07/11/20 12:39 BEM 4073 (REASON FOR ABDOMEN: R ADRENAL MASS CT ABDOMEN & PELVIS WITHOUT CONTRAST FOLLOWED BY WITH IV CONTRAST, 07/11/20: FINDINGS: Lung bases clear. Liver, spleen, adrenals, kidneys, pancreas and bowel loops are within normal limits. No signs of any focal inflammation identified. No abdominal wall defects. No sign of any ascites. Pelvic structures within normal limits and no abnormalities. IMPRESSION: No significant pathology noted. I agree with the findings and impression. While performing the above CT examination, radiation dose reduction was accomplished utilizing automated exposure control, adjusting of the mA and kV based on the patient's body size and/or the use of imperative reconstructive techniques. CT dose 2663.5 mGycm. Contrast agent in mL: 75 mL Isovue 370 Method of administration: Intravenous Electronically Reviewed and Signed By Ned Rodriguez MD , 07/12/20 09:35, MARISABEL Transcribe Initials: SSR, Transcribe Date: 07/11/20 14:38, Dictation Date: Page 1 of 2 [place] [address] PHONE: [phone] FAX: [phone] Name .................. : SHANNAN STARR Jacob Acct Number.................. : [id number] ROOM. ................. : MR Number ................... : [id number] Stay type ............. : O/P Discharge Date......... ... : 07/11/20 Admit Date ......... : 07/11/20 Admit Phys .................... : WASHINGTON Amato Date of ....... : 1945 Family Phys ................... : WASHINGTON Amato Phone .................. : [phone] Age ................................ : 75 Film# .................. .:[id number] Sex ................................. : F Unsigned transcriptions are preliminary reports and do not represent a medical or legal document CT ABD & PELV W/O FOL W/IV/OR [id number] COMPLETE:07/11/20 12:39 BEM 4073 (REASON FOR ABDOMEN: R ADRENAL MASS Copy for: WASHINGTON VASQUEZ via fax Copy for: 710 MED REC Page 2 of 2 Name Value Range Interpretation Code Description Data Arielle rce(s) Supporting Document(s) ID Date Data Source [id number] 07/05/2020 10:47:00 AM EST [facility] ([facility] Name Value Range Interpretation Code Description Data Arielle rce(s) Supporting Document(s) Trig 72 mg/dL 40-200 [facility] NORMAL RANGES Age WBC RBC HGB HCT MCV PLT Adult M 4.1-10.9 4.20-6.30 12.0-18.0 37.0-51.0 80-97 140-440 Adult F 4.1-10.9 4.04-5.48 12.0-18.0 37.0-51.0 80-97 140-440 0 -1 Yr 5.0-20.0 3.9-5.9 15-18 MV: 44 MV: 91 MV: 277 2-9 Yr. 6.0-17.0 3.8-5.4 11-13 MV: 37 MV: 78 MV: 300 10 Yrs. 5.0-13.0 3.8-5.4 12-15 MV: 39 MV: 80 MV: 250 NOTE: * FOR ADULT BLACK MALES AND FEMALES, NORMAL WBC IS 2.9-7.7 K/ML * FOR ADULT BLACK MALES AND FEMALES, NORMAL RBC,HGB, AND HCT IS 5% LESS SOURCE FOR DATA: travelmob 1800 OPERATION MANUAL( AUTOMATED BLOOD COUNTS AND DIFF.) APPENDIX B-3 CHRONIC KIDNEY DISEASE STAGING PER NKF: MALE GFR INTERPRETATION: 20-49 YRS: >60 mL/min Normal 50-59 YRS: >56 mL/min Normal 60-69 YRS: >49 mL/min Normal 70-79 YRS: >42 mL/min Normal 80 and above >35 mL/min Normal FEMALE GRF INTERPRETATION: 20-39 YRS: >60 mL/min Normal 40-49 YRS: >58 mL/min Normal 50-59 YRS: >51 mL/min Normal 60-69 YRS: >45 mL/min Normal 70-79 YRS: >39 mL/min Normal 80 and above >32 mL/min NormalCLASSIFICATION CHOLESTEROL FOR ADULTS CHILDREN/ADOLESCENTS* DESIRABLE: <200 MG/DL <170 MG/DL BORDER-LINE HIGH RISK: 200-239 MG/DL 170-199 MG/DL HIGH RISK: >240 MG/DL >200 MG/DL CLASS. FOR PRIMARY LDL CHOL PREVENTION: LDL CHOL-CHILD/ADOLESCENTS* DESIRABLE: <130 MG/DL <110 MG/DL BORDERLINE-HIGH RISK: 130- 159 MG/DL 110-129 MG/DL HIGH RISK: >160 MG/DL >130 MG/DL *CHILDREN AND ADOLESCENTS REPRESENTS INDIVIDUALA AGED 2-19 YEARS EXCLUSIVE. Chol 159 mg/dL 0-200 [facility] ([facility] NORMAL RANGES Age WBC RBC HGB HCT MCV PLT Adult M 4.1-10.9 4.20-6.30 12.0-18.0 37.0-51.0 80-97 140-440 Adult F 4.1-10.9 4.04-5.48 12.0-18.0 37.0-51.0 80-97 140-440 0 -1 Yr 5.0-20.0 3.9-5.9 15-18 MV: 44 MV: 91 MV: 277 2-9 Yr. 6.0-17.0 3.8-5.4 11-13 MV: 37 MV: 78 MV: 300 10 Yrs. 5.0-13.0 3.8-5.4 12-15 MV: 39 MV: 80 MV: 250 NOTE: * FOR ADULT BLACK MALES AND FEMALES, NORMAL WBC IS 2.9-7.7 K/ML * FOR ADULT BLACK MALES AND FEMALES, NORMAL RBC,HGB, AND HCT IS 5% LESS SOURCE FOR DATA: travelmob 1800 OPERATION MANUAL( AUTOMATED BLOOD COUNTS AND DIFF.) APPENDIX B-3 CHRONIC KIDNEY DISEASE STAGING PER NKF: MALE GFR INTERPRETATION: 20-49 YRS: >60 mL/min Normal 50-59 YRS: >56 mL/min Normal 60-69 YRS: >49 mL/min Normal 70-79 YRS: >42 mL/min Normal 80 and above >35 mL/min Normal FEMALE GRF INTERPRETATION: 20-39 YRS: >60 mL/min Normal 40-49 YRS: >58 mL/min Normal 50-59 YRS: >51 mL/min Normal 60-69 YRS: >45 mL/min Normal 70-79 YRS: >39 mL/min Normal 80 and above >32 mL/min NormalCLASSIFICATION CHOLESTEROL FOR ADULTS CHILDREN/ADOLESCENTS* DESIRABLE: <200 MG/DL <170 MG/DL BORDER-LINE HIGH RISK: 200-239 MG/DL 170-199 MG/DL HIGH RISK: >240 MG/DL >200 MG/DL CLASS. FOR PRIMARY LDL CHOL PREVENTION: LDL CHOL-CHILD/ADOLESCENTS* DESIRABLE: <130 MG/DL <110 MG/DL BORDERLINE-HIGH RISK: 130- 159 MG/DL 110-129 MG/DL HIGH RISK: >160 MG/DL >130 MG/DL *CHILDREN AND ADOLESCENTS REPRESENTS INDIVIDUALA AGED 2-19 YEARS EXCLUSIVE. Cholesterol in HDL [Mass/volume] in Serum or Plasma 60 mg/dL 45-65 [facility] ([facility] NORMAL RANGES Age WBC RBC HGB HCT MCV PLT Adult M 4.1-10.9 4.20-6.30 12.0-18.0 37.0-51.0 80-97 140-440 Adult F 4.1-10.9 4.04-5.48 12.0-18.0 37.0-51.0 80-97 140-440 0 -1 Yr 5.0-20.0 3.9-5.9 15-18 MV: 44 MV: 91 MV: 277 2-9 Yr. 6.0-17.0 3.8-5.4 11-13 MV: 37 MV: 78 MV: 300 10 Yrs. 5.0-13.0 3.8-5.4 12-15 MV: 39 MV: 80 MV: 250 NOTE: * FOR ADULT BLACK MALES AND FEMALES, NORMAL WBC IS 2.9-7.7 K/ML * FOR ADULT BLACK MALES AND FEMALES, NORMAL RBC,HGB, AND HCT IS 5% LESS SOURCE FOR DATA: travelmob 1800 OPERATION MANUAL( AUTOMATED BLOOD COUNTS AND DIFF.) APPENDIX B-3 CHRONIC KIDNEY DISEASE STAGING PER NKF: MALE GFR INTERPRETATION: 20-49 YRS: >60 mL/min Normal 50-59 YRS: >56 mL/min Normal 60-69 YRS: >49 mL/min Normal 70-79 YRS: >42 mL/min Normal 80 and above >35 mL/min Normal FEMALE GRF INTERPRETATION: 20-39 YRS: >60 mL/min Normal 40-49 YRS: >58 mL/min Normal 50-59 YRS: >51 mL/min Normal 60-69 YRS: >45 mL/min Normal 70-79 YRS: >39 mL/min Normal 80 and above >32 mL/min NormalCLASSIFICATION CHOLESTEROL FOR ADULTS CHILDREN/ADOLESCENTS* DESIRABLE: <200 MG/DL <170 MG/DL BORDER-LINE HIGH RISK: 200-239 MG/DL 170-199 MG/DL HIGH RISK: >240 MG/DL >200 MG/DL CLASS. FOR PRIMARY LDL CHOL PREVENTION: LDL CHOL-CHILD/ADOLESCENTS* DESIRABLE: <130 MG/DL <110 MG/DL BORDERLINE-HIGH RISK: 130- 159 MG/DL 110-129 MG/DL HIGH RISK: >160 MG/DL >130 MG/DL *CHILDREN AND ADOLESCENTS REPRESENTS INDIVIDUALA AGED 2-19 YEARS EXCLUSIVE. LDL_C 84 Calc 75-129 [facility] ([facility] NORMAL RANGES Age WBC RBC HGB HCT MCV PLT Adult M 4.1-10.9 4.20-6.30 12.0-18.0 37.0-51.0 80-97 140-440 Adult F 4.1-10.9 4.04-5.48 12.0-18.0 37.0-51.0 80-97 140-440 0 -1 Yr 5.0-20.0 3.9-5.9 15-18 MV: 44 MV: 91 MV: 277 2-9 Yr. 6.0-17.0 3.8-5.4 11-13 MV: 37 MV: 78 MV: 300 10 Yrs. 5.0-13.0 3.8-5.4 12-15 MV: 39 MV: 80 MV: 250 NOTE: * FOR ADULT BLACK MALES AND FEMALES, NORMAL WBC IS 2.9-7.7 K/ML * FOR ADULT BLACK MALES AND FEMALES, NORMAL RBC,HGB, AND HCT IS 5% LESS SOURCE FOR DATA: travelmob 1800 OPERATION MANUAL( AUTOMATED BLOOD COUNTS AND DIFF.) APPENDIX B-3 CHRONIC KIDNEY DISEASE STAGING PER NKF: MALE GFR INTERPRETATION: 20-49 YRS: >60 mL/min Normal 50-59 YRS: >56 mL/min Normal 60-69 YRS: >49 mL/min Normal 70-79 YRS: >42 mL/min Normal 80 and above >35 mL/min Normal FEMALE GRF INTERPRETATION: 20-39 YRS: >60 mL/min Normal 40-49 YRS: >58 mL/min Normal 50-59 YRS: >51 mL/min Normal 60-69 YRS: >45 mL/min Normal 70-79 YRS: >39 mL/min Normal 80 and above >32 mL/min NormalCLASSIFICATION CHOLESTEROL FOR ADULTS CHILDREN/ADOLESCENTS* DESIRABLE: <200 MG/DL <170 MG/DL BORDER-LINE HIGH RISK: 200-239 MG/DL 170-199 MG/DL HIGH RISK: >240 MG/DL >200 MG/DL CLASS. FOR PRIMARY LDL CHOL PREVENTION: LDL CHOL-CHILD/ADOLESCENTS* DESIRABLE: <130 MG/DL <110 MG/DL BORDERLINE-HIGH RISK: 130- 159 MG/DL 110-129 MG/DL HIGH RISK: >160 MG/DL >130 MG/DL *CHILDREN AND ADOLESCENTS REPRESENTS INDIVIDUALA AGED 2-19 YEARS EXCLUSIVE. Cho/HDL Ratio 2.6 CALC [facility] ([facility] NORMAL RANGES Age WBC RBC HGB HCT MCV PLT Adult M 4.1-10.9 4.20-6.30 12.0-18.0 37.0-51.0 80-97 140-440 Adult F 4.1-10.9 4.04-5.48 12.0-18.0 37.0-51.0 80-97 140-440 0 -1 Yr 5.0-20.0 3.9-5.9 15-18 MV: 44 MV: 91 MV: 277 2-9 Yr. 6.0-17.0 3.8-5.4 11-13 MV: 37 MV: 78 MV: 300 10 Yrs. 5.0-13.0 3.8-5.4 12-15 MV: 39 MV: 80 MV: 250 NOTE: * FOR ADULT BLACK MALES AND FEMALES, NORMAL WBC IS 2.9-7.7 K/ML * FOR ADULT BLACK MALES AND FEMALES, NORMAL RBC,HGB, AND HCT IS 5% LESS SOURCE FOR DATA: travelmob 1800 OPERATION MANUAL( AUTOMATED BLOOD COUNTS AND DIFF.) APPENDIX B-3 CHRONIC KIDNEY DISEASE STAGING PER NKF: MALE GFR INTERPRETATION: 20-49 YRS: >60 mL/min Normal 50-59 YRS: >56 mL/min Normal 60-69 YRS: >49 mL/min Normal 70-79 YRS: >42 mL/min Normal 80 and above >35 mL/min Normal FEMALE GRF INTERPRETATION: 20-39 YRS: >60 mL/min Normal 40-49 YRS: >58 mL/min Normal 50-59 YRS: >51 mL/min Normal 60-69 YRS: >45 mL/min Normal 70-79 YRS: >39 mL/min Normal 80 and above >32 mL/min NormalCLASSIFICATION CHOLESTEROL FOR ADULTS CHILDREN/ADOLESCENTS* DESIRABLE: <200 MG/DL <170 MG/DL BORDER-LINE HIGH RISK: 200-239 MG/DL 170-199 MG/DL HIGH RISK: >240 MG/DL >200 MG/DL CLASS. FOR PRIMARY LDL CHOL PREVENTION: LDL CHOL-CHILD/ADOLESCENTS* DESIRABLE: <130 MG/DL <110 MG/DL BORDERLINE-HIGH RISK: 130- 159 MG/DL 110-129 MG/DL HIGH RISK: >160 MG/DL >130 MG/DL *CHILDREN AND ADOLESCENTS REPRESENTS INDIVIDUALA AGED 2-19 YEARS EXCLUSIVE. ID Date Data Source [id number] 07/05/2020 10:47:00 AM EST [facility] ([facility] Name Value Range Interpretation Code Description Data Arielle rce(s) Supporting Document(s) Glu 105 mg/dL 70-110 [facility] NORMAL RANGES Age WBC RBC HGB HCT MCV PLT Adult M 4.1-10.9 4.20-6.30 12.0-18.0 37.0-51.0 80-97 140-440 Adult F 4.1-10.9 4.04-5.48 12.0-18.0 37.0-51.0 80-97 140-440 0 -1 Yr 5.0-20.0 3.9-5.9 15-18 MV: 44 MV: 91 MV: 277 2-9 Yr. 6.0-17.0 3.8-5.4 11-13 MV: 37 MV: 78 MV: 300 10 Yrs. 5.0-13.0 3.8-5.4 12-15 MV: 39 MV: 80 MV: 250 NOTE: * FOR ADULT BLACK MALES AND FEMALES, NORMAL WBC IS 2.9-7.7 K/ML * FOR ADULT BLACK MALES AND FEMALES, NORMAL RBC,HGB, AND HCT IS 5% LESS SOURCE FOR DATA: [employer]mob 1800 OPERATION MANUAL( AUTOMATED BLOOD COUNTS AND DIFF.) APPENDIX B-3 CHRONIC KIDNEY DISEASE STAGING PER NKF: MALE GFR INTERPRETATION: 20-49 YRS: >60 mL/min Normal 50-59 YRS: >56 mL/min Normal 60-69 YRS: >49 mL/min Normal 70-79 YRS: >42 mL/min Normal 80 and above >35 mL/min Normal FEMALE GRF INTERPRETATION: 20-39 YRS: >60 mL/min Normal 40-49 YRS: >58 mL/min Normal 50-59 YRS: >51 mL/min Normal 60-69 YRS: >45 mL/min Normal 70-79 YRS: >39 mL/min Normal 80 and above >32 mL/min NormalCLASSIFICATION CHOLESTEROL FOR ADULTS CHILDREN/ADOLESCENTS* DESIRABLE: <200 MG/DL <170 MG/DL BORDER-LINE HIGH RISK: 200-239 MG/DL 170-199 MG/DL HIGH RISK: >240 MG/DL >200 MG/DL CLASS. FOR PRIMARY LDL CHOL PREVENTION: LDL CHOL-CHILD/ADOLESCENTS* DESIRABLE: <130 MG/DL <110 MG/DL BORDERLINE-HIGH RISK: 130- 159 MG/DL 110-129 MG/DL HIGH RISK: >160 MG/DL >130 MG/DL *CHILDREN AND ADOLESCENTS REPRESENTS INDIVIDUALA AGED 2-19 YEARS EXCLUSIVE. BUN 22 mg/dL 8-23 [facility] ([facility] NORMAL RANGES Age WBC RBC HGB HCT MCV PLT Adult M 4.1-10.9 4.20-6.30 12.0-18.0 37.0-51.0 80-97 140-440 Adult F 4.1-10.9 4.04-5.48 12.0-18.0 37.0-51.0 80-97 140-440 0 -1 Yr 5.0-20.0 3.9-5.9 15-18 MV: 44 MV: 91 MV: 277 2-9 Yr. 6.0-17.0 3.8-5.4 11-13 MV: 37 MV: 78 MV: 300 10 Yrs. 5.0-13.0 3.8-5.4 12-15 MV: 39 MV: 80 MV: 250 NOTE: * FOR ADULT BLACK MALES AND FEMALES, NORMAL WBC IS 2.9-7.7 K/ML * FOR ADULT BLACK MALES AND FEMALES, NORMAL RBC,HGB, AND HCT IS 5% LESS SOURCE FOR DATA: travelmob 1800 OPERATION MANUAL( AUTOMATED BLOOD COUNTS AND DIFF.) APPENDIX B-3 CHRONIC KIDNEY DISEASE STAGING PER NKF: MALE GFR INTERPRETATION: 20-49 YRS: >60 mL/min Normal 50-59 YRS: >56 mL/min Normal 60-69 YRS: >49 mL/min Normal 70-79 YRS: >42 mL/min Normal 80 and above >35 mL/min Normal FEMALE GRF INTERPRETATION: 20-39 YRS: >60 mL/min Normal 40-49 YRS: >58 mL/min Normal 50-59 YRS: >51 mL/min Normal 60-69 YRS: >45 mL/min Normal 70-79 YRS: >39 mL/min Normal 80 and above >32 mL/min NormalCLASSIFICATION CHOLESTEROL FOR ADULTS CHILDREN/ADOLESCENTS* DESIRABLE: <200 MG/DL <170 MG/DL BORDER-LINE HIGH RISK: 200-239 MG/DL 170-199 MG/DL HIGH RISK: >240 MG/DL >200 MG/DL CLASS. FOR PRIMARY LDL CHOL PREVENTION: LDL CHOL-CHILD/ADOLESCENTS* DESIRABLE: <130 MG/DL <110 MG/DL BORDERLINE-HIGH RISK: 130- 159 MG/DL 110-129 MG/DL HIGH RISK: >160 MG/DL >130 MG/DL *CHILDREN AND ADOLESCENTS REPRESENTS INDIVIDUALA AGED 2-19 YEARS EXCLUSIVE. BUN/Creatinine Ratio 29.3 [facility] NORMAL RANGES Age WBC RBC HGB HCT MCV PLT Adult M 4.1-10.9 4.20-6.30 12.0-18.0 37.0-51.0 80-97 140-440 Adult F 4.1-10.9 4.04-5.48 12.0-18.0 37.0-51.0 80-97 140-440 0 -1 Yr 5.0-20.0 3.9-5.9 15-18 MV: 44 MV: 91 MV: 277 2-9 Yr. 6.0-17.0 3.8-5.4 11-13 MV: 37 MV: 78 MV: 300 10 Yrs. 5.0-13.0 3.8-5.4 12-15 MV: 39 MV: 80 MV: 250 NOTE: * FOR ADULT BLACK MALES AND FEMALES, NORMAL WBC IS 2.9-7.7 K/ML * FOR ADULT BLACK MALES AND FEMALES, NORMAL RBC,HGB, AND HCT IS 5% LESS SOURCE FOR DATA: BitX DYN 1800 OPERATION MANUAL( AUTOMATED BLOOD COUNTS AND DIFF.) APPENDIX B-3 CHRONIC KIDNEY DISEASE STAGING PER NKF: MALE GFR INTERPRETATION: 20-49 YRS: >60 mL/min Normal 50-59 YRS: >56 mL/min Normal 60-69 YRS: >49 mL/min Normal 70-79 YRS: >42 mL/min Normal 80 and above >35 mL/min Normal FEMALE GRF INTERPRETATION: 20-39 YRS: >60 mL/min Normal 40-49 YRS: >58 mL/min Normal 50-59 YRS: >51 mL/min Normal 60-69 YRS: >45 mL/min Normal 70-79 YRS: >39 mL/min Normal 80 and above >32 mL/min NormalCLASSIFICATION CHOLESTEROL FOR ADULTS CHILDREN/ADOLESCENTS* DESIRABLE: <200 MG/DL <170 MG/DL BORDER-LINE HIGH RISK: 200-239 MG/DL 170-199 MG/DL HIGH RISK: >240 MG/DL >200 MG/DL CLASS. FOR PRIMARY LDL CHOL PREVENTION: LDL CHOL-CHILD/ADOLESCENTS* DESIRABLE: <130 MG/DL <110 MG/DL BORDERLINE-HIGH RISK: 130- 159 MG/DL 110-129 MG/DL HIGH RISK: >160 MG/DL >130 MG/DL *CHILDREN AND ADOLESCENTS REPRESENTS INDIVIDUALA AGED 2-19 YEARS EXCLUSIVE. Creat 0.7 mg/dL 0.5-1.0 [facility] ([facility] NORMAL RANGES Age WBC RBC HGB HCT MCV PLT Adult M 4.1-10.9 4.20-6.30 12.0-18.0 37.0-51.0 80-97 140-440 Adult F 4.1-10.9 4.04-5.48 12.0-18.0 37.0-51.0 80-97 140-440 0 -1 Yr 5.0-20.0 3.9-5.9 15-18 MV: 44 MV: 91 MV: 277 2-9 Yr. 6.0-17.0 3.8-5.4 11-13 MV: 37 MV: 78 MV: 300 10 Yrs. 5.0-13.0 3.8-5.4 12-15 MV: 39 MV: 80 MV: 250 NOTE: * FOR ADULT BLACK MALES AND FEMALES, NORMAL WBC IS 2.9-7.7 K/ML * FOR ADULT BLACK MALES AND FEMALES, NORMAL RBC,HGB, AND HCT IS 5% LESS SOURCE FOR DATA: travelmob 1800 OPERATION MANUAL( AUTOMATED BLOOD COUNTS AND DIFF.) APPENDIX B-3 CHRONIC KIDNEY DISEASE STAGING PER NKF: MALE GFR INTERPRETATION: 20-49 YRS: >60 mL/min Normal 50-59 YRS: >56 mL/min Normal 60-69 YRS: >49 mL/min Normal 70-79 YRS: >42 mL/min Normal 80 and above >35 mL/min Normal FEMALE GRF INTERPRETATION: 20-39 YRS: >60 mL/min Normal 40-49 YRS: >58 mL/min Normal 50-59 YRS: >51 mL/min Normal 60-69 YRS: >45 mL/min Normal 70-79 YRS: >39 mL/min Normal 80 and above >32 mL/min NormalCLASSIFICATION CHOLESTEROL FOR ADULTS CHILDREN/ADOLESCENTS* DESIRABLE: <200 MG/DL <170 MG/DL BORDER-LINE HIGH RISK: 200-239 MG/DL 170-199 MG/DL HIGH RISK: >240 MG/DL >200 MG/DL CLASS. FOR PRIMARY LDL CHOL PREVENTION: LDL CHOL-CHILD/ADOLESCENTS* DESIRABLE: <130 MG/DL <110 MG/DL BORDERLINE-HIGH RISK: 130- 159 MG/DL 110-129 MG/DL HIGH RISK: >160 MG/DL >130 MG/DL *CHILDREN AND ADOLESCENTS REPRESENTS INDIVIDUALA AGED 2-19 YEARS EXCLUSIVE. Na 137 mmol/L 136-145 [facility] ([facility] NORMAL RANGES Age WBC RBC HGB HCT MCV PLT Adult M 4.1-10.9 4.20-6.30 12.0-18.0 37.0-51.0 80-97 140-440 Adult F 4.1-10.9 4.04-5.48 12.0-18.0 37.0-51.0 80-97 140-440 0 -1 Yr 5.0-20.0 3.9-5.9 15-18 MV: 44 MV: 91 MV: 277 2-9 Yr. 6.0-17.0 3.8-5.4 11-13 MV: 37 MV: 78 MV: 300 10 Yrs. 5.0-13.0 3.8-5.4 12-15 MV: 39 MV: 80 MV: 250 NOTE: * FOR ADULT BLACK MALES AND FEMALES, NORMAL WBC IS 2.9-7.7 K/ML * FOR ADULT BLACK MALES AND FEMALES, NORMAL RBC,HGB, AND HCT IS 5% LESS SOURCE FOR DATA: travelmob 1800 OPERATION MANUAL( AUTOMATED BLOOD COUNTS AND DIFF.) APPENDIX B-3 CHRONIC KIDNEY DISEASE STAGING PER NKF: MALE GFR INTERPRETATION: 20-49 YRS: >60 mL/min Normal 50-59 YRS: >56 mL/min Normal 60-69 YRS: >49 mL/min Normal 70-79 YRS: >42 mL/min Normal 80 and above >35 mL/min Normal FEMALE GRF INTERPRETATION: 20-39 YRS: >60 mL/min Normal 40-49 YRS: >58 mL/min Normal 50-59 YRS: >51 mL/min Normal 60-69 YRS: >45 mL/min Normal 70-79 YRS: >39 mL/min Normal 80 and above >32 mL/min NormalCLASSIFICATION CHOLESTEROL FOR ADULTS CHILDREN/ADOLESCENTS* DESIRABLE: <200 MG/DL <170 MG/DL BORDER-LINE HIGH RISK: 200-239 MG/DL 170-199 MG/DL HIGH RISK: >240 MG/DL >200 MG/DL CLASS. FOR PRIMARY LDL CHOL PREVENTION: LDL CHOL-CHILD/ADOLESCENTS* DESIRABLE: <130 MG/DL <110 MG/DL BORDERLINE-HIGH RISK: 130- 159 MG/DL 110-129 MG/DL HIGH RISK: >160 MG/DL >130 MG/DL *CHILDREN AND ADOLESCENTS REPRESENTS INDIVIDUALA AGED 2-19 YEARS EXCLUSIVE. CL 101.3 mmol/L 98.0-107.0 [facility] NORMAL RANGES Age WBC RBC HGB HCT MCV PLT Adult M 4.1-10.9 4.20-6.30 12.0-18.0 37.0-51.0 80-97 140-440 Adult F 4.1-10.9 4.04-5.48 12.0-18.0 37.0-51.0 80-97 140-440 0 -1 Yr 5.0-20.0 3.9-5.9 15-18 MV: 44 MV: 91 MV: 277 2-9 Yr. 6.0-17.0 3.8-5.4 11-13 MV: 37 MV: 78 MV: 300 10 Yrs. 5.0-13.0 3.8-5.4 12-15 MV: 39 MV: 80 MV: 250 NOTE: * FOR ADULT BLACK MALES AND FEMALES, NORMAL WBC IS 2.9-7.7 K/ML * FOR ADULT BLACK MALES AND FEMALES, NORMAL RBC,HGB, AND HCT IS 5% LESS SOURCE FOR DATA: travelmob 1800 OPERATION MANUAL( AUTOMATED BLOOD COUNTS AND DIFF.) APPENDIX B-3 CHRONIC KIDNEY DISEASE STAGING PER NKF: MALE GFR INTERPRETATION: 20-49 YRS: >60 mL/min Normal 50-59 YRS: >56 mL/min Normal 60-69 YRS: >49 mL/min Normal 70-79 YRS: >42 mL/min Normal 80 and above >35 mL/min Normal FEMALE GRF INTERPRETATION: 20-39 YRS: >60 mL/min Normal 40-49 YRS: >58 mL/min Normal 50-59 YRS: >51 mL/min Normal 60-69 YRS: >45 mL/min Normal 70-79 YRS: >39 mL/min Normal 80 and above >32 mL/min NormalCLASSIFICATION CHOLESTEROL FOR ADULTS CHILDREN/ADOLESCENTS* DESIRABLE: <200 MG/DL <170 MG/DL BORDER-LINE HIGH RISK: 200-239 MG/DL 170-199 MG/DL HIGH RISK: >240 MG/DL >200 MG/DL CLASS. FOR PRIMARY LDL CHOL PREVENTION: LDL CHOL-CHILD/ADOLESCENTS* DESIRABLE: <130 MG/DL <110 MG/DL BORDERLINE-HIGH RISK: 130- 159 MG/DL 110-129 MG/DL HIGH RISK: >160 MG/DL >130 MG/DL *CHILDREN AND ADOLESCENTS REPRESENTS INDIVIDUALA AGED 2-19 YEARS EXCLUSIVE. K 4.2 mmol/L 3.5-5.1 [facility] ([facility] NORMAL RANGES Age WBC RBC HGB HCT MCV PLT Adult M 4.1-10.9 4.20-6.30 12.0-18.0 37.0-51.0 80-97 140-440 Adult F 4.1-10.9 4.04-5.48 12.0-18.0 37.0-51.0 80-97 140-440 0 -1 Yr 5.0-20.0 3.9-5.9 15-18 MV: 44 MV: 91 MV: 277 2-9 Yr. 6.0-17.0 3.8-5.4 11-13 MV: 37 MV: 78 MV: 300 10 Yrs. 5.0-13.0 3.8-5.4 12-15 MV: 39 MV: 80 MV: 250 NOTE: * FOR ADULT BLACK MALES AND FEMALES, NORMAL WBC IS 2.9-7.7 K/ML * FOR ADULT BLACK MALES AND FEMALES, NORMAL RBC,HGB, AND HCT IS 5% LESS SOURCE FOR DATA: travelmob 1800 OPERATION MANUAL( AUTOMATED BLOOD COUNTS AND DIFF.) APPENDIX B-3 CHRONIC KIDNEY DISEASE STAGING PER NKF: MALE GFR INTERPRETATION: 20-49 YRS: >60 mL/min Normal 50-59 YRS: >56 mL/min Normal 60-69 YRS: >49 mL/min Normal 70-79 YRS: >42 mL/min Normal 80 and above >35 mL/min Normal FEMALE GRF INTERPRETATION: 20-39 YRS: >60 mL/min Normal 40-49 YRS: >58 mL/min Normal 50-59 YRS: >51 mL/min Normal 60-69 YRS: >45 mL/min Normal 70-79 YRS: >39 mL/min Normal 80 and above >32 mL/min NormalCLASSIFICATION CHOLESTEROL FOR ADULTS CHILDREN/ADOLESCENTS* DESIRABLE: <200 MG/DL <170 MG/DL BORDER-LINE HIGH RISK: 200-239 MG/DL 170-199 MG/DL HIGH RISK: >240 MG/DL >200 MG/DL CLASS. FOR PRIMARY LDL CHOL PREVENTION: LDL CHOL-CHILD/ADOLESCENTS* DESIRABLE: <130 MG/DL <110 MG/DL BORDERLINE-HIGH RISK: 130- 159 MG/DL 110-129 MG/DL HIGH RISK: >160 MG/DL >130 MG/DL *CHILDREN AND ADOLESCENTS REPRESENTS INDIVIDUALA AGED 2-19 YEARS EXCLUSIVE. CA 9.7 mg/dL 8.6-10.2 [facility] NORMAL RANGES Age WBC RBC HGB HCT MCV PLT Adult M 4.1-10.9 4.20-6.30 12.0-18.0 37.0-51.0 80-97 140-440 Adult F 4.1-10.9 4.04-5.48 12.0-18.0 37.0-51.0 80-97 140-440 0 -1 Yr 5.0-20.0 3.9-5.9 15-18 MV: 44 MV: 91 MV: 277 2-9 Yr. 6.0-17.0 3.8-5.4 11-13 MV: 37 MV: 78 MV: 300 10 Yrs. 5.0-13.0 3.8-5.4 12-15 MV: 39 MV: 80 MV: 250 NOTE: * FOR ADULT BLACK MALES AND FEMALES, NORMAL WBC IS 2.9-7.7 K/ML * FOR ADULT BLACK MALES AND FEMALES, NORMAL RBC,HGB, AND HCT IS 5% LESS SOURCE FOR DATA: travelmob 1800 OPERATION MANUAL( AUTOMATED BLOOD COUNTS AND DIFF.) APPENDIX B-3 CHRONIC KIDNEY DISEASE STAGING PER NKF: MALE GFR INTERPRETATION: 20-49 YRS: >60 mL/min Normal 50-59 YRS: >56 mL/min Normal 60-69 YRS: >49 mL/min Normal 70-79 YRS: >42 mL/min Normal 80 and above >35 mL/min Normal FEMALE GRF INTERPRETATION: 20-39 YRS: >60 mL/min Normal 40-49 YRS: >58 mL/min Normal 50-59 YRS: >51 mL/min Normal 60-69 YRS: >45 mL/min Normal 70-79 YRS: >39 mL/min Normal 80 and above >32 mL/min NormalCLASSIFICATION CHOLESTEROL FOR ADULTS CHILDREN/ADOLESCENTS* DESIRABLE: <200 MG/DL <170 MG/DL BORDER-LINE HIGH RISK: 200-239 MG/DL 170-199 MG/DL HIGH RISK: >240 MG/DL >200 MG/DL CLASS. FOR PRIMARY LDL CHOL PREVENTION: LDL CHOL-CHILD/ADOLESCENTS* DESIRABLE: <130 MG/DL <110 MG/DL BORDERLINE-HIGH RISK: 130- 159 MG/DL 110-129 MG/DL HIGH RISK: >160 MG/DL >130 MG/DL *CHILDREN AND ADOLESCENTS REPRESENTS INDIVIDUALA AGED 2-19 YEARS EXCLUSIVE. Co2 26.2 mmol/L 22.0-29.0 [facility] ([facility] NORMAL RANGES Age WBC RBC HGB HCT MCV PLT Adult M 4.1-10.9 4.20-6.30 12.0-18.0 37.0-51.0 80-97 140-440 Adult F 4.1-10.9 4.04-5.48 12.0-18.0 37.0-51.0 80-97 140-440 0 -1 Yr 5.0-20.0 3.9-5.9 15-18 MV: 44 MV: 91 MV: 277 2-9 Yr. 6.0-17.0 3.8-5.4 11-13 MV: 37 MV: 78 MV: 300 10 Yrs. 5.0-13.0 3.8-5.4 12-15 MV: 39 MV: 80 MV: 250 NOTE: * FOR ADULT BLACK MALES AND FEMALES, NORMAL WBC IS 2.9-7.7 K/ML * FOR ADULT BLACK MALES AND FEMALES, NORMAL RBC,HGB, AND HCT IS 5% LESS SOURCE FOR DATA: travelmob 1800 OPERATION MANUAL( AUTOMATED BLOOD COUNTS AND DIFF.) APPENDIX B-3 CHRONIC KIDNEY DISEASE STAGING PER NKF: MALE GFR INTERPRETATION: 20-49 YRS: >60 mL/min Normal 50-59 YRS: >56 mL/min Normal 60-69 YRS: >49 mL/min Normal 70-79 YRS: >42 mL/min Normal 80 and above >35 mL/min Normal FEMALE GRF INTERPRETATION: 20-39 YRS: >60 mL/min Normal 40-49 YRS: >58 mL/min Normal 50-59 YRS: >51 mL/min Normal 60-69 YRS: >45 mL/min Normal 70-79 YRS: >39 mL/min Normal 80 and above >32 mL/min NormalCLASSIFICATION CHOLESTEROL FOR ADULTS CHILDREN/ADOLESCENTS* DESIRABLE: <200 MG/DL <170 MG/DL BORDER-LINE HIGH RISK: 200-239 MG/DL 170-199 MG/DL HIGH RISK: >240 MG/DL >200 MG/DL CLASS. FOR PRIMARY LDL CHOL PREVENTION: LDL CHOL-CHILD/ADOLESCENTS* DESIRABLE: <130 MG/DL <110 MG/DL BORDERLINE-HIGH RISK: 130- 159 MG/DL 110-129 MG/DL HIGH RISK: >160 MG/DL >130 MG/DL *CHILDREN AND ADOLESCENTS REPRESENTS INDIVIDUALA AGED 2-19 YEARS EXCLUSIVE. TP 6.7 g/dL 6.6-8.7 [facility] ([facility] NORMAL RANGES Age WBC RBC HGB HCT MCV PLT Adult M 4.1-10.9 4.20-6.30 12.0-18.0 37.0-51.0 80-97 140-440 Adult F 4.1-10.9 4.04-5.48 12.0-18.0 37.0-51.0 80-97 140-440 0 -1 Yr 5.0-20.0 3.9-5.9 15-18 MV: 44 MV: 91 MV: 277 2-9 Yr. 6.0-17.0 3.8-5.4 11-13 MV: 37 MV: 78 MV: 300 10 Yrs. 5.0-13.0 3.8-5.4 12-15 MV: 39 MV: 80 MV: 250 NOTE: * FOR ADULT BLACK MALES AND FEMALES, NORMAL WBC IS 2.9-7.7 K/ML * FOR ADULT BLACK MALES AND FEMALES, NORMAL RBC,HGB, AND HCT IS 5% LESS SOURCE FOR DATA: travelmob 1800 OPERATION MANUAL( AUTOMATED BLOOD COUNTS AND DIFF.) APPENDIX B-3 CHRONIC KIDNEY DISEASE STAGING PER NKF: MALE GFR INTERPRETATION: 20-49 YRS: >60 mL/min Normal 50-59 YRS: >56 mL/min Normal 60-69 YRS: >49 mL/min Normal 70-79 YRS: >42 mL/min Normal 80 and above >35 mL/min Normal FEMALE GRF INTERPRETATION: 20-39 YRS: >60 mL/min Normal 40-49 YRS: >58 mL/min Normal 50-59 YRS: >51 mL/min Normal 60-69 YRS: >45 mL/min Normal 70-79 YRS: >39 mL/min Normal 80 and above >32 mL/min NormalCLASSIFICATION CHOLESTEROL FOR ADULTS CHILDREN/ADOLESCENTS* DESIRABLE: <200 MG/DL <170 MG/DL BORDER-LINE HIGH RISK: 200-239 MG/DL 170-199 MG/DL HIGH RISK: >240 MG/DL >200 MG/DL CLASS. FOR PRIMARY LDL CHOL PREVENTION: LDL CHOL-CHILD/ADOLESCENTS* DESIRABLE: <130 MG/DL <110 MG/DL BORDERLINE-HIGH RISK: 130- 159 MG/DL 110-129 MG/DL HIGH RISK: >160 MG/DL >130 MG/DL *CHILDREN AND ADOLESCENTS REPRESENTS INDIVIDUALA AGED 2-19 YEARS EXCLUSIVE. A/G Ratio 1.9 [facility]C [facility] NORMAL RANGES Age WBC RBC HGB HCT MCV PLT Adult M 4.1-10.9 4.20-6.30 12.0-18.0 37.0-51.0 80-97 140-440 Adult F 4.1-10.9 4.04-5.48 12.0-18.0 37.0-51.0 80-97 140-440 0 -1 Yr 5.0-20.0 3.9-5.9 15-18 MV: 44 MV: 91 MV: 277 2-9 Yr. 6.0-17.0 3.8-5.4 11-13 MV: 37 MV: 78 MV: 300 10 Yrs. 5.0-13.0 3.8-5.4 12-15 MV: 39 MV: 80 MV: 250 NOTE: * FOR ADULT BLACK MALES AND FEMALES, NORMAL WBC IS 2.9-7.7 K/ML * FOR ADULT BLACK MALES AND FEMALES, NORMAL RBC,HGB, AND HCT IS 5% LESS SOURCE FOR DATA: travelmob 1800 OPERATION MANUAL( AUTOMATED BLOOD COUNTS AND DIFF.) APPENDIX B-3 CHRONIC KIDNEY DISEASE STAGING PER NKF: MALE GFR INTERPRETATION: 20-49 YRS: >60 mL/min Normal 50-59 YRS: >56 mL/min Normal 60-69 YRS: >49 mL/min Normal 70-79 YRS: >42 mL/min Normal 80 and above >35 mL/min Normal FEMALE GRF INTERPRETATION: 20-39 YRS: >60 mL/min Normal 40-49 YRS: >58 mL/min Normal 50-59 YRS: >51 mL/min Normal 60-69 YRS: >45 mL/min Normal 70-79 YRS: >39 mL/min Normal 80 and above >32 mL/min NormalCLASSIFICATION CHOLESTEROL FOR ADULTS CHILDREN/ADOLESCENTS* DESIRABLE: <200 MG/DL <170 MG/DL BORDER-LINE HIGH RISK: 200-239 MG/DL 170-199 MG/DL HIGH RISK: >240 MG/DL >200 MG/DL CLASS. FOR PRIMARY LDL CHOL PREVENTION: LDL CHOL-CHILD/ADOLESCENTS* DESIRABLE: <130 MG/DL <110 MG/DL BORDERLINE-HIGH RISK: 130- 159 MG/DL 110-129 MG/DL HIGH RISK: >160 MG/DL >130 MG/DL *CHILDREN AND ADOLESCENTS REPRESENTS INDIVIDUALA AGED 2-19 YEARS EXCLUSIVE. Alb 4.4 g/dL 3.4-4.8 [facility] NORMAL RANGES Age WBC RBC HGB HCT MCV PLT Adult M 4.1-10.9 4.20-6.30 12.0-18.0 37.0-51.0 80-97 140-440 Adult F 4.1-10.9 4.04-5.48 12.0-18.0 37.0-51.0 80-97 140-440 0 -1 Yr 5.0-20.0 3.9-5.9 15-18 MV: 44 MV: 91 MV: 277 2-9 Yr. 6.0-17.0 3.8-5.4 11-13 MV: 37 MV: 78 MV: 300 10 Yrs. 5.0-13.0 3.8-5.4 12-15 MV: 39 MV: 80 MV: 250 NOTE: * FOR ADULT BLACK MALES AND FEMALES, NORMAL WBC IS 2.9-7.7 K/ML * FOR ADULT BLACK MALES AND FEMALES, NORMAL RBC,HGB, AND HCT IS 5% LESS SOURCE FOR DATA: travelmob 1800 OPERATION MANUAL( AUTOMATED BLOOD COUNTS AND DIFF.) APPENDIX B-3 CHRONIC KIDNEY DISEASE STAGING PER NKF: MALE GFR INTERPRETATION: 20-49 YRS: >60 mL/min Normal 50-59 YRS: >56 mL/min Normal 60-69 YRS: >49 mL/min Normal 70-79 YRS: >42 mL/min Normal 80 and above >35 mL/min Normal FEMALE GRF INTERPRETATION: 20-39 YRS: >60 mL/min Normal 40-49 YRS: >58 mL/min Normal 50-59 YRS: >51 mL/min Normal 60-69 YRS: >45 mL/min Normal 70-79 YRS: >39 mL/min Normal 80 and above >32 mL/min NormalCLASSIFICATION CHOLESTEROL FOR ADULTS CHILDREN/ADOLESCENTS* DESIRABLE: <200 MG/DL <170 MG/DL BORDER-LINE HIGH RISK: 200-239 MG/DL 170-199 MG/DL HIGH RISK: >240 MG/DL >200 MG/DL CLASS. FOR PRIMARY LDL CHOL PREVENTION: LDL CHOL-CHILD/ADOLESCENTS* DESIRABLE: <130 MG/DL <110 MG/DL BORDERLINE-HIGH RISK: 130- 159 MG/DL 110-129 MG/DL HIGH RISK: >160 MG/DL >130 MG/DL *CHILDREN AND ADOLESCENTS REPRESENTS INDIVIDUALA AGED 2-19 YEARS EXCLUSIVE. Alt (SGPT) 16 U/L 0-41 [facility] ([facility] NORMAL RANGES Age WBC RBC HGB HCT MCV PLT Adult M 4.1-10.9 4.20-6.30 12.0-18.0 37.0-51.0 80-97 140-440 Adult F 4.1-10.9 4.04-5.48 12.0-18.0 37.0-51.0 80-97 140-440 0 -1 Yr 5.0-20.0 3.9-5.9 15-18 MV: 44 MV: 91 MV: 277 2-9 Yr. 6.0-17.0 3.8-5.4 11-13 MV: 37 MV: 78 MV: 300 10 Yrs. 5.0-13.0 3.8-5.4 12-15 MV: 39 MV: 80 MV: 250 NOTE: * FOR ADULT BLACK MALES AND FEMALES, NORMAL WBC IS 2.9-7.7 K/ML * FOR ADULT BLACK MALES AND FEMALES, NORMAL RBC,HGB, AND HCT IS 5% LESS SOURCE FOR DATA: travelmob 1800 OPERATION MANUAL( AUTOMATED BLOOD COUNTS AND DIFF.) APPENDIX B-3 CHRONIC KIDNEY DISEASE STAGING PER NKF: MALE GFR INTERPRETATION: 20-49 YRS: >60 mL/min Normal 50-59 YRS: >56 mL/min Normal 60-69 YRS: >49 mL/min Normal 70-79 YRS: >42 mL/min Normal 80 and above >35 mL/min Normal FEMALE GRF INTERPRETATION: 20-39 YRS: >60 mL/min Normal 40-49 YRS: >58 mL/min Normal 50-59 YRS: >51 mL/min Normal 60-69 YRS: >45 mL/min Normal 70-79 YRS: >39 mL/min Normal 80 and above >32 mL/min NormalCLASSIFICATION CHOLESTEROL FOR ADULTS CHILDREN/ADOLESCENTS* DESIRABLE: <200 MG/DL <170 MG/DL BORDER-LINE HIGH RISK: 200-239 MG/DL 170-199 MG/DL HIGH RISK: >240 MG/DL >200 MG/DL CLASS. FOR PRIMARY LDL CHOL PREVENTION: LDL CHOL-CHILD/ADOLESCENTS* DESIRABLE: <130 MG/DL <110 MG/DL BORDERLINE-HIGH RISK: 130- 159 MG/DL 110-129 MG/DL HIGH RISK: >160 MG/DL >130 MG/DL *CHILDREN AND ADOLESCENTS REPRESENTS INDIVIDUALA AGED 2-19 YEARS EXCLUSIVE. Globulin 2.3 CALC [facility] NORMAL RANGES Age WBC RBC HGB HCT MCV PLT Adult M 4.1-10.9 4.20-6.30 12.0-18.0 37.0-51.0 80-97 140-440 Adult F 4.1-10.9 4.04-5.48 12.0-18.0 37.0-51.0 80-97 140-440 0 -1 Yr 5.0-20.0 3.9-5.9 15-18 MV: 44 MV: 91 MV: 277 2-9 Yr. 6.0-17.0 3.8-5.4 11-13 MV: 37 MV: 78 MV: 300 10 Yrs. 5.0-13.0 3.8-5.4 12-15 MV: 39 MV: 80 MV: 250 NOTE: * FOR ADULT BLACK MALES AND FEMALES, NORMAL WBC IS 2.9-7.7 K/ML * FOR ADULT BLACK MALES AND FEMALES, NORMAL RBC,HGB, AND HCT IS 5% LESS SOURCE FOR DATA: [employer] 1800 OPERATION MANUAL( AUTOMATED BLOOD COUNTS AND DIFF.) APPENDIX B-3 CHRONIC KIDNEY DISEASE STAGING PER NKF: MALE GFR INTERPRETATION: 20-49 YRS: >60 mL/min Normal 50-59 YRS: >56 mL/min Normal 60-69 YRS: >49 mL/min Normal 70-79 YRS: >42 mL/min Normal 80 and above >35 mL/min Normal FEMALE GRF INTERPRETATION: 20-39 YRS: >60 mL/min Normal 40-49 YRS: >58 mL/min Normal 50-59 YRS: >51 mL/min Normal 60-69 YRS: >45 mL/min Normal 70-79 YRS: >39 mL/min Normal 80 and above >32 mL/min NormalCLASSIFICATION CHOLESTEROL FOR ADULTS CHILDREN/ADOLESCENTS* DESIRABLE: <200 MG/DL <170 MG/DL BORDER-LINE HIGH RISK: 200-239 MG/DL 170-199 MG/DL HIGH RISK: >240 MG/DL >200 MG/DL CLASS. FOR PRIMARY LDL CHOL PREVENTION: LDL CHOL-CHILD/ADOLESCENTS* DESIRABLE: <130 MG/DL <110 MG/DL BORDERLINE-HIGH RISK: 130- 159 MG/DL 110-129 MG/DL HIGH RISK: >160 MG/DL >130 MG/DL *CHILDREN AND ADOLESCENTS REPRESENTS INDIVIDUALA AGED 2-19 YEARS EXCLUSIVE. Alp 65.2 U/L 35-129 [facility] NORMAL RANGES Age WBC RBC HGB HCT MCV PLT Adult M 4.1-10.9 4.20-6.30 12.0-18.0 37.0-51.0 80-97 140-440 Adult F 4.1-10.9 4.04-5.48 12.0-18.0 37.0-51.0 80-97 140-440 0 -1 Yr 5.0-20.0 3.9-5.9 15-18 MV: 44 MV: 91 MV: 277 2-9 Yr. 6.0-17.0 3.8-5.4 11-13 MV: 37 MV: 78 MV: 300 10 Yrs. 5.0-13.0 3.8-5.4 12-15 MV: 39 MV: 80 MV: 250 NOTE: * FOR ADULT BLACK MALES AND FEMALES, NORMAL WBC IS 2.9-7.7 K/ML * FOR ADULT BLACK MALES AND FEMALES, NORMAL RBC,HGB, AND HCT IS 5% LESS SOURCE FOR DATA: [employer] 1800 OPERATION MANUAL( AUTOMATED BLOOD COUNTS AND DIFF.) APPENDIX B-3 CHRONIC KIDNEY DISEASE STAGING PER NKF: MALE GFR INTERPRETATION: 20-49 YRS: >60 mL/min Normal 50-59 YRS: >56 mL/min Normal 60-69 YRS: >49 mL/min Normal 70-79 YRS: >42 mL/min Normal 80 and above >35 mL/min Normal FEMALE GRF INTERPRETATION: 20-39 YRS: >60 mL/min Normal 40-49 YRS: >58 mL/min Normal 50-59 YRS: >51 mL/min Normal 60-69 YRS: >45 mL/min Normal 70-79 YRS: >39 mL/min Normal 80 and above >32 mL/min NormalCLASSIFICATION CHOLESTEROL FOR ADULTS CHILDREN/ADOLESCENTS* DESIRABLE: <200 MG/DL <170 MG/DL BORDER-LINE HIGH RISK: 200-239 MG/DL 170-199 MG/DL HIGH RISK: >240 MG/DL >200 MG/DL CLASS. FOR PRIMARY LDL CHOL PREVENTION: LDL CHOL-CHILD/ADOLESCENTS* DESIRABLE: <130 MG/DL <110 MG/DL BORDERLINE-HIGH RISK: 130- 159 MG/DL 110-129 MG/DL HIGH RISK: >160 MG/DL >130 MG/DL *CHILDREN AND ADOLESCENTS REPRESENTS INDIVIDUALA AGED 2-19 YEARS EXCLUSIVE. Ast (Sgot) 20 U/L 0-40 [facility] NORMAL RANGES Age WBC RBC HGB HCT MCV PLT Adult M 4.1-10.9 4.20-6.30 12.0-18.0 37.0-51.0 80-97 140-440 Adult F 4.1-10.9 4.04-5.48 12.0-18.0 37.0-51.0 80-97 140-440 0 -1 Yr 5.0-20.0 3.9-5.9 15-18 MV: 44 MV: 91 MV: 277 2-9 Yr. 6.0-17.0 3.8-5.4 11-13 MV: 37 MV: 78 MV: 300 10 Yrs. 5.0-13.0 3.8-5.4 12-15 MV: 39 MV: 80 MV: 250 NOTE: * FOR ADULT BLACK MALES AND FEMALES, NORMAL WBC IS 2.9-7.7 K/ML * FOR ADULT BLACK MALES AND FEMALES, NORMAL RBC,HGB, AND HCT IS 5% LESS SOURCE FOR DATA: [employer] 1800 OPERATION MANUAL( AUTOMATED BLOOD COUNTS AND DIFF.) APPENDIX B-3 CHRONIC KIDNEY DISEASE STAGING PER NKF: MALE GFR INTERPRETATION: 20-49 YRS: >60 mL/min Normal 50-59 YRS: >56 mL/min Normal 60-69 YRS: >49 mL/min Normal 70-79 YRS: >42 mL/min Normal 80 and above >35 mL/min Normal FEMALE GRF INTERPRETATION: 20-39 YRS: >60 mL/min Normal 40-49 YRS: >58 mL/min Normal 50-59 YRS: >51 mL/min Normal 60-69 YRS: >45 mL/min Normal 70-79 YRS: >39 mL/min Normal 80 and above >32 mL/min NormalCLASSIFICATION CHOLESTEROL FOR ADULTS CHILDREN/ADOLESCENTS* DESIRABLE: <200 MG/DL <170 MG/DL BORDER-LINE HIGH RISK: 200-239 MG/DL 170-199 MG/DL HIGH RISK: >240 MG/DL >200 MG/DL CLASS. FOR PRIMARY LDL CHOL PREVENTION: LDL CHOL-CHILD/ADOLESCENTS* DESIRABLE: <130 MG/DL <110 MG/DL BORDERLINE-HIGH RISK: 130- 159 MG/DL 110-129 MG/DL HIGH RISK: >160 MG/DL >130 MG/DL *CHILDREN AND ADOLESCENTS REPRESENTS INDIVIDUALA AGED 2-19 YEARS EXCLUSIVE. Osmolality-Calculated 276.7 [facility] ([facility] NORMAL RANGES Age WBC RBC HGB HCT MCV PLT Adult M 4.1-10.9 4.20-6.30 12.0-18.0 37.0-51.0 80-97 140-440 Adult F 4.1-10.9 4.04-5.48 12.0-18.0 37.0-51.0 80-97 140-440 0 -1 Yr 5.0-20.0 3.9-5.9 15-18 MV: 44 MV: 91 MV: 277 2-9 Yr. 6.0-17.0 3.8-5.4 11-13 MV: 37 MV: 78 MV: 300 10 Yrs. 5.0-13.0 3.8-5.4 12-15 MV: 39 MV: 80 MV: 250 NOTE: * FOR ADULT BLACK MALES AND FEMALES, NORMAL WBC IS 2.9-7.7 K/ML * FOR ADULT BLACK MALES AND FEMALES, NORMAL RBC,HGB, AND HCT IS 5% LESS SOURCE FOR DATA: [employer] 1800 OPERATION MANUAL( AUTOMATED BLOOD COUNTS AND DIFF.) APPENDIX B-3 CHRONIC KIDNEY DISEASE STAGING PER NKF: MALE GFR INTERPRETATION: 20-49 YRS: >60 mL/min Normal 50-59 YRS: >56 mL/min Normal 60-69 YRS: >49 mL/min Normal 70-79 YRS: >42 mL/min Normal 80 and above >35 mL/min Normal FEMALE GRF INTERPRETATION: 20-39 YRS: >60 mL/min Normal 40-49 YRS: >58 mL/min Normal 50-59 YRS: >51 mL/min Normal 60-69 YRS: >45 mL/min Normal 70-79 YRS: >39 mL/min Normal 80 and above >32 mL/min NormalCLASSIFICATION CHOLESTEROL FOR ADULTS CHILDREN/ADOLESCENTS* DESIRABLE: <200 MG/DL <170 MG/DL BORDER-LINE HIGH RISK: 200-239 MG/DL 170-199 MG/DL HIGH RISK: >240 MG/DL >200 MG/DL CLASS. FOR PRIMARY LDL CHOL PREVENTION: LDL CHOL-CHILD/ADOLESCENTS* DESIRABLE: <130 MG/DL <110 MG/DL BORDERLINE-HIGH RISK: 130- 159 MG/DL 110-129 MG/DL HIGH RISK: >160 MG/DL >130 MG/DL *CHILDREN AND ADOLESCENTS REPRESENTS INDIVIDUALA AGED 2-19 YEARS EXCLUSIVE. Tbili 0.34 mg/dL 0.0-1.2 [facility] ([facility] NORMAL RANGES Age WBC RBC HGB HCT MCV PLT Adult M 4.1-10.9 4.20-6.30 12.0-18.0 37.0-51.0 80-97 140-440 Adult F 4.1-10.9 4.04-5.48 12.0-18.0 37.0-51.0 80-97 140-440 0 -1 Yr 5.0-20.0 3.9-5.9 15-18 MV: 44 MV: 91 MV: 277 2-9 Yr. 6.0-17.0 3.8-5.4 11-13 MV: 37 MV: 78 MV: 300 10 Yrs. 5.0-13.0 3.8-5.4 12-15 MV: 39 MV: 80 MV: 250 NOTE: * FOR ADULT BLACK MALES AND FEMALES, NORMAL WBC IS 2.9-7.7 K/ML * FOR ADULT BLACK MALES AND FEMALES, NORMAL RBC,HGB, AND HCT IS 5% LESS SOURCE FOR DATA: travelmob 1800 OPERATION MANUAL( AUTOMATED BLOOD COUNTS AND DIFF.) APPENDIX B-3 CHRONIC KIDNEY DISEASE STAGING PER NKF: MALE GFR INTERPRETATION: 20-49 YRS: >60 mL/min Normal 50-59 YRS: >56 mL/min Normal 60-69 YRS: >49 mL/min Normal 70-79 YRS: >42 mL/min Normal 80 and above >35 mL/min Normal FEMALE GRF INTERPRETATION: 20-39 YRS: >60 mL/min Normal 40-49 YRS: >58 mL/min Normal 50-59 YRS: >51 mL/min Normal 60-69 YRS: >45 mL/min Normal 70-79 YRS: >39 mL/min Normal 80 and above >32 mL/min NormalCLASSIFICATION CHOLESTEROL FOR ADULTS CHILDREN/ADOLESCENTS* DESIRABLE: <200 MG/DL <170 MG/DL BORDER-LINE HIGH RISK: 200-239 MG/DL 170-199 MG/DL HIGH RISK: >240 MG/DL >200 MG/DL CLASS. FOR PRIMARY LDL CHOL PREVENTION: LDL CHOL-CHILD/ADOLESCENTS* DESIRABLE: <130 MG/DL <110 MG/DL BORDERLINE-HIGH RISK: 130- 159 MG/DL 110-129 MG/DL HIGH RISK: >160 MG/DL >130 MG/DL *CHILDREN AND ADOLESCENTS REPRESENTS INDIVIDUALA AGED 2-19 YEARS EXCLUSIVE. Anion Gap 13 mmol/L [facility] NORMAL RANGES Age WBC RBC HGB HCT MCV PLT Adult M 4.1-10.9 4.20-6.30 12.0-18.0 37.0-51.0 80-97 140-440 Adult F 4.1-10.9 4.04-5.48 12.0-18.0 37.0-51.0 80-97 140-440 0 -1 Yr 5.0-20.0 3.9-5.9 15-18 MV: 44 MV: 91 MV: 277 2-9 Yr. 6.0-17.0 3.8-5.4 11-13 MV: 37 MV: 78 MV: 300 10 Yrs. 5.0-13.0 3.8-5.4 12-15 MV: 39 MV: 80 MV: 250 NOTE: * FOR ADULT BLACK MALES AND FEMALES, NORMAL WBC IS 2.9-7.7 K/ML * FOR ADULT BLACK MALES AND FEMALES, NORMAL RBC,HGB, AND HCT IS 5% LESS SOURCE FOR DATA: travelmob 1800 OPERATION MANUAL( AUTOMATED BLOOD COUNTS AND DIFF.) APPENDIX B-3 CHRONIC KIDNEY DISEASE STAGING PER NKF: MALE GFR INTERPRETATION: 20-49 YRS: >60 mL/min Normal 50-59 YRS: >56 mL/min Normal 60-69 YRS: >49 mL/min Normal 70-79 YRS: >42 mL/min Normal 80 and above >35 mL/min Normal FEMALE GRF INTERPRETATION: 20-39 YRS: >60 mL/min Normal 40-49 YRS: >58 mL/min Normal 50-59 YRS: >51 mL/min Normal 60-69 YRS: >45 mL/min Normal 70-79 YRS: >39 mL/min Normal 80 and above >32 mL/min NormalCLASSIFICATION CHOLESTEROL FOR ADULTS CHILDREN/ADOLESCENTS* DESIRABLE: <200 MG/DL <170 MG/DL BORDER-LINE HIGH RISK: 200-239 MG/DL 170-199 MG/DL HIGH RISK: >240 MG/DL >200 MG/DL CLASS. FOR PRIMARY LDL CHOL PREVENTION: LDL CHOL-CHILD/ADOLESCENTS* DESIRABLE: <130 MG/DL <110 MG/DL BORDERLINE-HIGH RISK: 130- 159 MG/DL 110-129 MG/DL HIGH RISK: >160 MG/DL >130 MG/DL *CHILDREN AND ADOLESCENTS REPRESENTS INDIVIDUALA AGED 2-19 YEARS EXCLUSIVE. eGFR 96 # [facility] ( [facility] NORMAL RANGES Age WBC RBC HGB HCT MCV PLT Adult M 4.1-10.9 4.20-6.30 12.0-18.0 37.0-51.0 80-97 140-440 Adult F 4.1-10.9 4.04-5.48 12.0-18.0 37.0-51.0 80-97 140-440 0 -1 Yr 5.0-20.0 3.9-5.9 15-18 MV: 44 MV: 91 MV: 277 2-9 Yr. 6.0-17.0 3.8-5.4 11-13 MV: 37 MV: 78 MV: 300 10 Yrs. 5.0-13.0 3.8-5.4 12-15 MV: 39 MV: 80 MV: 250 NOTE: * FOR ADULT BLACK MALES AND FEMALES, NORMAL WBC IS 2.9-7.7 K/ML * FOR ADULT BLACK MALES AND FEMALES, NORMAL RBC,HGB, AND HCT IS 5% LESS SOURCE FOR DATA: MAHESH DYN 1800 OPERATION MANUAL( AUTOMATED BLOOD COUNTS AND DIFF.) APPENDIX B-3 CHRONIC KIDNEY DISEASE STAGING PER NKF: MALE GFR INTERPRETATION: 20-49 YRS: >60 mL/min Normal 50-59 YRS: >56 mL/min Normal 60-69 YRS: >49 mL/min Normal 70-79 YRS: >42 mL/min Normal 80 and above >35 mL/min Normal FEMALE GRF INTERPRETATION: 20-39 YRS: >60 mL/min Normal 40-49 YRS: >58 mL/min Normal 50-59 YRS: >51 mL/min Normal 60-69 YRS: >45 mL/min Normal 70-79 YRS: >39 mL/min Normal 80 and above >32 mL/min NormalCLASSIFICATION CHOLESTEROL FOR ADULTS CHILDREN/ADOLESCENTS* DESIRABLE: <200 MG/DL <170 MG/DL BORDER-LINE HIGH RISK: 200-239 MG/DL 170-199 MG/DL HIGH RISK: >240 MG/DL >200 MG/DL CLASS. FOR PRIMARY LDL CHOL PREVENTION: LDL CHOL-CHILD/ADOLESCENTS* DESIRABLE: <130 MG/DL <110 MG/DL BORDERLINE-HIGH RISK: 130- 159 MG/DL 110-129 MG/DL HIGH RISK: >160 MG/DL >130 MG/DL *CHILDREN AND ADOLESCENTS REPRESENTS INDIVIDUALA AGED 2-19 YEARS EXCLUSIVE. eGFR Non-Afr. Qatari 83 # [facility] ([facility] NORMAL RANGES Age WBC RBC HGB HCT MCV PLT Adult M 4.1-10.9 4.20-6.30 12.0-18.0 37.0-51.0 80-97 140-440 Adult F 4.1-10.9 4.04-5.48 12.0-18.0 37.0-51.0 80-97 140-440 0 -1 Yr 5.0-20.0 3.9-5.9 15-18 MV: 44 MV: 91 MV: 277 2-9 Yr. 6.0-17.0 3.8-5.4 11-13 MV: 37 MV: 78 MV: 300 10 Yrs. 5.0-13.0 3.8-5.4 12-15 MV: 39 MV: 80 MV: 250 NOTE: * FOR ADULT BLACK MALES AND FEMALES, NORMAL WBC IS 2.9-7.7 K/ML * FOR ADULT BLACK MALES AND FEMALES, NORMAL RBC,HGB, AND HCT IS 5% LESS SOURCE FOR DATA: travelmob 1800 OPERATION MANUAL( AUTOMATED BLOOD COUNTS AND DIFF.) APPENDIX B-3 CHRONIC KIDNEY DISEASE STAGING PER NKF: MALE GFR INTERPRETATION: 20-49 YRS: >60 mL/min Normal 50-59 YRS: >56 mL/min Normal 60-69 YRS: >49 mL/min Normal 70-79 YRS: >42 mL/min Normal 80 and above >35 mL/min Normal FEMALE GRF INTERPRETATION: 20-39 YRS: >60 mL/min Normal 40-49 YRS: >58 mL/min Normal 50-59 YRS: >51 mL/min Normal 60-69 YRS: >45 mL/min Normal 70-79 YRS: >39 mL/min Normal 80 and above >32 mL/min NormalCLASSIFICATION CHOLESTEROL FOR ADULTS CHILDREN/ADOLESCENTS* DESIRABLE: <200 MG/DL <170 MG/DL BORDER-LINE HIGH RISK: 200-239 MG/DL 170-199 MG/DL HIGH RISK: >240 MG/DL >200 MG/DL CLASS. FOR PRIMARY LDL CHOL PREVENTION: LDL CHOL-CHILD/ADOLESCENTS* DESIRABLE: <130 MG/DL <110 MG/DL BORDERLINE-HIGH RISK: 130- 159 MG/DL 110-129 MG/DL HIGH RISK: >160 MG/DL >130 MG/DL *CHILDREN AND ADOLESCENTS REPRESENTS INDIVIDUALA AGED 2-19 YEARS EXCLUSIVE. ID Date Data Source [id number] 07/05/2020 10:47:00 AM EST [facility] ([facility] Name Value Range Interpretation Code Description Data Arielle rce(s) Supporting Document(s) WBC 6.2 10E3/uL 4.1-10.9 [facility] ([facility] NORMAL RANGES Age WBC RBC HGB HCT MCV PLT Adult M 4.1-10.9 4.20-6.30 12.0-18.0 37.0-51.0 80-97 140-440 Adult F 4.1-10.9 4.04-5.48 12.0-18.0 37.0-51.0 80-97 140-440 0 -1 Yr 5.0-20.0 3.9-5.9 15-18 MV: 44 MV: 91 MV: 277 2-9 Yr. 6.0-17.0 3.8-5.4 11-13 MV: 37 MV: 78 MV: 300 10 Yrs. 5.0-13.0 3.8-5.4 12-15 MV: 39 MV: 80 MV: 250 NOTE: * FOR ADULT BLACK MALES AND FEMALES, NORMAL WBC IS 2.9-7.7 K/ML * FOR ADULT BLACK MALES AND FEMALES, NORMAL RBC,HGB, AND HCT IS 5% LESS SOURCE FOR DATA: travelmob 1800 OPERATION MANUAL( AUTOMATED BLOOD COUNTS AND DIFF.) APPENDIX B-3 CHRONIC KIDNEY DISEASE STAGING PER NKF: MALE GFR INTERPRETATION: 20-49 YRS: >60 mL/min Normal 50-59 YRS: >56 mL/min Normal 60-69 YRS: >49 mL/min Normal 70-79 YRS: >42 mL/min Normal 80 and above >35 mL/min Normal FEMALE GRF INTERPRETATION: 20-39 YRS: >60 mL/min Normal 40-49 YRS: >58 mL/min Normal 50-59 YRS: >51 mL/min Normal 60-69 YRS: >45 mL/min Normal 70-79 YRS: >39 mL/min Normal 80 and above >32 mL/min NormalCLASSIFICATION CHOLESTEROL FOR ADULTS CHILDREN/ADOLESCENTS* DESIRABLE: <200 MG/DL <170 MG/DL BORDER-LINE HIGH RISK: 200-239 MG/DL 170-199 MG/DL HIGH RISK: >240 MG/DL >200 MG/DL CLASS. FOR PRIMARY LDL CHOL PREVENTION: LDL CHOL-CHILD/ADOLESCENTS* DESIRABLE: <130 MG/DL <110 MG/DL BORDERLINE-HIGH RISK: 130- 159 MG/DL 110-129 MG/DL HIGH RISK: >160 MG/DL >130 MG/DL *CHILDREN AND ADOLESCENTS REPRESENTS INDIVIDUALA AGED 2-19 YEARS EXCLUSIVE. HCT 38.5 % 37.0-51.0 [facility] ([facility] NORMAL RANGES Age WBC RBC HGB HCT MCV PLT Adult M 4.1-10.9 4.20-6.30 12.0-18.0 37.0-51.0 80-97 140-440 Adult F 4.1-10.9 4.04-5.48 12.0-18.0 37.0-51.0 80-97 140-440 0 -1 Yr 5.0-20.0 3.9-5.9 15-18 MV: 44 MV: 91 MV: 277 2-9 Yr. 6.0-17.0 3.8-5.4 11-13 MV: 37 MV: 78 MV: 300 10 Yrs. 5.0-13.0 3.8-5.4 12-15 MV: 39 MV: 80 MV: 250 NOTE: * FOR ADULT BLACK MALES AND FEMALES, NORMAL WBC IS 2.9-7.7 K/ML * FOR ADULT BLACK MALES AND FEMALES, NORMAL RBC,HGB, AND HCT IS 5% LESS SOURCE FOR DATA: travelmob 1800 OPERATION MANUAL( AUTOMATED BLOOD COUNTS AND DIFF.) APPENDIX B-3 CHRONIC KIDNEY DISEASE STAGING PER NKF: MALE GFR INTERPRETATION: 20-49 YRS: >60 mL/min Normal 50-59 YRS: >56 mL/min Normal 60-69 YRS: >49 mL/min Normal 70-79 YRS: >42 mL/min Normal 80 and above >35 mL/min Normal FEMALE GRF INTERPRETATION: 20-39 YRS: >60 mL/min Normal 40-49 YRS: >58 mL/min Normal 50-59 YRS: >51 mL/min Normal 60-69 YRS: >45 mL/min Normal 70-79 YRS: >39 mL/min Normal 80 and above >32 mL/min NormalCLASSIFICATION CHOLESTEROL FOR ADULTS CHILDREN/ADOLESCENTS* DESIRABLE: <200 MG/DL <170 MG/DL BORDER-LINE HIGH RISK: 200-239 MG/DL 170-199 MG/DL HIGH RISK: >240 MG/DL >200 MG/DL CLASS. FOR PRIMARY LDL CHOL PREVENTION: LDL CHOL-CHILD/ADOLESCENTS* DESIRABLE: <130 MG/DL <110 MG/DL BORDERLINE-HIGH RISK: 130- 159 MG/DL 110-129 MG/DL HIGH RISK: >160 MG/DL >130 MG/DL *CHILDREN AND ADOLESCENTS REPRESENTS INDIVIDUALA AGED 2-19 YEARS EXCLUSIVE. RBC 4.14 10E6/uL 4.20-6.30 Below low normal [facility] ([facility] NORMAL RANGES Age WBC RBC HGB HCT MCV PLT Adult M 4.1-10.9 4.20-6.30 12.0-18.0 37.0-51.0 80-97 140-440 Adult F 4.1-10.9 4.04-5.48 12.0-18.0 37.0-51.0 80-97 140-440 0 -1 Yr 5.0-20.0 3.9-5.9 15-18 MV: 44 MV: 91 MV: 277 2-9 Yr. 6.0-17.0 3.8-5.4 11-13 MV: 37 MV: 78 MV: 300 10 Yrs. 5.0-13.0 3.8-5.4 12-15 MV: 39 MV: 80 MV: 250 NOTE: * FOR ADULT BLACK MALES AND FEMALES, NORMAL WBC IS 2.9-7.7 K/ML * FOR ADULT BLACK MALES AND FEMALES, NORMAL RBC,HGB, AND HCT IS 5% LESS SOURCE FOR DATA: travelmob 1800 OPERATION MANUAL( AUTOMATED BLOOD COUNTS AND DIFF.) APPENDIX B-3 CHRONIC KIDNEY DISEASE STAGING PER NKF: MALE GFR INTERPRETATION: 20-49 YRS: >60 mL/min Normal 50-59 YRS: >56 mL/min Normal 60-69 YRS: >49 mL/min Normal 70-79 YRS: >42 mL/min Normal 80 and above >35 mL/min Normal FEMALE GRF INTERPRETATION: 20-39 YRS: >60 mL/min Normal 40-49 YRS: >58 mL/min Normal 50-59 YRS: >51 mL/min Normal 60-69 YRS: >45 mL/min Normal 70-79 YRS: >39 mL/min Normal 80 and above >32 mL/min NormalCLASSIFICATION CHOLESTEROL FOR ADULTS CHILDREN/ADOLESCENTS* DESIRABLE: <200 MG/DL <170 MG/DL BORDER-LINE HIGH RISK: 200-239 MG/DL 170-199 MG/DL HIGH RISK: >240 MG/DL >200 MG/DL CLASS. FOR PRIMARY LDL CHOL PREVENTION: LDL CHOL-CHILD/ADOLESCENTS* DESIRABLE: <130 MG/DL <110 MG/DL BORDERLINE-HIGH RISK: 130- 159 MG/DL 110-129 MG/DL HIGH RISK: >160 MG/DL >130 MG/DL *CHILDREN AND ADOLESCENTS REPRESENTS INDIVIDUALA AGED 2-19 YEARS EXCLUSIVE. HGB 12.8 g/dL 12.0-18.0 [facility] ([facility] NORMAL RANGES Age WBC RBC HGB HCT MCV PLT Adult M 4.1-10.9 4.20-6.30 12.0-18.0 37.0-51.0 80-97 140-440 Adult F 4.1-10.9 4.04-5.48 12.0-18.0 37.0-51.0 80-97 140-440 0 -1 Yr 5.0-20.0 3.9-5.9 15-18 MV: 44 MV: 91 MV: 277 2-9 Yr. 6.0-17.0 3.8-5.4 11-13 MV: 37 MV: 78 MV: 300 10 Yrs. 5.0-13.0 3.8-5.4 12-15 MV: 39 MV: 80 MV: 250 NOTE: * FOR ADULT BLACK MALES AND FEMALES, NORMAL WBC IS 2.9-7.7 K/ML * FOR ADULT BLACK MALES AND FEMALES, NORMAL RBC,HGB, AND HCT IS 5% LESS SOURCE FOR DATA: travelmob 1800 OPERATION MANUAL( AUTOMATED BLOOD COUNTS AND DIFF.) APPENDIX B-3 CHRONIC KIDNEY DISEASE STAGING PER NKF: MALE GFR INTERPRETATION: 20-49 YRS: >60 mL/min Normal 50-59 YRS: >56 mL/min Normal 60-69 YRS: >49 mL/min Normal 70-79 YRS: >42 mL/min Normal 80 and above >35 mL/min Normal FEMALE GRF INTERPRETATION: 20-39 YRS: >60 mL/min Normal 40-49 YRS: >58 mL/min Normal 50-59 YRS: >51 mL/min Normal 60-69 YRS: >45 mL/min Normal 70-79 YRS: >39 mL/min Normal 80 and above >32 mL/min NormalCLASSIFICATION CHOLESTEROL FOR ADULTS CHILDREN/ADOLESCENTS* DESIRABLE: <200 MG/DL <170 MG/DL BORDER-LINE HIGH RISK: 200-239 MG/DL 170-199 MG/DL HIGH RISK: >240 MG/DL >200 MG/DL CLASS. FOR PRIMARY LDL CHOL PREVENTION: LDL CHOL-CHILD/ADOLESCENTS* DESIRABLE: <130 MG/DL <110 MG/DL BORDERLINE-HIGH RISK: 130- 159 MG/DL 110-129 MG/DL HIGH RISK: >160 MG/DL >130 MG/DL *CHILDREN AND ADOLESCENTS REPRESENTS INDIVIDUALA AGED 2-19 YEARS EXCLUSIVE. MCH 30.9 pg 26.0-32.0 [facility] ([facility] NORMAL RANGES Age WBC RBC HGB HCT MCV PLT Adult M 4.1-10.9 4.20-6.30 12.0-18.0 37.0-51.0 80-97 140-440 Adult F 4.1-10.9 4.04-5.48 12.0-18.0 37.0-51.0 80-97 140-440 0 -1 Yr 5.0-20.0 3.9-5.9 15-18 MV: 44 MV: 91 MV: 277 2-9 Yr. 6.0-17.0 3.8-5.4 11-13 MV: 37 MV: 78 MV: 300 10 Yrs. 5.0-13.0 3.8-5.4 12-15 MV: 39 MV: 80 MV: 250 NOTE: * FOR ADULT BLACK MALES AND FEMALES, NORMAL WBC IS 2.9-7.7 K/ML * FOR ADULT BLACK MALES AND FEMALES, NORMAL RBC,HGB, AND HCT IS 5% LESS SOURCE FOR DATA: travelmob 1800 OPERATION MANUAL( AUTOMATED BLOOD COUNTS AND DIFF.) APPENDIX B-3 CHRONIC KIDNEY DISEASE STAGING PER NKF: MALE GFR INTERPRETATION: 20-49 YRS: >60 mL/min Normal 50-59 YRS: >56 mL/min Normal 60-69 YRS: >49 mL/min Normal 70-79 YRS: >42 mL/min Normal 80 and above >35 mL/min Normal FEMALE GRF INTERPRETATION: 20-39 YRS: >60 mL/min Normal 40-49 YRS: >58 mL/min Normal 50-59 YRS: >51 mL/min Normal 60-69 YRS: >45 mL/min Normal 70-79 YRS: >39 mL/min Normal 80 and above >32 mL/min NormalCLASSIFICATION CHOLESTEROL FOR ADULTS CHILDREN/ADOLESCENTS* DESIRABLE: <200 MG/DL <170 MG/DL BORDER-LINE HIGH RISK: 200-239 MG/DL 170-199 MG/DL HIGH RISK: >240 MG/DL >200 MG/DL CLASS. FOR PRIMARY LDL CHOL PREVENTION: LDL CHOL-CHILD/ADOLESCENTS* DESIRABLE: <130 MG/DL <110 MG/DL BORDERLINE-HIGH RISK: 130- 159 MG/DL 110-129 MG/DL HIGH RISK: >160 MG/DL >130 MG/DL *CHILDREN AND ADOLESCENTS REPRESENTS INDIVIDUALA AGED 2-19 YEARS EXCLUSIVE. MCHC 33.2 g/dL 31.0-36.0 [facility] ([facility] NORMAL RANGES Age WBC RBC HGB HCT MCV PLT Adult M 4.1-10.9 4.20-6.30 12.0-18.0 37.0-51.0 80-97 140-440 Adult F 4.1-10.9 4.04-5.48 12.0-18.0 37.0-51.0 80-97 140-440 0 -1 Yr 5.0-20.0 3.9-5.9 15-18 MV: 44 MV: 91 MV: 277 2-9 Yr. 6.0-17.0 3.8-5.4 11-13 MV: 37 MV: 78 MV: 300 10 Yrs. 5.0-13.0 3.8-5.4 12-15 MV: 39 MV: 80 MV: 250 NOTE: * FOR ADULT BLACK MALES AND FEMALES, NORMAL WBC IS 2.9-7.7 K/ML * FOR ADULT BLACK MALES AND FEMALES, NORMAL RBC,HGB, AND HCT IS 5% LESS SOURCE FOR DATA: travelmob 1800 OPERATION MANUAL( AUTOMATED BLOOD COUNTS AND DIFF.) APPENDIX B-3 CHRONIC KIDNEY DISEASE STAGING PER NKF: MALE GFR INTERPRETATION: 20-49 YRS: >60 mL/min Normal 50-59 YRS: >56 mL/min Normal 60-69 YRS: >49 mL/min Normal 70-79 YRS: >42 mL/min Normal 80 and above >35 mL/min Normal FEMALE GRF INTERPRETATION: 20-39 YRS: >60 mL/min Normal 40-49 YRS: >58 mL/min Normal 50-59 YRS: >51 mL/min Normal 60-69 YRS: >45 mL/min Normal 70-79 YRS: >39 mL/min Normal 80 and above >32 mL/min NormalCLASSIFICATION CHOLESTEROL FOR ADULTS CHILDREN/ADOLESCENTS* DESIRABLE: <200 MG/DL <170 MG/DL BORDER-LINE HIGH RISK: 200-239 MG/DL 170-199 MG/DL HIGH RISK: >240 MG/DL >200 MG/DL CLASS. FOR PRIMARY LDL CHOL PREVENTION: LDL CHOL-CHILD/ADOLESCENTS* DESIRABLE: <130 MG/DL <110 MG/DL BORDERLINE-HIGH RISK: 130- 159 MG/DL 110-129 MG/DL HIGH RISK: >160 MG/DL >130 MG/DL *CHILDREN AND ADOLESCENTS REPRESENTS INDIVIDUALA AGED 2-19 YEARS EXCLUSIVE. MCV 93.0 fL 80.0-97.0 [facility] ([facility] NORMAL RANGES Age WBC RBC HGB HCT MCV PLT Adult M 4.1-10.9 4.20-6.30 12.0-18.0 37.0-51.0 80-97 140-440 Adult F 4.1-10.9 4.04-5.48 12.0-18.0 37.0-51.0 80-97 140-440 0 -1 Yr 5.0-20.0 3.9-5.9 15-18 MV: 44 MV: 91 MV: 277 2-9 Yr. 6.0-17.0 3.8-5.4 11-13 MV: 37 MV: 78 MV: 300 10 Yrs. 5.0-13.0 3.8-5.4 12-15 MV: 39 MV: 80 MV: 250 NOTE: * FOR ADULT BLACK MALES AND FEMALES, NORMAL WBC IS 2.9-7.7 K/ML * FOR ADULT BLACK MALES AND FEMALES, NORMAL RBC,HGB, AND HCT IS 5% LESS SOURCE FOR DATA: travelmob 1800 OPERATION MANUAL( AUTOMATED BLOOD COUNTS AND DIFF.) APPENDIX B-3 CHRONIC KIDNEY DISEASE STAGING PER NKF: MALE GFR INTERPRETATION: 20-49 YRS: >60 mL/min Normal 50-59 YRS: >56 mL/min Normal 60-69 YRS: >49 mL/min Normal 70-79 YRS: >42 mL/min Normal 80 and above >35 mL/min Normal FEMALE GRF INTERPRETATION: 20-39 YRS: >60 mL/min Normal 40-49 YRS: >58 mL/min Normal 50-59 YRS: >51 mL/min Normal 60-69 YRS: >45 mL/min Normal 70-79 YRS: >39 mL/min Normal 80 and above >32 mL/min NormalCLASSIFICATION CHOLESTEROL FOR ADULTS CHILDREN/ADOLESCENTS* DESIRABLE: <200 MG/DL <170 MG/DL BORDER-LINE HIGH RISK: 200-239 MG/DL 170-199 MG/DL HIGH RISK: >240 MG/DL >200 MG/DL CLASS. FOR PRIMARY LDL CHOL PREVENTION: LDL CHOL-CHILD/ADOLESCENTS* DESIRABLE: <130 MG/DL <110 MG/DL BORDERLINE-HIGH RISK: 130- 159 MG/DL 110-129 MG/DL HIGH RISK: >160 MG/DL >130 MG/DL *CHILDREN AND ADOLESCENTS REPRESENTS INDIVIDUALA AGED 2-19 YEARS EXCLUSIVE. PLT 182 10E3/uL 140-440 [facility] ([facility] NORMAL RANGES Age WBC RBC HGB HCT MCV PLT Adult M 4.1-10.9 4.20-6.30 12.0-18.0 37.0-51.0 80-97 140-440 Adult F 4.1-10.9 4.04-5.48 12.0-18.0 37.0-51.0 80-97 140-440 0 -1 Yr 5.0-20.0 3.9-5.9 15-18 MV: 44 MV: 91 MV: 277 2-9 Yr. 6.0-17.0 3.8-5.4 11-13 MV: 37 MV: 78 MV: 300 10 Yrs. 5.0-13.0 3.8-5.4 12-15 MV: 39 MV: 80 MV: 250 NOTE: * FOR ADULT BLACK MALES AND FEMALES, NORMAL WBC IS 2.9-7.7 K/ML * FOR ADULT BLACK MALES AND FEMALES, NORMAL RBC,HGB, AND HCT IS 5% LESS SOURCE FOR DATA: travelmob 1800 OPERATION MANUAL( AUTOMATED BLOOD COUNTS AND DIFF.) APPENDIX B-3 CHRONIC KIDNEY DISEASE STAGING PER NKF: MALE GFR INTERPRETATION: 20-49 YRS: >60 mL/min Normal 50-59 YRS: >56 mL/min Normal 60-69 YRS: >49 mL/min Normal 70-79 YRS: >42 mL/min Normal 80 and above >35 mL/min Normal FEMALE GRF INTERPRETATION: 20-39 YRS: >60 mL/min Normal 40-49 YRS: >58 mL/min Normal 50-59 YRS: >51 mL/min Normal 60-69 YRS: >45 mL/min Normal 70-79 YRS: >39 mL/min Normal 80 and above >32 mL/min NormalCLASSIFICATION CHOLESTEROL FOR ADULTS CHILDREN/ADOLESCENTS* DESIRABLE: <200 MG/DL <170 MG/DL BORDER-LINE HIGH RISK: 200-239 MG/DL 170-199 MG/DL HIGH RISK: >240 MG/DL >200 MG/DL CLASS. FOR PRIMARY LDL CHOL PREVENTION: LDL CHOL-CHILD/ADOLESCENTS* DESIRABLE: <130 MG/DL <110 MG/DL BORDERLINE-HIGH RISK: 130- 159 MG/DL 110-129 MG/DL HIGH RISK: >160 MG/DL >130 MG/DL *CHILDREN AND ADOLESCENTS REPRESENTS INDIVIDUALA AGED 2-19 YEARS EXCLUSIVE. RDW-CV 12.6 % 11.5-14.5 [facility] ([facility] NORMAL RANGES Age WBC RBC HGB HCT MCV PLT Adult M 4.1-10.9 4.20-6.30 12.0-18.0 37.0-51.0 80-97 140-440 Adult F 4.1-10.9 4.04-5.48 12.0-18.0 37.0-51.0 80-97 140-440 0 -1 Yr 5.0-20.0 3.9-5.9 15-18 MV: 44 MV: 91 MV: 277 2-9 Yr. 6.0-17.0 3.8-5.4 11-13 MV: 37 MV: 78 MV: 300 10 Yrs. 5.0-13.0 3.8-5.4 12-15 MV: 39 MV: 80 MV: 250 NOTE: * FOR ADULT BLACK MALES AND FEMALES, NORMAL WBC IS 2.9-7.7 K/ML * FOR ADULT BLACK MALES AND FEMALES, NORMAL RBC,HGB, AND HCT IS 5% LESS SOURCE FOR DATA: [employer] 1800 OPERATION MANUAL( AUTOMATED BLOOD COUNTS AND DIFF.) APPENDIX B-3 CHRONIC KIDNEY DISEASE STAGING PER NKF: MALE GFR INTERPRETATION: 20-49 YRS: >60 mL/min Normal 50-59 YRS: >56 mL/min Normal 60-69 YRS: >49 mL/min Normal 70-79 YRS: >42 mL/min Normal 80 and above >35 mL/min Normal FEMALE GRF INTERPRETATION: 20-39 YRS: >60 mL/min Normal 40-49 YRS: >58 mL/min Normal 50-59 YRS: >51 mL/min Normal 60-69 YRS: >45 mL/min Normal 70-79 YRS: >39 mL/min Normal 80 and above >32 mL/min NormalCLASSIFICATION CHOLESTEROL FOR ADULTS CHILDREN/ADOLESCENTS* DESIRABLE: <200 MG/DL <170 MG/DL BORDER-LINE HIGH RISK: 200-239 MG/DL 170-199 MG/DL HIGH RISK: >240 MG/DL >200 MG/DL CLASS. FOR PRIMARY LDL CHOL PREVENTION: LDL CHOL-CHILD/ADOLESCENTS* DESIRABLE: <130 MG/DL <110 MG/DL BORDERLINE-HIGH RISK: 130- 159 MG/DL 110-129 MG/DL HIGH RISK: >160 MG/DL >130 MG/DL *CHILDREN AND ADOLESCENTS REPRESENTS INDIVIDUALA AGED 2-19 YEARS EXCLUSIVE. MXD% 3.5 % 0.1-24.0 [facility] ([facility] NORMAL RANGES Age WBC RBC HGB HCT MCV PLT Adult M 4.1-10.9 4.20-6.30 12.0-18.0 37.0-51.0 80-97 140-440 Adult F 4.1-10.9 4.04-5.48 12.0-18.0 37.0-51.0 80-97 140-440 0 -1 Yr 5.0-20.0 3.9-5.9 15-18 MV: 44 MV: 91 MV: 277 2-9 Yr. 6.0-17.0 3.8-5.4 11-13 MV: 37 MV: 78 MV: 300 10 Yrs. 5.0-13.0 3.8-5.4 12-15 MV: 39 MV: 80 MV: 250 NOTE: * FOR ADULT BLACK MALES AND FEMALES, NORMAL WBC IS 2.9-7.7 K/ML * FOR ADULT BLACK MALES AND FEMALES, NORMAL RBC,HGB, AND HCT IS 5% LESS SOURCE FOR DATA: [employer] 1800 OPERATION MANUAL( AUTOMATED BLOOD COUNTS AND DIFF.) APPENDIX B-3 CHRONIC KIDNEY DISEASE STAGING PER NKF: MALE GFR INTERPRETATION: 20-49 YRS: >60 mL/min Normal 50-59 YRS: >56 mL/min Normal 60-69 YRS: >49 mL/min Normal 70-79 YRS: >42 mL/min Normal 80 and above >35 mL/min Normal FEMALE GRF INTERPRETATION: 20-39 YRS: >60 mL/min Normal 40-49 YRS: >58 mL/min Normal 50-59 YRS: >51 mL/min Normal 60-69 YRS: >45 mL/min Normal 70-79 YRS: >39 mL/min Normal 80 and above >32 mL/min NormalCLASSIFICATION CHOLESTEROL FOR ADULTS CHILDREN/ADOLESCENTS* DESIRABLE: <200 MG/DL <170 MG/DL BORDER-LINE HIGH RISK: 200-239 MG/DL 170-199 MG/DL HIGH RISK: >240 MG/DL >200 MG/DL CLASS. FOR PRIMARY LDL CHOL PREVENTION: LDL CHOL-CHILD/ADOLESCENTS* DESIRABLE: <130 MG/DL <110 MG/DL BORDERLINE-HIGH RISK: 130- 159 MG/DL 110-129 MG/DL HIGH RISK: >160 MG/DL >130 MG/DL *CHILDREN AND ADOLESCENTS REPRESENTS INDIVIDUALA AGED 2-19 YEARS EXCLUSIVE. Lym% 24.1 % 10.0-58.5 [facility] ([facility] NORMAL RANGES Age WBC RBC HGB HCT MCV PLT Adult M 4.1-10.9 4.20-6.30 12.0-18.0 37.0-51.0 80-97 140-440 Adult F 4.1-10.9 4.04-5.48 12.0-18.0 37.0-51.0 80-97 140-440 0 -1 Yr 5.0-20.0 3.9-5.9 15-18 MV: 44 MV: 91 MV: 277 2-9 Yr. 6.0-17.0 3.8-5.4 11-13 MV: 37 MV: 78 MV: 300 10 Yrs. 5.0-13.0 3.8-5.4 12-15 MV: 39 MV: 80 MV: 250 NOTE: * FOR ADULT BLACK MALES AND FEMALES, NORMAL WBC IS 2.9-7.7 K/ML * FOR ADULT BLACK MALES AND FEMALES, NORMAL RBC,HGB, AND HCT IS 5% LESS SOURCE FOR DATA: [employer] 1800 OPERATION MANUAL( AUTOMATED BLOOD COUNTS AND DIFF.) APPENDIX B-3 CHRONIC KIDNEY DISEASE STAGING PER NKF: MALE GFR INTERPRETATION: 20-49 YRS: >60 mL/min Normal 50-59 YRS: >56 mL/min Normal 60-69 YRS: >49 mL/min Normal 70-79 YRS: >42 mL/min Normal 80 and above >35 mL/min Normal FEMALE GRF INTERPRETATION: 20-39 YRS: >60 mL/min Normal 40-49 YRS: >58 mL/min Normal 50-59 YRS: >51 mL/min Normal 60-69 YRS: >45 mL/min Normal 70-79 YRS: >39 mL/min Normal 80 and above >32 mL/min NormalCLASSIFICATION CHOLESTEROL FOR ADULTS CHILDREN/ADOLESCENTS* DESIRABLE: <200 MG/DL <170 MG/DL BORDER-LINE HIGH RISK: 200-239 MG/DL 170-199 MG/DL HIGH RISK: >240 MG/DL >200 MG/DL CLASS. FOR PRIMARY LDL CHOL PREVENTION: LDL CHOL-CHILD/ADOLESCENTS* DESIRABLE: <130 MG/DL <110 MG/DL BORDERLINE-HIGH RISK: 130- 159 MG/DL 110-129 MG/DL HIGH RISK: >160 MG/DL >130 MG/DL *CHILDREN AND ADOLESCENTS REPRESENTS INDIVIDUALA AGED 2-19 YEARS EXCLUSIVE. Neut% 72.4 % 37.0-92.0 [facility] ([facility] NORMAL RANGES Age WBC RBC HGB HCT MCV PLT Adult M 4.1-10.9 4.20-6.30 12.0-18.0 37.0-51.0 80-97 140-440 Adult F 4.1-10.9 4.04-5.48 12.0-18.0 37.0-51.0 80-97 140-440 0 -1 Yr 5.0-20.0 3.9-5.9 15-18 MV: 44 MV: 91 MV: 277 2-9 Yr. 6.0-17.0 3.8-5.4 11-13 MV: 37 MV: 78 MV: 300 10 Yrs. 5.0-13.0 3.8-5.4 12-15 MV: 39 MV: 80 MV: 250 NOTE: * FOR ADULT BLACK MALES AND FEMALES, NORMAL WBC IS 2.9-7.7 K/ML * FOR ADULT BLACK MALES AND FEMALES, NORMAL RBC,HGB, AND HCT IS 5% LESS SOURCE FOR DATA: [employer] 1800 OPERATION MANUAL( AUTOMATED BLOOD COUNTS AND DIFF.) APPENDIX B-3 CHRONIC KIDNEY DISEASE STAGING PER NKF: MALE GFR INTERPRETATION: 20-49 YRS: >60 mL/min Normal 50-59 YRS: >56 mL/min Normal 60-69 YRS: >49 mL/min Normal 70-79 YRS: >42 mL/min Normal 80 and above >35 mL/min Normal FEMALE GRF INTERPRETATION: 20-39 YRS: >60 mL/min Normal 40-49 YRS: >58 mL/min Normal 50-59 YRS: >51 mL/min Normal 60-69 YRS: >45 mL/min Normal 70-79 YRS: >39 mL/min Normal 80 and above >32 mL/min NormalCLASSIFICATION CHOLESTEROL FOR ADULTS CHILDREN/ADOLESCENTS* DESIRABLE: <200 MG/DL <170 MG/DL BORDER-LINE HIGH RISK: 200-239 MG/DL 170-199 MG/DL HIGH RISK: >240 MG/DL >200 MG/DL CLASS. FOR PRIMARY LDL CHOL PREVENTION: LDL CHOL-CHILD/ADOLESCENTS* DESIRABLE: <130 MG/DL <110 MG/DL BORDERLINE-HIGH RISK: 130- 159 MG/DL 110-129 MG/DL HIGH RISK: >160 MG/DL >130 MG/DL *CHILDREN AND ADOLESCENTS REPRESENTS INDIVIDUALA AGED 2-19 YEARS EXCLUSIVE. Lym# 1.5 10E3/uL 0.6-4.1 [facility] ([facility] NORMAL RANGES Age WBC RBC HGB HCT MCV PLT Adult M 4.1-10.9 4.20-6.30 12.0-18.0 37.0-51.0 80-97 140-440 Adult F 4.1-10.9 4.04-5.48 12.0-18.0 37.0-51.0 80-97 140-440 0 -1 Yr 5.0-20.0 3.9-5.9 15-18 MV: 44 MV: 91 MV: 277 2-9 Yr. 6.0-17.0 3.8-5.4 11-13 MV: 37 MV: 78 MV: 300 10 Yrs. 5.0-13.0 3.8-5.4 12-15 MV: 39 MV: 80 MV: 250 NOTE: * FOR ADULT BLACK MALES AND FEMALES, NORMAL WBC IS 2.9-7.7 K/ML * FOR ADULT BLACK MALES AND FEMALES, NORMAL RBC,HGB, AND HCT IS 5% LESS SOURCE FOR DATA: MAHESH DYN 1800 OPERATION MANUAL( AUTOMATED BLOOD COUNTS AND DIFF.) APPENDIX B-3 CHRONIC KIDNEY DISEASE STAGING PER NKF: MALE GFR INTERPRETATION: 20-49 YRS: >60 mL/min Normal 50-59 YRS: >56 mL/min Normal 60-69 YRS: >49 mL/min Normal 70-79 YRS: >42 mL/min Normal 80 and above >35 mL/min Normal FEMALE GRF INTERPRETATION: 20-39 YRS: >60 mL/min Normal 40-49 YRS: >58 mL/min Normal 50-59 YRS: >51 mL/min Normal 60-69 YRS: >45 mL/min Normal 70-79 YRS: >39 mL/min Normal 80 and above >32 mL/min NormalCLASSIFICATION CHOLESTEROL FOR ADULTS CHILDREN/ADOLESCENTS* DESIRABLE: <200 MG/DL <170 MG/DL BORDER-LINE HIGH RISK: 200-239 MG/DL 170-199 MG/DL HIGH RISK: >240 MG/DL >200 MG/DL CLASS. FOR PRIMARY LDL CHOL PREVENTION: LDL CHOL-CHILD/ADOLESCENTS* DESIRABLE: <130 MG/DL <110 MG/DL BORDERLINE-HIGH RISK: 130- 159 MG/DL 110-129 MG/DL HIGH RISK: >160 MG/DL >130 MG/DL *CHILDREN AND ADOLESCENTS REPRESENTS INDIVIDUALA AGED 2-19 YEARS EXCLUSIVE. Neut# 4.5 % 2.0-7.8 [facility] ([facility] NORMAL RANGES Age WBC RBC HGB HCT MCV PLT Adult M 4.1-10.9 4.20-6.30 12.0-18.0 37.0-51.0 80-97 140-440 Adult F 4.1-10.9 4.04-5.48 12.0-18.0 37.0-51.0 80-97 140-440 0 -1 Yr 5.0-20.0 3.9-5.9 15-18 MV: 44 MV: 91 MV: 277 2-9 Yr. 6.0-17.0 3.8-5.4 11-13 MV: 37 MV: 78 MV: 300 10 Yrs. 5.0-13.0 3.8-5.4 12-15 MV: 39 MV: 80 MV: 250 NOTE: * FOR ADULT BLACK MALES AND FEMALES, NORMAL WBC IS 2.9-7.7 K/ML * FOR ADULT BLACK MALES AND FEMALES, NORMAL RBC,HGB, AND HCT IS 5% LESS SOURCE FOR DATA: [employer] 1800 OPERATION MANUAL( AUTOMATED BLOOD COUNTS AND DIFF.) APPENDIX B-3 CHRONIC KIDNEY DISEASE STAGING PER NKF: MALE GFR INTERPRETATION: 20-49 YRS: >60 mL/min Normal 50-59 YRS: >56 mL/min Normal 60-69 YRS: >49 mL/min Normal 70-79 YRS: >42 mL/min Normal 80 and above >35 mL/min Normal FEMALE GRF INTERPRETATION: 20-39 YRS: >60 mL/min Normal 40-49 YRS: >58 mL/min Normal 50-59 YRS: >51 mL/min Normal 60-69 YRS: >45 mL/min Normal 70-79 YRS: >39 mL/min Normal 80 and above >32 mL/min NormalCLASSIFICATION CHOLESTEROL FOR ADULTS CHILDREN/ADOLESCENTS* DESIRABLE: <200 MG/DL <170 MG/DL BORDER-LINE HIGH RISK: 200-239 MG/DL 170-199 MG/DL HIGH RISK: >240 MG/DL >200 MG/DL CLASS. FOR PRIMARY LDL CHOL PREVENTION: LDL CHOL-CHILD/ADOLESCENTS* DESIRABLE: <130 MG/DL <110 MG/DL BORDERLINE-HIGH RISK: 130- 159 MG/DL 110-129 MG/DL HIGH RISK: >160 MG/DL >130 MG/DL *CHILDREN AND ADOLESCENTS REPRESENTS INDIVIDUALA AGED 2-19 YEARS EXCLUSIVE. MXD# 0.2 10E3/uL 0.0-1.8 [facility] ([facility] NORMAL RANGES Age WBC RBC HGB HCT MCV PLT Adult M 4.1-10.9 4.20-6.30 12.0-18.0 37.0-51.0 80-97 140-440 Adult F 4.1-10.9 4.04-5.48 12.0-18.0 37.0-51.0 80-97 140-440 0 -1 Yr 5.0-20.0 3.9-5.9 15-18 MV: 44 MV: 91 MV: 277 2-9 Yr. 6.0-17.0 3.8-5.4 11-13 MV: 37 MV: 78 MV: 300 10 Yrs. 5.0-13.0 3.8-5.4 12-15 MV: 39 MV: 80 MV: 250 NOTE: * FOR ADULT BLACK MALES AND FEMALES, NORMAL WBC IS 2.9-7.7 K/ML * FOR ADULT BLACK MALES AND FEMALES, NORMAL RBC,HGB, AND HCT IS 5% LESS SOURCE FOR DATA: [employer]mob 1800 OPERATION MANUAL( AUTOMATED BLOOD COUNTS AND DIFF.) APPENDIX B-3 CHRONIC KIDNEY DISEASE STAGING PER NKF: MALE GFR INTERPRETATION: 20-49 YRS: >60 mL/min Normal 50-59 YRS: >56 mL/min Normal 60-69 YRS: >49 mL/min Normal 70-79 YRS: >42 mL/min Normal 80 and above >35 mL/min Normal FEMALE GRF INTERPRETATION: 20-39 YRS: >60 mL/min Normal 40-49 YRS: >58 mL/min Normal 50-59 YRS: >51 mL/min Normal 60-69 YRS: >45 mL/min Normal 70-79 YRS: >39 mL/min Normal 80 and above >32 mL/min NormalCLASSIFICATION CHOLESTEROL FOR ADULTS CHILDREN/ADOLESCENTS* DESIRABLE: <200 MG/DL <170 MG/DL BORDER-LINE HIGH RISK: 200-239 MG/DL 170-199 MG/DL HIGH RISK: >240 MG/DL >200 MG/DL CLASS. FOR PRIMARY LDL CHOL PREVENTION: LDL CHOL-CHILD/ADOLESCENTS* DESIRABLE: <130 MG/DL <110 MG/DL BORDERLINE-HIGH RISK: 130- 159 MG/DL 110-129 MG/DL HIGH RISK: >160 MG/DL >130 MG/DL *CHILDREN AND ADOLESCENTS REPRESENTS INDIVIDUALA AGED 2-19 YEARS EXCLUSIVE. MPV 11.7 fL 9.0-13.0 [facility] ([facility] NORMAL RANGES Age WBC RBC HGB HCT MCV PLT Adult M 4.1-10.9 4.20-6.30 12.0-18.0 37.0-51.0 80-97 140-440 Adult F 4.1-10.9 4.04-5.48 12.0-18.0 37.0-51.0 80-97 140-440 0 -1 Yr 5.0-20.0 3.9-5.9 15-18 MV: 44 MV: 91 MV: 277 2-9 Yr. 6.0-17.0 3.8-5.4 11-13 MV: 37 MV: 78 MV: 300 10 Yrs. 5.0-13.0 3.8-5.4 12-15 MV: 39 MV: 80 MV: 250 NOTE: * FOR ADULT BLACK MALES AND FEMALES, NORMAL WBC IS 2.9-7.7 K/ML * FOR ADULT BLACK MALES AND FEMALES, NORMAL RBC,HGB, AND HCT IS 5% LESS SOURCE FOR DATA: MAHESH DYN 1800 OPERATION MANUAL( AUTOMATED BLOOD COUNTS AND DIFF.) APPENDIX B-3 CHRONIC KIDNEY DISEASE STAGING PER NKF: MALE GFR INTERPRETATION: 20-49 YRS: >60 mL/min Normal 50-59 YRS: >56 mL/min Normal 60-69 YRS: >49 mL/min Normal 70-79 YRS: >42 mL/min Normal 80 and above >35 mL/min Normal FEMALE GRF INTERPRETATION: 20-39 YRS: >60 mL/min Normal 40-49 YRS: >58 mL/min Normal 50-59 YRS: >51 mL/min Normal 60-69 YRS: >45 mL/min Normal 70-79 YRS: >39 mL/min Normal 80 and above >32 mL/min NormalCLASSIFICATION CHOLESTEROL FOR ADULTS CHILDREN/ADOLESCENTS* DESIRABLE: <200 MG/DL <170 MG/DL BORDER-LINE HIGH RISK: 200-239 MG/DL 170-199 MG/DL HIGH RISK: >240 MG/DL >200 MG/DL CLASS. FOR PRIMARY LDL CHOL PREVENTION: LDL CHOL-CHILD/ADOLESCENTS* DESIRABLE: <130 MG/DL <110 MG/DL BORDERLINE-HIGH RISK: 130- 159 MG/DL 110-129 MG/DL HIGH RISK: >160 MG/DL >130 MG/DL *CHILDREN AND ADOLESCENTS REPRESENTS INDIVIDUALA AGED 2-19 YEARS EXCLUSIVE. ID Date Data Source [id number] 04/22/2020 12:00:00 AM EST [facility] Name Value Range Interpretation Code Description Data Arielle rce(s) Supporting Document(s) SARS coronavirus 2 RNA [Presence] in Res piratory specimen by ONIEL with probe detection [facility] This lab was ordered by Ramiro Leon and reported by [facility]. Procedure Social History Code Duration Value Status Description Data Source(s ) Smoking 03/26/2021 12:00:00 AM EDT Never Smoked A Pipe complet ed Never Smoked A Pipe [facility] ([facility]) Smoking 03/24/2021 12:00:00 AM EDT - 05/31/1967 12:00:00 AM EST Patient is a former smoker completed Patient is a former smoker [facility] ([facility]) Smoking 01/23/2021 10:39:58 PM EDT Ex-smoker (finding) complet ed Ex-smoker (finding) [facility] ([facility]) Vital Signs ID Date Data Source UNK Name Value Range Interpretation Code Description Data Source(s) Systolic blood pressure 130 mm[Hg] 130 mm[Hg] M [facility] ([facility]) Diastolic blood pressure 80 mm[Hg] 80 mm[Hg] [facility] ([facility]) Heart rate 57 /min 57 /min [facility] ([facility]) Oxygen saturation in Arterial blood by Pulse oximetry 97 % 97 % [facility] ([facility]) Body height 63 [in_i] 63 [in_i] [facility] ([facility]) 5'3" Body weight 184.00 [lb_av] 184.00 [lb_av] [facility] Body mass index (BMI) [Ratio] 32.6 kg/m2 32.6 k g/m2 [facility] ([facility]) [place] body weight 115 [lb_av] 115 [lb_av] [facility] Body weight 83.462 kg 83.462 kg [facility] ([facility]) Body surface area Derived from formula 1.87 m2 1.87 m2 [facility] ([facility]) Systolic blood pressure 183 mm[Hg] 183 mm[Hg] [facility] ([facility], [facility]) Diastolic blood pressure 74 mm[Hg] 74 mm[Hg] [facility] ([facility], [facility]) Heart rate 59 /min 59 /min [facility] ([facility], [facility]) Respiratory rate 14 /min 14 /min [facility] ( [facility]) Oxygen saturation in Arterial blood by Pulse oximetry 97 % 97 % [facility] ([facility]) Body temperature 96.0 [degF] 96.0 [degF] [facility] ([facility]) Body weight 182.00 [lb_av] 182.00 [lb_av] [facility] Body height 63 [in_i] 63 [in_i] [facility] ([facility], [facility]) 5'3" Body mass index (BMI) [Ratio] 32.2 kg/m2 32.2 k g/m2 [facility] ([facility], [facility]) Systolic blood pressure 195 mm[Hg] 195 mm[Hg] M [facility] ([facility], [facility]) Diastolic blood pressure 85 mm[Hg] 85 mm[Hg] [facility] ([facility], [facility]) Heart rate 69 /min 69 /min [facility] ([facility], [facility]) Respiratory rate 12 /min 12 /min [facility] ( [facility], [facility]) Oxygen saturation in Arterial blood by Pulse oximetry 99 % 99 % [facility] ([facility], [facility]) Body temperature 96.6 [degF] 96.6 [degF] [facility] ([facility], [facility]) Body weight 182.00 [lb_av] 182.00 [lb_av] [facility] ([facility], [facility]) Body height 63 [in_i] 63 [in_i] [facility] ([facility], [facility]) 5'3" Body mass index (BMI) [Ratio] 32.2 kg/m2 32.2 k g/m2 [facility] ([facility], [facility]) Systolic blood pressure 128 mm[Hg] 128 mm[Hg] M [facility] ([facility] Diastolic blood pressure 66 mm[Hg] 66 mm[Hg] [facility] ([facility] Body temperature 98.0 [degF] 98.0 [degF] [facility] ([facility] Heart rate 50 /min 50 /min [facility] ([facility] Body height 63.75 [in_i] 63.75 [in_i] [facility] ([facility] 5'3.75" Body weight 183.00 [lb_av] 183.00 [lb_av] [facility] ([facility] [place] body weight 115 [lb_av] 115 [lb_av] [facility] ([facility] Body mass index (BMI) [Ratio] 31.7 kg/m2 31.7 k g/m2 [facility] ([facility] Oxygen saturation in Arterial blood by Pulse oximetry 97 % 97 % [facility] ([facility] Respiratory rate 12 /min 12 /min [facility] ( [facility] Body weight 186.00 [lb_av] 186.00 [lb_av] [facility] ([facility] Body mass index (BMI) [Ratio] 32.2 kg/m2 32.2 k g/m2 [facility] ([facility] Oxygen saturation in Arterial blood by Pulse oximetry 97 % 97 % [facility] ([facility] [place] body weight 115 [lb_av] 115 [lb_av] [facility] ([facility] Systolic blood pressure 126 mm[Hg] 126 mm[Hg] M [facility] ([facility] Respiratory rate 12 /min 12 /min [facility] ( [facility] Body height 63.75 [in_i] 63.75 [in_i] [facility] ([facility] 5'3.75" Diastolic blood pressure 76 mm[Hg] 76 mm[Hg] [facility] ([facility] Body temperature 97.3 [degF] 97.3 [degF] [facility] ([facility] Heart rate 50 /min 50 /min [facility] ([facility] Systolic blood pressure 122 mm[Hg] 122 mm[Hg] M [facility] ([facility], ) Diastolic blood pressure 72 mm[Hg] 72 mm[Hg] [facility] ([facility], ) Heart rate 56 /min 56 /min [facility] ([facility], ) Oxygen saturation in Arterial blood by Pulse oximetry 99 % 99 % [facility] ([facility], ) Body temperature 96.5 [degF] 96.5 [degF] [facility] ([facility], ) Body surface area Derived from formula 1.89 m2 1.89 m2 [facility] ([facility]) Body height 63 [in_i] 63 [in_i] [facility] ([facility]) 5'3" Body weight 189.00 [lb_av] 189.00 [lb_av] [facility] Body mass index (BMI) [Ratio] 33.5 kg/m2 33.5 k g/m2 [facility] ([facility]) [place] body weight 115 [lb_av] 115 [lb_av] [facility] Body weight 85.730 kg 85.730 kg [facility] ([facility])
--- OUTSIDE RECORDS SUMMARY | 2021-04-16 11:34 | CCD ---
Author Author [facility] Organization [facility] Address Unknown Phone Unavailable Care Team Providers Care Porcelain Slusher Name Role Phone TRANGE, Elliott SIMONS PA [...] A KRISTYN PA Unavailable Unavailable LETTIERE, A KRITSYN PA [...] Unavailable Unavailable Diana DELAROSA MD Unavailable Unavailable Daina DELAROSA MD Unavailable Unavailable Diana DELAROSA MD [...] is protected by Article 27-F of the [facility] Public Health law. If you continue you may have access to information: Regarding HIV / AIDS; Provided by facilities licensed or operated by the [facility] Office of Mental Health; or Provided by the [facility] Office for People With Developmental Disabilities. If such information is present, then the following [facility] mandated warning applies: This information has been [...] law may result in a fine or senior living sentence or both. A general authorization for [...] PM EDT - 03/26/2021 02:26:00 PM EDT [facility] Office Visit Attender: MALINA Santo ry 02/12/2021 01:30:00 PM EDT [facility] ([facility] Outpatient Attender: KRISTYN terryy 02/04/2021 06:25:00 PM EDT [facility] ([facility]) Outpatient Attender: PEDRO DELAROSA MD [facility] 03/2021 10:00:00 AM EDT [facility] ([facility] Outpatient Attender: SY MORALES DPM PCConsultant: PEDRO DELAROSA MD 10/17/2020 03:31:00 PM EDT - 10/17/2020 03:31:00 PM EDT [facility] Outpatient Attender: SY MORALES DPM PCConsultant: PEDRO DELAROSA MD 09/09/2020 11:09:00 AM EDT - 09/09/2020 11:09:00 AM EDT [facility] Outpatient<td ID="encounterTypeDescripti onID0">1 Year Follow-Up</td><td>Yola Winters DO</td><td>Hugh Vogel MD [facility]</td><td>09/06/2020</td><td>7:34AM</td><td>9:15AM</td><td><content ID="encounterDiagnosisID0-0">Pseudophakia</content>, <content ID="encounterDiagnosisID0-1">Corneal Dystrophy Endothelial Cornea Guttata</content>, <content ID="encounterDiagnosisID0-2">Dry Eye Syndrome Both Eyes</content>, <content ID="encounterDiagnosisID0-3">Vitreous Disorders Degeneration</content>, <content ID="encounterDiagnosisID0-4">Drusen Right Eye</content></td> Attender: YOLA Ivey MD [facility] 09/06/2020 07:34:00 AM EDT - 09/06/2020 09:15:00 AM EDT Vitreous Disorders DegenerationPseudophakiaDrusen Right EyeCorneal Dystrophy Endothelial Cornea GuttataDry Eye Syndrome Both Eyes [facility] (Hugh Shepherd MD [facility]) Vitreous Disorders Degeneration Pseudophakia 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 Outpatient Attender: PEDRO DELAROSA MD [facility] 09/2020 09:00:00 AM EST [facility] ([facility] Immunizations Vaccine Date Status Description Data Source(s) COVID-19 VACCINE Pfizer 03/27/2021 12:00:00 AM EDT completed [facility] Vaccine Series Complete: YESThis Data wa s Submitted to [facility] Via [email or web address]. COVID-19 VACC, MRNA(PFIZER)/PF 03/27/2021 12:00:00 AM EDT completed [facility] COVID-19 VACCINE Pfizer 07/21/2020 12:00:00 AM EST completed [facility] Vaccine Series Complete: YESThis Data wa s Submitted to [facility] [email or web address]. COVID-19 VACCINE Pfizer 07/02/2020 12:00:00 AM EST completed [facility] Vaccine Series Complete: NOThis Data was Submitted to [facility] Via [email or web address]. VARICELLA-ZOSTER VIRUS GLYCOPROTEIN E,REC/AS01B ADJUVA NT/PF 03/23/2020 [...] Tendon/Ligament 10/17/2020 12:00:00 AM EDT completed [facility] ([facility]) Medication administered onsite Calcium 500 MG Oral Tablet Calcium 500 MG Oral Tablet 2020 12:00:00 AM EDT 1 active Calcium [facility] (Hugh Shepherd MD [facility]) Mesalamine 500 mg Oral Tablet Mesalamine 500 mg Oral Tablet 09/06/2020 12:00:00 AM EDT 1 active Mesalamine GREENW AY (Hugh Shepherd MD [facility]) Vitamin D2 1.25 MG Oral Tablet Vitamin D2 1.25 MG Oral Table t 09/06/2020 12:00:00 AM EDT 1 active Vitamin D2 [facility] (Hugh Shepherd MD [facility]) Bisoprolol Fumarate 5 MG / Hydrochlorothiazide 6.25 [...] 07/05/2020 12:00:00 AM EST ORAL active [facility] ([facility] 20 mg 06/21/2020 12:00:00 [...] 02/23/2020 12:00:00 AM EDT ORAL active [facility] ([facility] Calcium Carbonate 1250 MG Oral Tablet Calcium 02/23/2020 12:00:00 AM EDT ORAL completed [facility] ([facility] 20 mg 01/03/2020 12:00:00 [...] DAY SOLD: 03/26/2020 [facility] Calcium 600+D [id number] Oral Tablet Calcium 600+D [id number] Oral Tablet 12/16/2016 12:00:00 AM EDT 1 aborted Calcium 600+D [facility] (Hugh Shepherd MD [facility]) Insurance Providers Payer name Policy type / Coverage type Policy ID Covered libertarian ID Covered libertarian's relationship to ordoñez Policy Ordoñez Plan Information MEDICARE A [id number] Self [id number] N25 [facility] [id number] Self [id number] [place] Medicare Part B [id number] Self [id number] [facility] [employer] [id number] Self [id number] [employer] [place] Other 0 [id number] Self [address] [facility] Other 0 [id number] Self 0 MEDICARE PART A -O/P [id number] 18 [id number] SELF PAY ONLY [id number] SP [id number] [employer] [id number] SP [id number] [employer] [id number] SP [id number] ANSI-Commercial [id number] ANSI-Medicare Part B [id number] [employer] [id number] SP [id number] MEDICARE [id number] SP [id number] A SELF PAY ONLY [id number] SP [id number] [employer] [id number] SP [id number] SELF PAY UNAVAILABLE SP UNAVAILA BLE [employer] Medigap Part B [id number] Self Medicare Natl Gov't Servi Medicare Primary [id number] Self [employer] PPO S [id number] S [id number] MEDICARE P [id number] S [id number] A [employer] [id number] SP [id number] MEDICARE [id number] N25 [facility] [id number] 18 [id number] MEDICARE PART A [facility] [id number] 18 [id number] Problems, Conditions, and Diagnoses Code Display Name Description Problem Type Effective Dates Data Source(s) M7730 Calcaneal spur, unspecified foot Calcaneal spur, unspecified foot Diagnosis 03/26/2021 02:26:00 PM EDT [facility] M7672 Peroneal tendinitis, left leg Peroneal tendinitis, lef t leg Diagnosis 03/26/2021 02:26:00 PM EDT [facility] M7752 Other enthesopathy of left foot and ankl e Other enthesopathy of left foot and ankle Diagnosis 03/26/2021 02:26:00 PM EDT [facility] M722 Plantar fascial fibromatosis Plantar fascial fibromato sis Diagnosis 03/26/2021 02:26:00 PM EDT [facility] D38642 Pain in left foot Pain in left foot Diagnosis 03/26/2021 02:26:00 PM EDT [facility] 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 Diagnosis 07/11/2020 08:34:0 0 AM EST [facility] M72.2 Plantar fascial fibromatosis Plantar fascial fibromato sis Problem 09/09/2020 12:00:00 AM EDT [facility] ([facility]) M77.52 Bursitis of left foot Bursitis of left foot Problem 09/09/2020 12:00:00 AM EDT [facility] ([facility]) Surgeries/Procedures Procedure Description Date Indications Data Source(s) SIMPLE REPAIR SCALP/NECK/AX/GENIT/TRUNK 2.5CM/< 2020 12:00:00 AM EDT [facility] ([facility]) OFFICE OUTPATIENT NEW 30 MINUTES 02/04/2021 12:00:00 A M EDT [facility] ([facility], [facility]) OFFICE OUTPATIENT VISIT 25 MINUTES 01/08/2021 12:00:00 AM EDT [facility] ([facility] Inject Tendon/Ligament 10/17/2020 12:00:00 AM EDT [facility] ([facility]) Strapping Ankle/foot 10/17/2020 12:00:00 AM EDT [facility] ([facility]) OFFICE OUTPATIENT VISIT 10 MINUTES 10/17/2020 12:00:00 AM EDT [facility] ([facility]) Strapping Ankle/foot 09/09/2020 12:00:00 AM EDT [facility] ([facility]) Cataract surgery (procedure) History of cataract surge ry PCIOL OS 06/23/18, OD 06/30/18 - Dr. Winters 09/06/2020 12:00:00 AM EDT [facility] (Hugh Shepherd MD [facility]) Surgical / procedural history Biopsy of spot on lung 08/2019, right Ovary and fillopian tube removed 12/2019 Surgical / procedural history Biopsy of spot on lung 08/2019, right Ovary and fillopian tube removed 12/201909/06/2020 12:00:00 AM EDT [facility] (Hugh Shepherd MD [facility]) Intermediate Eye Exam Established Patient Intermediate Eye Exam Established Patient 09/06/2020 12:00:00 AM EDT [facility] ([facility] Elliott Shepherd MD [facility]) Results ID Date Data Source [id number] 04/15/2021 11:39:00 AM EST [facility] ([facility] Name Value Range Interpretation [...] [facility] ) ID Date Data Source [id number] 04/15/2021 11:39:00 AM EST [facility] ([facility] Name Value Range Interpretation [...] [facility] ID Date Data Source [id number] 04/15/2021 11:39:00 AM EST [facility] ([facility] Name Value Range Interpretation Code Description Data Arielle rce(s) Supporting Document(s) Phosphorus Level 3.7 mg/dL 2.5-4.9 Normal (applies to non-numeric results) [facility] ([facility] Albumin 3.5 GM/DL 3.2-5.2 Normal (applies to non-numeric resul ts) [facility] ([facility] ID Date Data Source [id number] 04/15/2021 11:39:00 AM EST [facility] ([facility] Name Value Range Interpretation [...] Little GFR Left</content>
<content>ESRD GFR <15 on FOOD SERVICE COUNTER CLERK</content>
<content></content> Sodium Level 138 meq/L 136-145 Normal [...] [facility] ID Date Data Source [id number] 04/15/2021 11:39:00 AM EST [facility] ([facility] Name Value Range Interpretation Code Description Data Arielle rce(s) Supporting Document(s) Erythrocyte sedimentation rate by Westergren method 32 mm/hr 0-30 Above high normal [facility] ([facility] ) ID Date Data Source [id number] 04/15/2021 11:39:00 AM EST [facility] ([facility] Name Value Range Interpretation Code Description Data Arielle rce(s) Supporting Document(s) White Blood Count 7.1 10 4.0-10.0 Normal (applies to non-numeri c results) [facility] ([facility] Red Blood Count [...] Normal (applies to n on-numeric results) [facility] ([facility] ID Date Data Source [id number] 01/27/2021 08:37:00 AM EDT [facility] ([facility] Name Value Range Interpretation Code Description Data Arielle rce(s) Supporting Document(s) Erythrocyte sedimentation rate by Westergren method 23 mm/hr 0-30 Normal (applies to non-numeric results) [facility] ([facility] C reactive protein [Mass/volume] in Serum or Plasma by High sensitivity method Laboratory test result 0.00-0.30 Normal (applies to non-numeric results) [facility] ([facility] ID Date Data Source [id number] 01/04/2021 08:42:00 AM EDT [facility] ([facility] Name Value Range Interpretation Code Description Data Arielle rce(s) Supporting Document(s) Triglycerides Level 76 mg/dL Normal (applies to non-nume chucky results) [facility] ([facility] Cholesterol Level 158 mg/dL Normal (applies to non-numeri c results) [facility] ([facility] HDL Cholesterol 59 mg/dL Normal (applies to non-numeric results) [facility] ([facility] LDL Cholesterol 84 mg/dL Normal (applies to non-numeric results) [facility] ([facility] Cholesterol Risk Ratio 2.677 Normal (applies to non-n umeric results) [facility] ([facility] Non-HDL-C 99 mg/dL Normal (applies to non-numeric resul ts) [facility] ([facility] ID Date Data Source [id number] 01/04/2021 08:42:00 AM EDT [facility] ([facility] Name Value Range Interpretation Code Description Data Arielle rce(s) Supporting Document(s) Glucose, Fasting 99 mg/dL 70-100 Normal (applies to non-numeric results) [facility] ([facility] Blood Urea Nitrogen 19 mg/dL 7-18 Above high normal [facility] ([facility] Creatinine For GFR 0.64 mg/dL 0.55-1.30 Normal (applies to non -numeric results) [facility] ([facility] Sodium Level 143 meq/L 136-145 Normal (applies to non-numeric res ults) [facility] ([facility] Glomerular Filtration Rate Laboratory test result Normal (applies to non- numeric results) [facility] ([facility] ) <content>Units are mL/min/1.73 m2</content>
<content></content>
<content>Chronic Kidney Disease Staging per NKF:</content>
<content></content>
<content>Stage I & II GFR >=60 Normal to Mildly Decreased</content>
<content>Stage III GFR 30- 59 Moderately Decreased</content>
<content>Stage IV GFR 15-29 Severely Decreased</content>
<content>Stage V GFR <15 Very Little GFR Left</content>
<content>ESRD GFR <15 on FOOD SERVICE COUNTER CLERK</content>
<content></content> Chloride Level 108 meq/L 98-107 Above [...] Normal (applies to non-numeric resul ts) [facility] ([facility] Bilirubin,Total 0.4 mg/dL 0.2-1.0 Normal (applies to non-numeric results) [facility] ([facility] Total Protein 6.4 GM/DL 6.4-8.2 Normal (applies to non-numeric re sults) [facility] ([facility] Albumin/Globulin Ratio 1.1 1.2-2.2 Below low normal [facility] ([facility] Albumin 3.4 GM/DL 3.2-5.2 Normal (applies to non-numeric resul ts) [facility] ([facility] ID Date Data Source [id number] 07/12/2020 09:35:00 AM [facility] [address] [place] [address] PHONE: [phone] FAX: [phone] Name .................. : SHANNAN STARR Jacob Acct Number.................. : [id number] ROOM. ................. : MR Number ................... : [id number] Stay type ............. : O/P Discharge Date......... ... : 07/11/20 Admit Date ......... : 07/11/20 Admit Phys .................... : WASHINGTON Amato Date of ....... : 1945 Family Phys ................... : WASHINGTON Amato Phone .................. : [phone] Age ................................ : 75 Film# .................. .:[id number] Sex ................................. : F Unsigned transcriptions are preliminary reports and do not represent a medical or legal document CT ABD & PELV W/O FOL W/IV/OR [id number] COMPLETE:07/11/20 12:39 BEM 4073 (REASON FOR ABDOMEN: [...] 14:38, Dictation Date: Page 1 of 2 [place] [address] PHONE: [phone] FAX: [phone] Name .................. : SHANNAN STARR Jacob Acct Number.................. : [id number] ROOM. ................. : MR Number ................... : [id number] Stay type ............. : O/P Discharge Date......... [...] CT ABD & PELV W/O FOL W/IV/OR [id number] COMPLETE:07/11/20 12:39 BEM 4073 (REASON FOR ABDOMEN: R ADRENAL MASS Copy for: WASHINGTON VASQUEZ via fax Copy for: 710 MED REC Page 2 of 2 Name Value Range Interpretation Code Description Data Arielle rce(s) Supporting Document(s) ID Date Data Source [id number] 07/05/2020 10:47:00 AM EST [facility] ([facility] [...] HCT IS 5% LESS SOURCE FOR DATA: [employer] 1800 OPERATION MANUAL( AUTOMATED BLOOD COUNTS AND [...] 2-19 YEARS EXCLUSIVE. Chol 159 mg/dL 0-200 [facility] ([facility] NORMAL RANGES [...] HCT IS 5% LESS SOURCE FOR DATA: [employer] 1800 OPERATION MANUAL( AUTOMATED BLOOD COUNTS AND [...] HCT IS 5% LESS SOURCE FOR DATA: [employer] 1800 OPERATION MANUAL( AUTOMATED BLOOD COUNTS AND [...] HCT IS 5% LESS SOURCE FOR DATA: [employer] 1800 OPERATION MANUAL( AUTOMATED BLOOD COUNTS AND [...] 2-19 YEARS EXCLUSIVE. Cho/HDL Ratio 2.6 CALC [facility] ([facility] NORMAL RANGES Age [...] HCT IS 5% LESS SOURCE FOR DATA: [employer] 1800 OPERATION MANUAL( AUTOMATED BLOOD COUNTS AND [...] 2-19 YEARS EXCLUSIVE. ID Date Data Source [id number] 07/05/2020 10:47:00 AM EST [facility] ([facility] Name Value Range Interpretation [...] HCT IS 5% LESS SOURCE FOR DATA: [employer] 1800 OPERATION MANUAL( AUTOMATED BLOOD COUNTS AND [...] 2-19 YEARS EXCLUSIVE. BUN 22 mg/dL 8-23 [facility] ([facility] NORMAL RANGES [...] HCT IS 5% LESS SOURCE FOR DATA: [employer] 1800 OPERATION MANUAL( AUTOMATED BLOOD COUNTS AND [...] 2-19 YEARS EXCLUSIVE. BUN/Creatinine Ratio 29.3 CALC [facility] ([facility] Practice [...] HCT IS 5% LESS SOURCE FOR DATA: [employer] 1800 OPERATION MANUAL( AUTOMATED BLOOD COUNTS [...] HCT IS 5% LESS SOURCE FOR DATA: [employer] 1800 OPERATION MANUAL( AUTOMATED BLOOD COUNTS AND [...] Na 137 mmol/L 136-145 [facility] ([facility] NORMAL RANGES Age WBC RBC [...] HCT IS 5% LESS SOURCE FOR DATA: [employer] 1800 OPERATION MANUAL( AUTOMATED BLOOD COUNTS AND [...] 2-19 YEARS EXCLUSIVE. CL 101.3 mmol/L 98.0-107.0 [facility] ([facility] NORMAL RANGES Age WBC RBC HGB [...] HCT IS 5% LESS SOURCE FOR DATA: [employer] 1800 OPERATION MANUAL( AUTOMATED BLOOD COUNTS AND [...] HCT IS 5% LESS SOURCE FOR DATA: [employer] 1800 OPERATION MANUAL( AUTOMATED BLOOD COUNTS AND [...] 2-19 YEARS EXCLUSIVE. CA 9.7 mg/dL 8.6-10.2 [facility] NORMAL RANGES [...] HCT IS 5% LESS SOURCE FOR DATA: [employer] 1800 OPERATION MANUAL( AUTOMATED BLOOD COUNTS AND [...] 2-19 YEARS EXCLUSIVE. Co2 26.2 mmol/L 22.0-29.0 [employer] ([facility] NORMAL RANGES Age [...] HCT IS 5% LESS SOURCE FOR DATA: [employer] 1800 OPERATION MANUAL( AUTOMATED BLOOD COUNTS AND [...] HCT IS 5% LESS SOURCE FOR DATA: [employer] 1800 OPERATION MANUAL( AUTOMATED BLOOD COUNTS AND [...] YEARS EXCLUSIVE. A/G Ratio 1.9 CALC [facility] NORMAL RANGES Age WBC [...] HCT IS 5% LESS SOURCE FOR DATA: [employer] 1800 OPERATION MANUAL( AUTOMATED BLOOD COUNTS AND [...] 2-19 YEARS EXCLUSIVE. Alb 4.4 g/dL 3.4-4.8 [facility] ([facility] NORMAL RANGES [...] HCT IS 5% LESS SOURCE FOR DATA: [employer] 1800 OPERATION MANUAL( AUTOMATED BLOOD COUNTS AND [...] HCT IS 5% LESS SOURCE FOR DATA: [employer] 1800 OPERATION MANUAL( AUTOMATED BLOOD COUNTS AND [...] YEARS EXCLUSIVE. Globulin 2.3 CALC [facility] ([facility] NORMAL RANGES Age WBC [...] HCT IS 5% LESS SOURCE FOR DATA: [employer] 1800 OPERATION MANUAL( AUTOMATED BLOOD COUNTS AND [...] 2-19 YEARS EXCLUSIVE. Alp 65.2 U/L 35-129 [facility] ([facility] NORMAL RANGES [...] HCT IS 5% LESS SOURCE FOR DATA: [employer] 1800 OPERATION MANUAL( AUTOMATED BLOOD COUNTS AND [...] HCT IS 5% LESS SOURCE FOR DATA: [employer] 1800 OPERATION MANUAL( AUTOMATED BLOOD COUNTS AND [...] HCT IS 5% LESS SOURCE FOR DATA: [employer] 1800 OPERATION MANUAL( AUTOMATED BLOOD COUNTS AND [...] 2-19 YEARS EXCLUSIVE. Tbili 0.34 mg/dL 0.0-1.2 [facility] ([facility] NORMAL RANGES [...] HCT IS 5% LESS SOURCE FOR DATA: [employer] 1800 OPERATION MANUAL( AUTOMATED BLOOD COUNTS AND [...] HCT IS 5% LESS SOURCE FOR DATA: [employer] 1800 OPERATION MANUAL( AUTOMATED BLOOD COUNTS AND [...] INDIVIDUALA AGED 2-19 YEARS EXCLUSIVE. eGFR Non-Afr. Kuwaiti 83 # [facility] ([facility] [...] HCT IS 5% LESS SOURCE FOR DATA: [employer] 1800 OPERATION MANUAL( AUTOMATED BLOOD COUNTS AND [...] 2-19 YEARS EXCLUSIVE. ID Date Data Source [id number] 07/05/2020 10:47:00 AM EST [facility] ([facility] Name Value Range Interpretation Code Description Data Arielle rce(s) Supporting Document(s) WBC 6.2 10E3/uL 4.1-10.9 BOB ([facility] NORMAL RANGES Age WBC RBC [...] HCT IS 5% LESS SOURCE FOR DATA: [employer] 1800 OPERATION MANUAL( AUTOMATED BLOOD COUNTS AND [...] HCT IS 5% LESS SOURCE FOR DATA: [employer] 1800 OPERATION MANUAL( AUTOMATED BLOOD COUNTS AND [...] HCT IS 5% LESS SOURCE FOR DATA: [employer] 1800 OPERATION MANUAL( AUTOMATED BLOOD COUNTS AND [...] 2-19 YEARS EXCLUSIVE. HGB 12.8 g/dL 12.0-18.0 [facility] ([facility] NORMAL RANGES [...] HCT IS 5% LESS SOURCE FOR DATA: [employer] 1800 OPERATION MANUAL( AUTOMATED BLOOD COUNTS AND [...] 2-19 YEARS EXCLUSIVE. MCH 30.9 pg 26.0-32.0 [facility] ([facility] NORMAL [...] HCT IS 5% LESS SOURCE FOR DATA: [employer] 1800 OPERATION MANUAL( AUTOMATED BLOOD COUNTS AND [...] HCT IS 5% LESS SOURCE FOR DATA: [employer] 1800 OPERATION MANUAL( AUTOMATED BLOOD COUNTS AND [...] YEARS EXCLUSIVE. MCV 93.0 fL 80.0-97.0 [facility] NORMAL RANGES Age WBC [...] HCT IS 5% LESS SOURCE FOR DATA: [employer] 1800 OPERATION MANUAL( AUTOMATED BLOOD COUNTS AND [...] 2-19 YEARS EXCLUSIVE. PLT 182 10E3/uL 140-440 [facility] ([facility] NORMAL RANGES Age [...] HCT IS 5% LESS SOURCE FOR DATA: [employer] 1800 OPERATION MANUAL( AUTOMATED BLOOD COUNTS AND [...] HCT IS 5% LESS SOURCE FOR DATA: [employer] 1800 OPERATION MANUAL( AUTOMATED BLOOD COUNTS AND [...] 2-19 YEARS EXCLUSIVE. MXD% 3.5 % 0.1-24.0 [facility] ([facility] NORMAL RANGES [...] HCT IS 5% LESS SOURCE FOR DATA: [employer] 1800 OPERATION MANUAL( AUTOMATED BLOOD COUNTS AND [...] 2-19 YEARS EXCLUSIVE. Lym% 24.1 % 10.0-58.5 [facility] ([facility] NORMAL RANGES [...] HCT IS 5% LESS SOURCE FOR DATA: [employer] 1800 OPERATION MANUAL( AUTOMATED BLOOD COUNTS AND [...] HCT IS 5% LESS SOURCE FOR DATA: [employer] OPERATION MANUAL( AUTOMATED BLOOD COUNTS AND [...] 2-19 YEARS EXCLUSIVE. Lym# 1.5 10E3/uL 0.6-4.1 [facility] ([facility] [facility] NORMAL RANGES Age [...] 2-19 YEARS EXCLUSIVE. Neut# 4.5 % 2.0-7.8 [facility] ([facility] NORMAL [...] HCT IS 5% LESS SOURCE FOR DATA: [employer] 1800 OPERATION MANUAL( AUTOMATED BLOOD COUNTS AND [...] 2-19 YEARS EXCLUSIVE. MXD# 0.2 10E3/uL 0.0-1.8 [facility] ([facility] NORMAL RANGES Age [...] HCT IS 5% LESS SOURCE FOR DATA: [employer] 1800 OPERATION MANUAL( AUTOMATED BLOOD COUNTS AND [...] 2-19 YEARS EXCLUSIVE. MPV 11.7 fL 9.0-13.0 [facility] ([facility] NORMAL [...] 2-19 YEARS EXCLUSIVE. ID Date Data Source [id number] 04/22/2020 12:00:00 AM EST [facility] Name Value Range Interpretation Code Description Data Arielle rce(s) Supporting Document(s) SARS coronavirus 2 RNA [Presence] in Res piratory specimen by ONIEL with probe detection [facility] This lab was ordered by Ramiro Leon and reported by [facility]. Procedure Social History Code Duration Value Status Description Data Source(s ) Smoking 03/26/2021 12:00:00 AM EDT Never Smoked A Pipe complet ed Never Smoked A Pipe [facility] ([facility]) Smoking 03/24/2021 12:00:00 AM EDT - 05/31/1967 12:00:00 AM EST Patient is a former smoker completed Patient is a former smoker [facility] ([facility]) Smoking 01/23/2021 10:39:58 PM EDT Ex-smoker (finding) complet ed Ex-smoker (finding) [facility] (Hugh Shepherd MD [facility]) Vital Signs ID Date Data Source UNK Name Value Range Interpretation Code Description Data Source(s) Systolic blood pressure 130 mm[Hg] 130 mm[Hg] M [facility] ([facility]) Diastolic blood pressure 80 mm[Hg] 80 mm[Hg] [facility] ([facility]) Heart rate 57 /min 57 /min [facility] ([facility]) Oxygen saturation in Arterial blood by Pulse oximetry 97 % 97 % [facility] ([facility]) Body height 63 [in_i] 63 [in_i] [facility] ([facility]) 5'3" Body weight 184.00 [lb_av] 184.00 [lb_av] [facility] Body mass index (BMI) [Ratio] 32.6 kg/m2 32.6 k g/m2 [facility] ([facility]) [place] body weight 115 [lb_av] 115 [lb_av] [facility] Body weight 83.462 kg 83.462 kg [facility] ([facility]) Body surface area Derived from formula 1.87 m2 1.87 m2 [facility] ([facility]) Systolic blood pressure 183 mm[Hg] 183 mm[Hg] [facility] ([facility], [facility]) Diastolic blood pressure 74 mm[Hg] 74 mm[Hg] [facility] ([facility], [facility]) Heart rate 59 /min 59 /min [facility] ([facility], [facility]) Respiratory rate 14 /min 14 /min [facility] ( [facility]) Oxygen saturation in Arterial blood by Pulse oximetry 97 % 97 % [facility] ([facility]) Body temperature 96.0 [degF] 96.0 [degF] [facility] ([facility]) Body weight 182.00 [lb_av] 182.00 [lb_av] [facility]) Body height 63 [in_i] 63 [in_i] [facility] ([facility], [facility]) 5'3" Body mass index (BMI) [Ratio] 32.2 kg/m2 32.2 k g/m2 [facility] ([facility], [facility]) Systolic blood pressure 195 mm[Hg] 195 mm[Hg] M [facility] ([facility], [facility]) Diastolic blood pressure 85 mm[Hg] 85 mm[Hg] [facility] ([facility], [facility]) Heart rate 69 /min 69 /min [facility] ([facility], [facility]) Respiratory rate 12 /min 12 /min [facility] ( [facility], [facility]) Oxygen saturation in Arterial blood by Pulse oximetry 99 % 99 % [facility] ([facility], [facility]) Body temperature 96.6 [degF] 96.6 [degF] [facility] ([facility], [facility]) Body weight 182.00 [lb_av] 182.00 [lb_av] [facility] T ([facility], [facility]) Body height 63 [in_i] 63 [in_i] [facility] ([facility], [facility]) 5'3" Body mass index (BMI) [Ratio] 32.2 kg/m2 32.2 k g/m2 [facility] ([facility], [facility]) Systolic blood pressure 128 mm[Hg] 128 mm[Hg] M [facility] ([facility] Diastolic blood pressure 66 mm[Hg] 66 mm[Hg] [facility] ([facility] Body temperature 98.0 [degF] 98.0 [degF] [facility] ([facility] Heart rate 50 /min 50 /min [facility] ([facility] Respiratory rate 12 /min 12 /min [facility] ( [facility] Body height 63.75 [in_i] 63.75 [in_i] [facility] ([facility] 5'3.75" Body weight 183.00 [lb_av] 183.00 [lb_av] [facility] ([facility] [place] body weight 115 [lb_av] 115 [lb_av] [facility] T ([facility] Body mass index (BMI) [Ratio] 31.7 kg/m2 31.7 k g/m2 [facility] ([facility] Oxygen saturation in Arterial blood by Pulse oximetry 97 % 97 % [facility] ([facility] Body weight 186.00 [lb_av] 186.00 [lb_av] [facility] T ([facility] [place] body weight 115 [lb_av] 115 [lb_av] [facility] ([facility] Body mass index (BMI) [Ratio] 32.2 kg/m2 32.2 k g/m2 [facility] ([facility] Oxygen saturation in Arterial blood by Pulse oximetry 97 % 97 % [facility] ([facility] Systolic blood pressure 126 mm[Hg] 126 mm[Hg] M [facility] ([facility] Diastolic blood pressure 76 mm[Hg] 76 mm[Hg] [facility] ([facility] Body temperature 97.3 [degF] 97.3 [degF] [facility] ([facility] Heart rate 50 /min 50 /min [facility] ([facility] Respiratory rate 12 /min 12 /min [facility] ( [facility] Body height 63.75 [in_i] 63.75 [in_i] [facility] ([facility] 5'3.75" Systolic blood pressure 122 mm[Hg] 122 mm[Hg] M [facility] ([facility], ) Diastolic blood pressure 72 mm[Hg] 72 mm[Hg] [facility] ([facility], ) Heart rate 56 /min 56 /min [facility] ([facility], ) Oxygen saturation in Arterial blood by Pulse oximetry 99 % 99 % [facility] ([facility], ) Body temperature 96.5 [degF] 96.5 [degF] [facility] ([facility], ) Body height 63 [in_i] 63 [in_i] [facility] ([facility]) 5'3" Body weight 189.00 [lb_av] 189.00 [lb_av] [facility]) Body mass index (BMI) [Ratio] 33.5 kg/m2 33.5 k g/m2 [facility] ([facility]) [place] body weight 115 [lb_av] 115 [lb_av] [facility] Body weight 85.730 kg 85.730 kg [facility] ([facility]) Body surface area Derived from formula 1.89 m2 1.89 m2 [facility] ([facility])
[2021-04-16 12:27] LABS: BASO % 0.4 % (0.0-1.0); EOS % 0.4 % (0.0-3.0); HEMATOCRIT 38.2 % (36.0-47.0); HEMOGLOBIN 12.6 g/dl (12.0-15.5); LYMPH # 1.1 10^3/uL (1.5-5.0); MEAN CORPUSCULAR HEMOGLOBIN 30.7 pg (27.0-33.0); MEAN CORPUSCULAR VOLUME 93.2 fl (80.0-96.0); MONO # 0.3 10^3/uL (0.0-0.8); MONO % 4.9 % (2.0-8.0); NEUTROPHILS # 5.3 10^3/uL (1.5-8.5); PLATELET COUNT, AUTOMATED 188 10^3/uL (150-450); WHITE BLOOD COUNT 6.8 10^3/uL (4.0-10.0)
[2021-04-16 12:40] LABS: INR 0.96; PROTHROMBIN TIME 13.2 SECONDS (12.7-14.5)
[2021-04-16 12:41] LABS: PARTIAL THROMBOPLASTIN TIME 33.8 SECONDS (25.9-37.0)
[2021-04-16 12:52] LABS: ALBUMIN 3.8 GM/DL (3.2-5.2); ALT/SGPT 23 U/L (12-78); BILIRUBIN,DIRECT 0.2 MG/DL (0.0-0.2); BILIRUBIN,TOTAL 0.5 MG/DL (0.2-1.0); BLOOD UREA NITROGEN 21 MG/DL (7-18); CARBON DIOXIDE LEVEL 29 MEQ/L (21-32); CHLORIDE LEVEL 101 MEQ/L (98-107); CREATININE FOR GFR 0.76 MG/DL (0.55-1.30); GLOMERULAR FILTRATION RATE > 60.0 (>39); GLUCOSE, FASTING 112 MG/DL (70-100); SODIUM LEVEL 136 MEQ/L (136-145)
[2021-04-16 13:21] VITALS: BP 137/61
[2021-04-18] MEDS ORDERED: OYST1TAB PO (09:02)
[2021-04-18] MEDS ORDERED: OMEP10CA78 PO (09:03)
[2021-04-18] MEDS ORDERED: D31000TA2 PO (09:03)
[2021-04-18] MEDS ORDERED: VITMTA PO (09:03)
== END 2021-04-16 13:23 | disposition home or self-care (01) ==
LOC: M ED 08:59
DX: K62.5 Hemorrhage of anus and rectum (principal); I10 Essential (primary) hypertension; K50.90 Crohn's disease, unspecified, without complications; Z88.0 Allergy status to penicillin; Z79.899 Other long term (current) drug therapy

== ENCOUNTER → 2021-04-18 | Outpatient (CLI) | payer MEDICARE, OTHER ==
[~2021-04-18] MED LIST changes: +D31000TA2 PO; +HOME MED LIST COMPLETE! XX SCH; +LIDOCAINE 1% MDV 20ML VIAL As Ordered ONE; +OMEP10CA78 PO; +OYST1TAB PO; +VITMTA PO
[2021-04-18 08:25] VITALS: BP 170/71
--- NOTE | 2021-04-18 15:41 | REP ---
INDICATION: HARITHA NODULE. COMPARISON: None. TECHNIQUE: The procedure was performed under the direct supervision of Dr. Mas. The patient has a history of a 1.7 x 1.2 x 1.3 cm irregular pleural based nodule in the left upper lobe abutting the major fissure seen on a previous CT scan dated 03/17/2021. The risks and benefits of the procedure were explained to the patient and informed consent was obtained. Preliminary images demonstrate that the nodule had gotten smaller. The images were reviewed with Dr. Mas. It was felt that this may be a resolving infectious process and biopsy was not warranted. These findings were relayed to Dr. Boogie at the time of the procedure. FINDINGS: None IMPRESSION: Attempted left lung biopsy, however, the nodule had gotten smaller and no biopsy was performed. <Electronically signed by Allan Duque > 04/18/21 151 <Electronically signed by Jose Mas > 04/18/21 1371
== END ==
LOC: M IRPRO 08:13
PROVIDERS: ATTEND Internal Medicine Pulmonary Disease
DX: R91.8 Other nonspecific abnormal finding of lung field (principal); Z53.8 Procedure and treatment not carried out for other reasons

== ENCOUNTER → 2021-07-15 | Outpatient (CLI) | payer MEDICARE, OTHER ==
[~2021-07-15] MED LIST changes: +BISO1TAB18 PO; -BISO5TAB2 PO; -HOME MED LIST COMPLETE! XX SCH; -LIDOCAINE 1% MDV 20ML VIAL As Ordered ONE; +OMEP-173 PO; -OMEP-218 PO; -OMEP10CA78 PO; +OMEP1CAP71 PO
== END ==
LOC: M RAD 12:53
PROVIDERS: ATTEND Internal Medicine Pulmonary Disease
DX: R91.1 Solitary pulmonary nodule (principal)

== ENCOUNTER → 2021-08-13 | Outpatient (REF) | payer MEDICARE, OTHER ==
[~2021-08-13] MED LIST changes: -D31000TA2 PO; +VITA100093 PO
== END ==
LOC: M PLALAB 11:37
PROVIDERS: ATTEND Specialist
DX: Z01.419 Encounter for gynecological examination (general) (routine) without abnormal findings (principal); R87.615 Unsatisfactory cytologic smear of cervix
CPT/HCPCS: 87624; G0123

== ENCOUNTER → 2021-08-13 | Outpatient (CLI) | payer MEDICARE, OTHER | LOC: M WHC 10:56 | PROVIDERS: ATTEND Specialist | DX: Z12.31 Encounter for screening mammogram for malignant neoplasm of breast (principal); R92.1 Mammographic calcification found on diagnostic imaging of breast; R92.8 Other abnormal and inconclusive findings on diagnostic imaging of breast ==

== ENCOUNTER → 2021-08-18 | Outpatient (CLI) | payer MEDICARE, OTHER ==
[~2021-08-18] MED LIST changes: +LIAL1.2T PO
== END ==
LOC: M PLARAD 11:15
PROVIDERS: ATTEND Internal Medicine Pulmonary Disease
DX: R91.8 Other nonspecific abnormal finding of lung field (principal)
CPT/HCPCS: 78815; A9552

== ENCOUNTER → 2021-08-26 | Outpatient (CLI) | payer MEDICARE, OTHER ==
[~2021-08-26] MED LIST changes: -LIAL1.2T PO
== END ==
LOC: M WHC 09:52
PROVIDERS: ATTEND Specialist
DX: R92.8 Other abnormal and inconclusive findings on diagnostic imaging of breast (principal); Z78.0 Asymptomatic menopausal state; Z87.891 Personal history of nicotine dependence
CPT/HCPCS: 77065; G0279

== ENCOUNTER → 2021-09-10 | Outpatient (CLI) | payer MEDICARE, OTHER | LOC: M RAD 16:05 | PROVIDERS: ATTEND Internal Medicine Pulmonary Disease | DX: R91.8 Other nonspecific abnormal finding of lung field (principal) ==

== ENCOUNTER → 2021-09-26 | Outpatient (CLI) | payer MEDICARE, OTHER ==
[~2021-09-26] MED LIST changes: +LIAL1.2T PO
== END ==
LOC: M LABSMTC 10:15
PROVIDERS: ATTEND Anesthesiology
DX: Z01.812 Encounter for preprocedural laboratory examination (principal); Z20.822 Contact with and (suspected) exposure to COVID-19

== ENCOUNTER 2021-10-01 07:27 | Day surgery (SDC) | payer MEDICARE, OTHER ==
[~2021-10-01] VITALS: Ht 160 cm; Wt 82.1 kg
[~2021-10-01 07:27] MED LIST changes: +ALBUTEROL SULFATE 2.5 MG/0.5 ML INH NEB SOLN INH ONE; +LIDOCAINE 1% MDV 20ML VIAL SQ PRN; +LIDOCAINE 4% INJ 5ML AMP INH ONE; +LR 1,000 ML IV ONE
[2021-10-01] MEDS ORDERED: LIDOCAINE 2% 100MG/5ML SDV (FOR ANES.) As Ordered ONE (08:26)
[2021-10-01] MEDS ORDERED: ONDANSETRON 4MG/2ML VIAL As Ordered ONE (08:26)
[2021-10-01] MEDS ORDERED: dexameTHASONE 4 MG/ML 1ML VIAL (J1100 PER 1MG) As Ordered ONE (08:26)
[2021-10-01] MEDS ORDERED: fentaNYL 100 MCG/2 ML INJECTION As Ordered ONE (08:26)
[2021-10-01] MEDS ORDERED: METOCLOPRAMIDE INJ 10MG/2ML VIAL (J2765 PER 1) As Ordered ONE (08:26)
[2021-10-01] MEDS ORDERED: propofoL 200 MG/20 ML VIAL As Ordered ONE (08:26)
[2021-10-01] MEDS ORDERED: ROCURONIUM BROMIDE 50 MG/5 ML VIAL As Ordered ONE (08:55)
[2021-10-01] MEDS ORDERED: CETACAINE SPRAY 5GM As Ordered ONE ×2 (09:00→11:34)
[2021-10-01] MEDS ORDERED: EPINEPHrine 1MG/10ML SYRINGE 1.5IN As Ordered ONE (09:00)
[2021-10-01] MEDS ORDERED: LIDOCAINE VISCOUS 2% SOLN 15ML UDC As Ordered ONE (09:01)
[2021-10-01] MEDS ORDERED: SUGAMMADEX SODIUM 500 MG/5 ML VIAL (BRIDION) As Ordered ONE (09:44)
[2021-10-01] MEDS ORDERED: VASOPRESSIN INJ 20 UNITS/ML VIAL As Ordered ONE (10:35)
[2021-10-01] MEDS ORDERED: THROMBIN SOLN 5,000 UNITS VIAL As Ordered ONE (10:45)
[2021-10-01] MEDS ORDERED: LR 1,000 ML IV SCH (12:40)
[2021-10-01] MEDS ORDERED: ONDANSETRON 4MG/2ML VIAL IV PRN (12:40)
[2021-10-01] MEDS ORDERED: HYDROMORPHONE HCL 0.5 MG/ 0.5 ML SYRINGE (J1170 PER 1) IV PRN (12:40)
[2021-10-01] MEDS ORDERED: fentaNYL 100 MCG/2 ML INJECTION IV PRN (12:40)
[2021-10-01 14:00] VITALS: BP 165/77
== END 2021-10-01 14:04 | disposition home or self-care (01) ==
LOC: M SDC 07:27
PROVIDERS: ATTEND Internal Medicine Pulmonary Disease
DX: R91.8 Other nonspecific abnormal finding of lung field (principal); I10 Essential (primary) hypertension; E78.00 Pure hypercholesterolemia, unspecified; K50.90 Crohn's disease, unspecified, without complications; Z87.19 Personal history of other diseases of the digestive system; K21.9 Gastro-esophageal reflux disease without esophagitis; M19.041 Primary osteoarthritis, right hand; M19.042 Primary osteoarthritis, left hand; N83.209 Unspecified ovarian cyst, unspecified side; Z88.0 Allergy status to penicillin; Z88.8 Allergy status to other drugs, medicaments and biological substances; Z79.899 Other long term (current) drug therapy
CPT/HCPCS: 31624; 31627; 31628; 31654; 71045; 76000; 88305; 93005; J0171; J2405; J2765; J3010; S2900

== ENCOUNTER 2021-10-13 12:44 | Emergency (ER) | payer MEDICARE, OTHER ==
[~2021-10-13] VITALS: Ht 160 cm; Wt 80.6 kg
[~2021-10-13 12:44] MED LIST changes: -ALBUTEROL SULFATE 2.5 MG/0.5 ML INH NEB SOLN INH ONE; -LIDOCAINE 1% MDV 20ML VIAL SQ PRN; -LIDOCAINE 4% INJ 5ML AMP INH ONE; -LR 1,000 ML IV ONE
[2021-10-13 19:55] LABS: BASO % 0.2 % (0.0-1.0); EOS # 0.1 10^3/uL (0.0-0.5); EOS % 2.5 % (0.0-3.0); HEMATOCRIT 37.2 % (36.0-47.0); HEMOGLOBIN 12.1 g/dl (12.0-15.5); LYMPH # 1.2 10^3/uL (1.5-5.0); LYMPH % 21.5 % (24.0-44.0); MEAN CORPUSCULAR HEMOGLOBIN 30.2 pg (27.0-33.0); MEAN CORPUSCULAR HGB CONC 32.5 g/dl (32.0-36.5); MEAN CORPUSCULAR VOLUME 92.8 fl (80.0-96.0); MONO # 0.5 10^3/uL (0.0-0.8); MONO % 8.2 % (2.0-8.0); NEUTROPHILS # 3.8 10^3/uL (1.5-8.5); NEUTROPHILS % 67.2 % (36.0-66.0); PLATELET COUNT, AUTOMATED 265 10^3/uL (150-450); RED BLOOD COUNT 4.01 10^6/uL (4.00-5.40); WHITE BLOOD COUNT 5.6 10^3/uL (4.0-10.0)
[2021-10-13 20:44] LABS: ERYTHROCYTE SEDIMENTATION RATE 52 mm/hr (0-30)
[2021-10-13 21:23] LABS: PROTHROMBIN TIME 13.6 SECONDS (12.7-14.5)
[2021-10-13 21:24] LABS: PARTIAL THROMBOPLASTIN TIME 35.3 SECONDS (25.9-37.0)
[2021-10-13 22:02] VITALS: BP 136/85
== END 2021-10-13 22:03 | disposition home or self-care (01) ==
LOC: M ED 12:44
DX: R05.9 Cough, unspecified (principal); R04.2 Hemoptysis; I10 Essential (primary) hypertension; E78.5 Hyperlipidemia, unspecified; K50.10 Crohn's disease of large intestine without complications; R91.8 Other nonspecific abnormal finding of lung field; Z87.891 Personal history of nicotine dependence; Z88.0 Allergy status to penicillin; Z88.8 Allergy status to other drugs, medicaments and biological substances; Z79.899 Other long term (current) drug therapy

== ENCOUNTER → 2021-10-15 | Outpatient (REF) | payer MEDICARE, OTHER | LOC: M LAB REF 12:58 | PROVIDERS: ATTEND Nurse Practitioner Adult Health | DX: J47.9 Bronchiectasis, uncomplicated (principal) ==

== ENCOUNTER → 2021-11-06 | Outpatient (CLI) | payer MEDICARE, OTHER | LOC: M PLAIMG 10:55 | PROVIDERS: ATTEND Internal Medicine Pulmonary Disease | DX: R91.8 Other nonspecific abnormal finding of lung field (principal) ==

== ENCOUNTER → 2021-12-12 | Outpatient (CLI) | payer MEDICARE, OTHER ==
[2021-12-12 15:59] LABS: HEMATOCRIT 37.9 % (36.0-47.0); HEMOGLOBIN 12.4 g/dl (12.0-15.5); MEAN CORPUSCULAR HEMOGLOBIN 30.2 pg (27.0-33.0); MEAN CORPUSCULAR HGB CONC 32.7 g/dl (32.0-36.5); MEAN CORPUSCULAR VOLUME 92.2 fl (80.0-96.0); PLATELET COUNT, AUTOMATED 192 10^3/uL (150-450); RED BLOOD COUNT 4.11 10^6/uL (4.00-5.40); WHITE BLOOD COUNT 7.5 10^3/uL (4.0-10.0)
[2021-12-12 16:39] LABS: ALBUMIN 3.8 GM/DL (3.2-5.2); ALT/SGPT 29 U/L (12-78); BILIRUBIN,DIRECT 0.2 MG/DL (0.0-0.2); BILIRUBIN,TOTAL 0.4 MG/DL (0.2-1.0); BLOOD UREA NITROGEN 22 MG/DL (7-18); CALCIUM LEVEL 9.7 MG/DL (8.8-10.2); CARBON DIOXIDE LEVEL 29 MEQ/L (21-32); CHLORIDE LEVEL 103 MEQ/L (98-107); CREATININE FOR GFR 0.81 MG/DL (0.55-1.30); FERRITIN 29 NG/ML (8-252); GLOMERULAR FILTRATION RATE > 60.0 (>39); GLUCOSE, FASTING 165 MG/DL (70-100); IRON (FE) 75 UG/DL (50-170); PERCENT SATURATION 19.3 % (13.2-45.0); POTASSIUM SERUM 4.3 MEQ/L (3.5-5.1); SODIUM LEVEL 140 MEQ/L (136-145); TOTAL IRON BINDING CAPACITY 389 UG/DL (250-450)
[2021-12-12 16:44] LABS: ERYTHROCYTE SEDIMENTATION RATE 8 mm/hr (0-30)
[2021-12-12 17:14] LABS: TOTAL 25(OH) VITAMIN D 54.9 NG/ML (30.0-100.0); VITAMIN B12 LEVEL 537 PG/ML (247-911)
== END ==
LOC: M PLALAB 13:38
PROVIDERS: ATTEND Physician Assistant Surgical
DX: K50.10 Crohn's disease of large intestine without complications (principal); K21.9 Gastro-esophageal reflux disease without esophagitis

== ENCOUNTER → 2021-12-15 | Outpatient (REF) | payer MEDICARE, OTHER | LOC: M LAB REF 12:41 | PROVIDERS: ATTEND Physician Assistant Surgical | DX: K50.10 Crohn's disease of large intestine without complications (principal); K21.9 Gastro-esophageal reflux disease without esophagitis ==

== ENCOUNTER → 2022-01-09 | Outpatient (CLI) | payer MEDICARE, OTHER ==
[~2022-01-09] MED LIST changes: +FISH10005 PO; -FISH7.5C PO
[2022-01-09 13:26] LABS: ALBUMIN 3.6 GM/DL (3.2-5.2); ALT/SGPT 24 U/L (12-78); BILIRUBIN,TOTAL 0.4 MG/DL (0.2-1.0); BLOOD UREA NITROGEN 15 MG/DL (7-18); CALCIUM LEVEL 9.2 MG/DL (8.8-10.2); CARBON DIOXIDE LEVEL 32 MEQ/L (21-32); CHLORIDE LEVEL 105 MEQ/L (98-107); CHOLESTEROL LEVEL 162 MG/DL (<200); CHOLESTEROL RISK RATIO 2.571 (<5); CREATININE FOR GFR 0.78 MG/DL (0.55-1.30); GLOMERULAR FILTRATION RATE > 60.0 (>39); GLUCOSE, FASTING 105 MG/DL (70-100); HDL CHOLESTEROL 63 MG/DL (>40); LDL CHOLESTEROL 81 MG/DL (<100); NON-HDL-C 99 MG/DL; SODIUM LEVEL 141 MEQ/L (136-145); TRIGLYCERIDES LEVEL 90 MG/DL (<150)
== END ==
LOC: M WUC 09:42
PROVIDERS: ATTEND Internal Medicine
DX: E78.5 Hyperlipidemia, unspecified (principal)

== ENCOUNTER → 2022-01-12 | Outpatient (CLI) | payer MEDICARE, OTHER | LOC: M PLAIMG 10:55 | PROVIDERS: ATTEND Otolaryngology | DX: J32.4 Chronic pansinusitis (principal) ==

== ENCOUNTER → 2022-02-09 | Outpatient (CLI) | payer MEDICARE, OTHER | LOC: M WHC 08:05 | PROVIDERS: ATTEND Internal Medicine | DX: M81.0 Age-related osteoporosis without current pathological fracture (principal); M85.851 Other specified disorders of bone density and structure, right thigh; M85.852 Other specified disorders of bone density and structure, left thigh ==

== ENCOUNTER → 2022-02-11 | Outpatient (REF) | payer MEDICARE, OTHER | LOC: M LAB REF 15:07 | PROVIDERS: ATTEND Physician Assistant Surgical | DX: K50.10 Crohn's disease of large intestine without complications (principal); K21.9 Gastro-esophageal reflux disease without esophagitis ==

== ENCOUNTER → 2022-07-08 | Outpatient (CLI) | payer MEDICARE, OTHER ==
[2022-07-08 11:22] LABS: ALBUMIN 3.4 G/DL (3.2-5.2); ALKALINE PHOSPHATASE 77 U/L (46-116); ALT/SGPT 21 U/L (7.0-40); AST/SGOT 27 U/L (<34); BILIRUBIN,TOTAL 0.3 MG/DL (0.3-1.2); BLOOD UREA NITROGEN 15 MG/DL (9-23); CALCIUM LEVEL 9.1 MG/DL (8.3-10.6); CARBON DIOXIDE LEVEL 31 MMOL/L (20-31); CHLORIDE LEVEL 105 MMOL/L (98-107); CHOLESTEROL LEVEL 146 MG/DL (<200); CHOLESTEROL RISK RATIO 2.73 (<5); GLOMERULAR FILTRATION RATE > 60.0 (>39); GLUCOSE, FASTING 95 MG/DL (74-106); HDL CHOLESTEROL 53.4 MG/DL (>40); NON-HDL-C 93 MG/DL; POTASSIUM SERUM 4.6 MMOL/L (3.5-5.1); SODIUM LEVEL 139 MMOL/L (136-145); TOTAL PROTEIN 6.1 G/DL (5.7-8.2); TRIGLYCERIDES LEVEL 93 MG/DL (<150)
== END ==
LOC: M PLALAB 08:13
PROVIDERS: ATTEND Internal Medicine
DX: I10 Essential (primary) hypertension (principal); E78.5 Hyperlipidemia, unspecified

== ENCOUNTER → 2022-07-17 | Outpatient (CLI) | payer MEDICARE, OTHER | LOC: M PLAIMG 07-16 12:58 | PROVIDERS: ATTEND Physician Assistant Surgical | DX: R19.4 Change in bowel habit (principal) ==

== ENCOUNTER → 2022-07-27 | Outpatient (REF) | payer MEDICARE, OTHER | LOC: M LAB REF 09:58 | PROVIDERS: ATTEND Physician Assistant Surgical | DX: R19.4 Change in bowel habit (principal); K50.113 Crohn's disease of large intestine with fistula; K62.89 Other specified diseases of anus and rectum; K64.9 Unspecified hemorrhoids ==

== ENCOUNTER → 2022-10-01 | Outpatient (REF) | payer MEDICARE, OTHER | LOC: M LAB REF 12:59 | PROVIDERS: ATTEND Physician Assistant Surgical | DX: K62.89 Other specified diseases of anus and rectum (principal); K64.9 Unspecified hemorrhoids; K50.10 Crohn's disease of large intestine without complications; K60.3 Anal fistula ==

== ENCOUNTER → 2022-10-19 | Outpatient (CLI) | payer MEDICARE, OTHER ==
[2022-10-19 11:44] LABS: HEMATOCRIT 37.4 % (36.0-47.0); HEMOGLOBIN 12.2 g/dl (12.0-15.5); MEAN CORPUSCULAR HEMOGLOBIN 30.7 pg (27.0-33.0); MEAN CORPUSCULAR HGB CONC 32.6 g/dl (32.0-36.5); PLATELET COUNT, AUTOMATED 259 10^3/uL (150-450); RED BLOOD COUNT 3.98 10^6/uL (4.00-5.40); WHITE BLOOD COUNT 5.4 10^3/uL (4.0-10.0)
[2022-10-19 12:13] LABS: FERRITIN 42.3 NG/ML (7.3-270.7); HEPATITIS B SURFACE ANTIBODY NEGATIVE (POSITIVE)
[2022-10-19 12:14] LABS: TOTAL 25(OH) VITAMIN D 53.4 NG/ML (20.0-100.0)
[2022-10-19 12:15] LABS: ALBUMIN 3.1 G/DL (3.2-5.2); ALKALINE PHOSPHATASE 70 U/L (46-116); ALT/SGPT 25 U/L (7.0-40); AST/SGOT 21 U/L (<34); BILIRUBIN,DIRECT < 0.1 MG/DL (<0.4); BILIRUBIN,TOTAL 0.3 MG/DL (0.3-1.2); BLOOD UREA NITROGEN 19 MG/DL (9-23); CARBON DIOXIDE LEVEL 30 MMOL/L (20-31); CHLORIDE LEVEL 106 MMOL/L (98-107); GLOMERULAR FILTRATION RATE > 60.0 (>39); GLUCOSE, FASTING 107 MG/DL (74-106); IRON (FE) 50 UG/DL (50-170); PERCENT SATURATION 16.9 % (13.2-45.0); POTASSIUM SERUM 4.4 MMOL/L (3.5-5.1); SODIUM LEVEL 141 MMOL/L (136-145); TOTAL IRON BINDING CAPACITY 295 UG/DL (250-425); TOTAL PROTEIN 6.1 G/DL (5.7-8.2)
[2022-10-19 12:16] LABS: VITAMIN B12 LEVEL 431 PG/ML (211-911)
[2022-10-19 12:25] LABS: HEPATITIS B SURFACE ANTIGEN NEGATIVE (NEGATIVE)
[2022-10-19 12:47] LABS: HEPATITIS B CORE ANTIBODY IGM NEGATIVE (NEGATIVE)
== END ==
LOC: M PLALAB 08:15
PROVIDERS: ATTEND Physician Assistant Surgical
DX: K60.3 Anal fistula (principal)

== ENCOUNTER → 2022-11-17 | Outpatient (CLI) | payer MEDICARE, OTHER | LOC: M PLAIMG 09:04 | PROVIDERS: ATTEND Internal Medicine Pulmonary Disease | DX: R91.8 Other nonspecific abnormal finding of lung field (principal) ==

== ENCOUNTER 2022-11-19 09:55 | Outpatient (CLI) | payer MEDICARE, OTHER ==
[~2022-11-19] VITALS: Ht 160 cm; Wt 82.0 kg
[2022-11-19 10:15] VITALS: O2SAT 97
[2022-11-19] MEDS ORDERED: NS 1,000 ML IV SCH (10:30)
[2022-11-19] MEDS ORDERED: inFLIXimab INJECTION 400 MG in NS 210 ML IV ONE (10:30)
[2022-11-19 11:15] VITALS: BP 138/70; O2SAT 100
[2022-11-19 11:30] VITALS: BP 158/67; O2SAT 98
[2022-11-19 12:00] VITALS: BP 157/68; O2SAT 98
[2022-11-19 12:50] VITALS: BP 149/65; O2SAT 97
== END 2022-11-19 13:05 | disposition home or self-care (01) ==
LOC: M INFU 09:55
PROVIDERS: ATTEND Internal Medicine Gastroenterology
DX: K50.90 Crohn's disease, unspecified, without complications (principal); Z88.0 Allergy status to penicillin; Z88.8 Allergy status to other drugs, medicaments and biological substances
CPT/HCPCS: 96413; 96415; J1745

== ENCOUNTER 2022-12-03 09:50 | Outpatient (CLI) | payer MEDICARE, OTHER ==
[2022-12-03 10:30] VITALS: BP 164/68; O2SAT 98
[2022-12-03] MEDS ORDERED: inFLIXimab INJECTION 400 MG in NS 210 ML IV ONE (10:30)
[2022-12-03] MEDS ORDERED: NS 1,000 ML IV SCH (10:30)
[2022-12-03 10:45] VITALS: BP 198/84; O2SAT 98
[2022-12-03 11:00] VITALS: BP 189/83; O2SAT 99
[2022-12-03 11:15] VITALS: BP 175/72; O2SAT 97
[2022-12-03 11:30] VITALS: BP 182/76; O2SAT 97
[2022-12-03 12:00] VITALS: BP 178/76; O2SAT 97
== END 2022-12-03 12:40 ==
LOC: M INFU 09:50
PROVIDERS: ATTEND Internal Medicine Gastroenterology
DX: K50.90 Crohn's disease, unspecified, without complications (principal); Z88.0 Allergy status to penicillin; Z88.8 Allergy status to other drugs, medicaments and biological substances
CPT/HCPCS: 96413; 96415; J1745

== ENCOUNTER → 2022-12-22 | Outpatient (REF) | payer MEDICARE, OTHER ==
[~2022-12-22] MED LIST changes: +INFL10VL IV
== END ==
LOC: M SFHCWAGY 13:22
PROVIDERS: ATTEND Specialist
DX: Z12.4 Encounter for screening for malignant neoplasm of cervix (principal); N88.8 Other specified noninflammatory disorders of cervix uteri
CPT/HCPCS: 87624; G0123

== ENCOUNTER → 2022-12-23 | Outpatient (CLI) | payer MEDICARE, OTHER ==
[~2022-12-23] MED LIST changes: +LIDOCAINE 1% MDV 20ML VIAL As Ordered ONE
[2022-12-23 08:10] VITALS: BP 178/79; TEMP 97.5; O2SAT 97
== END ==
LOC: M IRPRO 07:58
PROVIDERS: ATTEND Internal Medicine Pulmonary Disease
DX: R91.8 Other nonspecific abnormal finding of lung field (principal)

== ENCOUNTER 2022-12-31 10:40 | Outpatient (CLI) | payer MEDICARE, OTHER ==
[~2022-12-31 10:40] MED LIST changes: -LIDOCAINE 1% MDV 20ML VIAL As Ordered ONE
[2022-12-31 10:44] VITALS: BP 142/80; TEMP 96.8; O2SAT 97
[2022-12-31] MEDS ORDERED: inFLIXimab INJECTION 400 MG in NS 210 ML IV ONE (11:00)
[2022-12-31] MEDS ORDERED: NS 1,000 ML IV SCH (11:00)
[2022-12-31 12:00] VITALS: BP 152/78; TEMP 98; O2SAT 96
[2022-12-31 13:00] VITALS: BP 164/81; TEMP 97.6; O2SAT 92
[2022-12-31 14:00] VITALS: BP 151/76; TEMP 96.9; O2SAT 91
== END 2022-12-31 14:00 | disposition home or self-care (01) ==
LOC: M INFU 10:40
PROVIDERS: ATTEND Internal Medicine Gastroenterology
DX: K50.90 Crohn's disease, unspecified, without complications (principal); Z88.0 Allergy status to penicillin; Z88.8 Allergy status to other drugs, medicaments and biological substances
CPT/HCPCS: 96413; 96415; J1745

== ENCOUNTER 2023-04-20 10:10 | Outpatient (CLI) | payer MEDICARE, OTHER ==
[~2023-04-20] VITALS: Ht 160 cm; Wt 82.7 kg
[2023-04-20 10:29] VITALS: BP 156/64; O2SAT 98
[2023-04-20] MEDS ORDERED: NS 1,000 ML IV SCH (10:30)
[2023-04-20] MEDS ORDERED: inFLIXimab INJECTION 400 MG in NS 210 ML IV ONE (11:00)
[2023-04-20 12:34] VITALS: BP 162/70; O2SAT 98
== END 2023-04-20 12:30 ==
LOC: M INFU 10:10
PROVIDERS: ATTEND Internal Medicine Gastroenterology
DX: K50.90 Crohn's disease, unspecified, without complications (principal); Z88.0 Allergy status to penicillin; Z88.8 Allergy status to other drugs, medicaments and biological substances
CPT/HCPCS: 96413; J1745

== ENCOUNTER 2023-06-17 09:56 | Outpatient (CLI) | payer MEDICARE, OTHER ==
[~2023-06-17] VITALS: Ht 160 cm; Wt 81.4 kg
[2023-06-17 10:15] VITALS: BP 168/84; O2SAT 98
[2023-06-17] MEDS ORDERED: NS 1,000 ML IV SCH (10:30)
[2023-06-17] MEDS ORDERED: inFLIXimab INJECTION 400 MG in NS 210 ML IV ONE (10:30)
[2023-06-17 11:35] VITALS: BP 160/72; O2SAT 97
== END 2023-06-17 12:25 ==
LOC: M INFU 09:56
PROVIDERS: ATTEND Internal Medicine Gastroenterology
DX: K50.90 Crohn's disease, unspecified, without complications (principal)
CPT/HCPCS: 96413; J1745

== ENCOUNTER → 2023-06-22 | Outpatient (REF) | payer MEDICARE, OTHER | LOC: M LAB REF 18:12 | PROVIDERS: ATTEND Surgery | DX: D03.61 Melanoma in situ of right upper limb, including shoulder (principal) ==

== ENCOUNTER → 2023-08-06 | Outpatient (CLI) | payer MEDICARE, OTHER | LOC: M RAD 08:47 | PROVIDERS: ATTEND Internal Medicine Pulmonary Disease | DX: R91.8 Other nonspecific abnormal finding of lung field (principal) ==

== ENCOUNTER 2023-08-12 10:20 | Outpatient (CLI) | payer MEDICARE, OTHER ==
[~2023-08-12] VITALS: Ht 160 cm; Wt 82.7 kg
[2023-08-12] MEDS ORDERED: NS 1,000 ML IV SCH (10:30)
[2023-08-12 10:37] VITALS: BP 118/62; TEMP 97.2; O2SAT 100
[2023-08-12 10:38] VITALS: BP 118/62; O2SAT 100
[2023-08-12] MEDS: inFLIXimab INJECTION 400 MG in NS 210 ML IV ONE (10:55)
[2023-08-12 12:10] VITALS: BP 150/70; O2SAT 100
== END 2023-08-12 12:10 ==
LOC: M INFU 10:20
PROVIDERS: ATTEND Internal Medicine Gastroenterology
DX: K50.90 Crohn's disease, unspecified, without complications (principal); Z88.0 Allergy status to penicillin; Z88.8 Allergy status to other drugs, medicaments and biological substances
CPT/HCPCS: 96413; J1745

== ENCOUNTER 2023-10-07 10:30 | Outpatient (CLI) | payer MEDICARE, OTHER ==
[~2023-10-07] VITALS: Ht 160 cm; Wt 84.0 kg
[~2023-10-07 10:30] MED LIST changes: +NS 1,000 ML IV SCH
[2023-10-07 10:35] VITALS: BP 138/60; O2SAT 97
[2023-10-07] MEDS: inFLIXimab INJECTION 400 MG in NS 210 ML IV ONE (11:27)
[2023-10-07 12:30] VITALS: BP 150/70; O2SAT 96
== END 2023-10-07 12:40 | disposition home or self-care (01) ==
LOC: M INFU 10:30
PROVIDERS: ATTEND Internal Medicine Gastroenterology
DX: K50.90 Crohn's disease, unspecified, without complications (principal); Z88.0 Allergy status to penicillin; Z88.8 Allergy status to other drugs, medicaments and biological substances
CPT/HCPCS: 96413; J1745

== ENCOUNTER → 2023-10-08 | Outpatient (CLI) | payer MEDICARE, OTHER ==
[~2023-10-08] MED LIST changes: -NS 1,000 ML IV SCH
== END ==
LOC: M PLALAB 10:35
PROVIDERS: ATTEND Physician Assistant Surgical
DX: K50.90 Crohn's disease, unspecified, without complications (principal)

== ENCOUNTER 2023-12-01 10:26 | Outpatient (CLI) | payer MEDICARE, OTHER ==
[~2023-12-01] VITALS: Ht 162.6 cm; Wt 83.2 kg
[2023-12-01 10:30] VITALS: BP 150/70; O2SAT 97
[2023-12-01] MEDS ORDERED: NS 1,000 ML IV SCH (10:30)
[2023-12-01] MEDS: inFLIXimab INJECTION 400 MG in NS 210 ML IV ONE (11:11)
[2023-12-01 12:19] VITALS: BP 150/80; O2SAT 98
== END 2023-12-01 12:20 ==
LOC: M INFU 10:26
PROVIDERS: ATTEND Internal Medicine Gastroenterology
DX: K50.90 Crohn's disease, unspecified, without complications (principal); Z88.0 Allergy status to penicillin; Z88.8 Allergy status to other drugs, medicaments and biological substances
CPT/HCPCS: 96413; J1745

== ENCOUNTER 2024-01-26 10:30 | Outpatient (CLI) | payer MEDICARE, OTHER ==
[~2024-01-26] VITALS: Ht 160 cm; Wt 84.5 kg
[2024-01-26 10:30] VITALS: BP 128/78; O2SAT 96
[~2024-01-26 10:30] MED LIST changes: +NS 1,000 ML IV SCH
[2024-01-26] MEDS: inFLIXimab INJECTION 400 MG in NS 210 ML IV ONE (11:21)
[2024-01-26 11:50] VITALS: BP 130/78; O2SAT 96
[2024-01-26 12:35] VITALS: BP 148/58; O2SAT 97
== END 2024-01-26 12:35 ==
LOC: M INFU 10:30
PROVIDERS: ATTEND Internal Medicine Gastroenterology
DX: K50.90 Crohn's disease, unspecified, without complications (principal); Z88.0 Allergy status to penicillin; Z88.8 Allergy status to other drugs, medicaments and biological substances
CPT/HCPCS: 96413; J1745

== ENCOUNTER → 2024-02-01 | Outpatient (CLI) | payer MEDICARE, OTHER ==
[~2024-02-01] MED LIST changes: -NS 1,000 ML IV SCH
== END ==
LOC: M WHC 13:31
PROVIDERS: ATTEND Specialist
DX: Z12.31 Encounter for screening mammogram for malignant neoplasm of breast (principal); R92.2 Inconclusive mammogram

== ENCOUNTER → 2024-02-07 | Outpatient (CLI) | payer MEDICARE, OTHER | LOC: M WHC 13:00 | PROVIDERS: ATTEND Specialist | DX: Z12.31 Encounter for screening mammogram for malignant neoplasm of breast (principal); R92.332 Mammographic heterogeneous density, left breast; N63.21 Unspecified lump in the left breast, upper outer quadrant | CPT/HCPCS: 76642; 77065; G0279 ==

== ENCOUNTER → 2024-02-08 | Outpatient (CLI) | payer MEDICARE, OTHER | LOC: M WHC 10:39 | PROVIDERS: ATTEND Specialist | DX: R92.8 Other abnormal and inconclusive findings on diagnostic imaging of breast (principal); Z53.8 Procedure and treatment not carried out for other reasons ==

== ENCOUNTER → 2024-02-17 | Outpatient (CLI) | payer MEDICARE, OTHER ==
[2024-02-17 07:52] VITALS: TEMP 98
[2024-02-17 08:30] VITALS: BP 132/70; O2SAT 97
== END ==
LOC: M WHCPRO 07:46
PROVIDERS: ATTEND Specialist
DX: R92.8 Other abnormal and inconclusive findings on diagnostic imaging of breast (principal); N63.21 Unspecified lump in the left breast, upper outer quadrant; C50.412 Malignant neoplasm of upper-outer quadrant of left female breast

== ENCOUNTER 2024-04-05 10:30 | Outpatient (CLI) | payer MEDICARE, OTHER ==
[~2024-04-05] VITALS: Ht 160 cm; Wt 86.4 kg
[2024-04-05 10:30] VITALS: BP 124/78; O2SAT 97
[~2024-04-05 10:30] MED LIST changes: +NS 1,000 ML IV SCH
[2024-04-05] MEDS: inFLIXimab INJECTION 400 MG in NS 210 ML IV ONE (11:21)
== END 2024-04-05 12:40 ==
LOC: M INFU 10:30
PROVIDERS: ATTEND Internal Medicine Gastroenterology
DX: K50.90 Crohn's disease, unspecified, without complications (principal); Z88.0 Allergy status to penicillin; Z88.8 Allergy status to other drugs, medicaments and biological substances
CPT/HCPCS: 96409; J1745

== ENCOUNTER 2024-06-06 07:14 | Outpatient (CLI) | payer MEDICARE, OTHER ==
[~2024-06-06] VITALS: Ht 162.6 cm; Wt 84.1 kg
[~2024-06-06 07:14] MED LIST changes: +ANAS1TAB2 PO; +ARIM1TAB5 PO; +BENE1POW5 PO; +CALCD50TA PO; +FLUTISP; +METR0.753 TOP; +MV-M1TAB13 PO; -NS 1,000 ML IV SCH; +SYST1SOL4 OU
[2024-06-06] MEDS ORDERED: NS (Normal Saline) 0.9% 1,000 ML IV SCH (07:30)
[2024-06-06 07:41] VITALS: BP 148/65; O2SAT 99
[2024-06-06] MEDS: inFLIXimab INJECTION 400 MG in NS 210 ML IV ONE (08:35)
[2024-06-06 08:50] VITALS: BP 148/74; O2SAT 97
[2024-06-06 09:35] VITALS: BP 164/78; O2SAT 98
== END 2024-06-06 09:45 ==
LOC: M INFU 07:14
PROVIDERS: ATTEND Internal Medicine Gastroenterology
DX: K50.90 Crohn's disease, unspecified, without complications (principal); Z88.0 Allergy status to penicillin; Z88.8 Allergy status to other drugs, medicaments and biological substances
CPT/HCPCS: 96413; J1745

== ENCOUNTER → 2024-06-08 | Outpatient (CLI) | payer MEDICARE, OTHER | LOC: M ONCR 09:52 | PROVIDERS: ATTEND General Practice | DX: C50.412 Malignant neoplasm of upper-outer quadrant of left female breast (principal); Z85.828 Personal history of other malignant neoplasm of skin; Z87.891 Personal history of nicotine dependence; Z79.51 Long term (current) use of inhaled steroids; Z79.620 Long term (current) use of immunosuppressive biologic; Z79.899 Other long term (current) drug therapy; Z88.0 Allergy status to penicillin; Z88.1 Allergy status to other antibiotic agents; Z88.8 Allergy status to other drugs, medicaments and biological substances; Z88.6 Allergy status to analgesic agent; Z80.1 Family history of malignant neoplasm of trachea, bronchus and lung; Z98.890 Other specified postprocedural states ==

== ENCOUNTER → 2024-06-09 | Outpatient (CLI) | payer MEDICARE, OTHER | LOC: M WHC 10:49 | PROVIDERS: ATTEND Nurse Practitioner Women's Health | DX: M85.851 Other specified disorders of bone density and structure, right thigh (principal); M85.852 Other specified disorders of bone density and structure, left thigh ==

== ENCOUNTER 2024-06-14 10:56 | Outpatient (RCR) | payer MEDICARE, OTHER | END 2024-06-30 | LOC: M ONCR 10:56 | PROVIDERS: ATTEND General Practice | DX: Z51.0 Encounter for antineoplastic radiation therapy (principal); C50.412 Malignant neoplasm of upper-outer quadrant of left female breast ==

== ENCOUNTER → 2024-06-23 | Outpatient (CLI) | payer MEDICARE, OTHER ==
[2024-06-23 11:52] LABS: BASO % 0.6 % (0.0-1.0); EOS # 0.1 10^3/uL (0.0-0.5); EOS % 1.4 % (0.0-3.0); HEMATOCRIT 39.3 % (36.0-47.0); LYMPH # 1.6 10^3/uL (1.5-5.0); LYMPH % 32.9 % (24.0-44.0); MEAN CORPUSCULAR HEMOGLOBIN 31.6 pg (27.0-33.0); MEAN CORPUSCULAR HGB CONC 33.1 g/dl (32.0-36.5); MEAN CORPUSCULAR VOLUME 95.6 fl (80.0-96.0); MONO # 0.4 10^3/uL (0.0-0.8); NEUTROPHILS # 2.7 10^3/uL (1.5-8.5); NEUTROPHILS % 55.9 % (36.0-66.0); PLATELET COUNT, AUTOMATED 196 10^3/uL (150-450); RED BLOOD COUNT 4.11 10^6/uL (4.00-5.40); WHITE BLOOD COUNT 4.9 10^3/uL (4.0-10.0)
[2024-06-23 12:30] LABS: ALBUMIN 3.7 G/DL (3.2-5.2); ALKALINE PHOSPHATASE 59 U/L (35-104); ALT/SGPT 24 U/L (7.0-40); AST/SGOT 18 U/L (<34); BILIRUBIN,TOTAL 0.5 MG/DL (0.3-1.2); BLOOD UREA NITROGEN 20 MG/DL (9-23); CALCIUM LEVEL 9.3 MG/DL (8.3-10.6); CARBON DIOXIDE LEVEL 29 MMOL/L (20-31); CHLORIDE LEVEL 107 MMOL/L (98-107); CREATININE FOR GFR 0.72 MG/DL (0.55-1.30); GLOMERULAR FILTRATION RATE > 60.0 (>32); GLUCOSE, FASTING 112 MG/DL (74-106); POTASSIUM SERUM 4.5 MMOL/L (3.5-5.1); SODIUM LEVEL 140 MMOL/L (136-145); TOTAL PROTEIN 6.9 G/DL (5.7-8.2)
== END ==
LOC: M PLALAB 08:15
PROVIDERS: ATTEND Internal Medicine Medical Oncology
DX: C50.919 Malignant neoplasm of unspecified site of unspecified female breast (principal)

== ENCOUNTER → 2024-07-28 | Outpatient (RCR) | payer MEDICARE, OTHER | LOC: M ONCR 07-04 09:51 | PROVIDERS: ATTEND General Practice | DX: Z51.0 Encounter for antineoplastic radiation therapy (principal); C50.412 Malignant neoplasm of upper-outer quadrant of left female breast ==

== ENCOUNTER 2024-07-31 09:53 | Outpatient (RCR) | payer MEDICARE, OTHER | END 2024-08-28 | LOC: M ONCR 09:53 | PROVIDERS: ATTEND General Practice | DX: Z51.0 Encounter for antineoplastic radiation therapy (principal); C50.412 Malignant neoplasm of upper-outer quadrant of left female breast ==

== ENCOUNTER 2024-08-01 09:00 | Outpatient (CLI) | payer MEDICARE, OTHER ==
[~2024-08-01] VITALS: Ht 160 cm; Wt 84.0 kg
[2024-08-01 09:00] VITALS: BP 130/70; O2SAT 97
[~2024-08-01 09:00] MED LIST changes: +NS (Normal Saline) 0.9% 1,000 ML IV SCH
[2024-08-01] MEDS: inFLIXimab INJECTION 400 MG in NS 210 ML IV ONE (09:33)
[2024-08-01 09:45] VITALS: BP 116/68; O2SAT 98
[2024-08-01 10:38] VITALS: BP 142/60; O2SAT 99
== END 2024-08-01 10:40 ==
LOC: M INFU 09:00
PROVIDERS: ATTEND Internal Medicine Gastroenterology
DX: K50.90 Crohn's disease, unspecified, without complications (principal); Z88.0 Allergy status to penicillin; Z88.8 Allergy status to other drugs, medicaments and biological substances
CPT/HCPCS: 96413; J1745

== ENCOUNTER → 2024-08-02 | Outpatient (CLI) | payer MEDICARE, OTHER ==
[~2024-08-02] MED LIST changes: -NS (Normal Saline) 0.9% 1,000 ML IV SCH
[2024-08-02 15:34] LABS: ALBUMIN 3.8 G/DL (3.2-5.2); ALKALINE PHOSPHATASE 58 U/L (35-104); ALT/SGPT 27 U/L (7.0-40); AST/SGOT 21 U/L (<34); BILIRUBIN,TOTAL 0.5 MG/DL (0.3-1.2); BLOOD UREA NITROGEN 22 MG/DL (9-23); CALCIUM LEVEL 9.8 MG/DL (8.3-10.6); CARBON DIOXIDE LEVEL 30 MMOL/L (20-31); CHLORIDE LEVEL 102 MMOL/L (98-107); CHOLESTEROL LEVEL 165 MG/DL (<200); CHOLESTEROL RISK RATIO 2.73 (<5); CREATININE FOR GFR 0.74 MG/DL (0.55-1.30); GLOMERULAR FILTRATION RATE > 60.0 (>32); GLUCOSE, FASTING 93 MG/DL (74-106); HDL CHOLESTEROL 60.3 MG/DL (>40); LDL CHOLESTEROL 90.1 MG/DL (<100); NON-HDL-C 104.7 MG/DL; POTASSIUM SERUM 4.1 MMOL/L (3.5-5.1); SODIUM LEVEL 140 MMOL/L (136-145); TRIGLYCERIDES LEVEL 73 MG/DL (<150)
== END ==
LOC: M PLALAB 13:29
PROVIDERS: ATTEND Internal Medicine
DX: E78.5 Hyperlipidemia, unspecified (principal)

== ENCOUNTER → 2024-09-07 | Outpatient (CLI) | payer MEDICARE, OTHER ==
[2024-09-07 15:50] LABS: BASO % 0.3 % (0.0-1.0); EOS % 0.5 % (0.0-3.0); HEMATOCRIT 36.9 % (36.0-47.0); HEMOGLOBIN 12.4 g/dl (12.0-15.5); LYMPH # 1.5 10^3/uL (1.5-5.0); LYMPH % 25.6 % (24.0-44.0); MEAN CORPUSCULAR HEMOGLOBIN 32.2 pg (27.0-33.0); MEAN CORPUSCULAR HGB CONC 33.6 g/dl (32.0-36.5); MEAN CORPUSCULAR VOLUME 95.8 fl (80.0-96.0); MONO # 0.5 10^3/uL (0.0-0.8); MONO % 8.5 % (2.0-8.0); NEUTROPHILS # 3.9 10^3/uL (1.5-8.5); NEUTROPHILS % 64.9 % (36.0-66.0); PLATELET COUNT, AUTOMATED 173 10^3/uL (150-450); RED BLOOD COUNT 3.85 10^6/uL (4.00-5.40)
[2024-09-07 16:17] LABS: ALBUMIN 3.7 G/DL (3.2-5.2); BILIRUBIN,TOTAL 0.4 MG/DL (0.3-1.2); CALCIUM LEVEL 9.6 MG/DL (8.3-10.6); CREATININE FOR GFR 0.76 MG/DL (0.55-1.30); GLOMERULAR FILTRATION RATE 78.7 (>32); PERCENT SATURATION 22.2 % (13.2-45.0); POTASSIUM SERUM 4.4 MMOL/L (3.5-5.1); TOTAL PROTEIN 6.8 G/DL (5.7-8.2)
[2024-09-07 16:18] LABS: FREE T4 1.36 NG/DL (0.89-1.76)
[2024-09-07 16:20] LABS: FREE T3 3.1 PG/ML (2.3-4.2)
== END ==
LOC: M PLALAB 13:05
PROVIDERS: ATTEND Internal Medicine Medical Oncology
DX: C50.912 Malignant neoplasm of unspecified site of left female breast (principal); Z79.899 Other long term (current) drug therapy

== ENCOUNTER 2024-09-26 08:19 | Outpatient (CLI) | payer MEDICARE, OTHER ==
[~2024-09-26] VITALS: Ht 160 cm; Wt 84.0 kg
[~2024-09-26 08:19] MED LIST changes: +NS (Normal Saline) 0.9% 1,000 ML IV SCH
[2024-09-26 08:38] VITALS: BP 152/70; TEMP 97.8; O2SAT 98
[2024-09-26] MEDS: inFLIXimab INJECTION 400 MG in NS 210 ML IV ONE (09:11)
[2024-09-26 09:22] VITALS: BP 160/70; TEMP 97.2; O2SAT 97
[2024-09-26 10:15] VITALS: BP 158/72; TEMP 97.6; O2SAT 99
== END 2024-09-26 10:20 ==
LOC: M INFU 08:19
PROVIDERS: ATTEND Internal Medicine Gastroenterology
DX: K50.90 Crohn's disease, unspecified, without complications (principal); Z88.0 Allergy status to penicillin; Z88.8 Allergy status to other drugs, medicaments and biological substances
CPT/HCPCS: 96413; J1745

== ENCOUNTER → 2024-10-11 | Outpatient (CLI) | payer MEDICARE, OTHER ==
[~2024-10-11] MED LIST changes: -NS (Normal Saline) 0.9% 1,000 ML IV SCH
[2024-10-11 15:23] LABS: HEMATOCRIT 36.3 % (36.0-47.0); HEMOGLOBIN 12.1 g/dl (12.0-15.5); MEAN CORPUSCULAR HEMOGLOBIN 32.3 pg (27.0-33.0); MEAN CORPUSCULAR HGB CONC 33.3 g/dl (32.0-36.5); MEAN CORPUSCULAR VOLUME 96.8 fl (80.0-96.0); PLATELET COUNT, AUTOMATED 188 10^3/uL (150-450); RED BLOOD COUNT 3.75 10^6/uL (4.00-5.40); WHITE BLOOD COUNT 6.3 10^3/uL (4.0-10.0)
[2024-10-11 15:35] LABS: ALBUMIN 3.9 G/DL (3.2-5.2); BILIRUBIN,DIRECT 0.1 MG/DL (<0.4); BILIRUBIN,TOTAL 0.5 MG/DL (0.3-1.2); CALCIUM LEVEL 9.9 MG/DL (8.3-10.6); CREATININE FOR GFR 0.74 MG/DL (0.55-1.30); FERRITIN 97.6 NG/ML (7.3-270.7); GLOMERULAR FILTRATION RATE 81.2 (>32); PERCENT SATURATION 28.1 % (13.2-45.0); POTASSIUM SERUM 4.2 MMOL/L (3.5-5.1); TOTAL 25(OH) VITAMIN D 71.2 NG/ML (20.0-100.0); TOTAL PROTEIN 6.9 G/DL (5.7-8.2)
== END ==
LOC: M PLALAB 13:14
PROVIDERS: ATTEND Physician Assistant Surgical
DX: K50.90 Crohn's disease, unspecified, without complications (principal); Z79.899 Other long term (current) drug therapy

== ENCOUNTER → 2024-10-12 | Outpatient (CLI) | payer MEDICARE, OTHER ==
[2024-10-12 14:04] LABS: HEMATOCRIT 37.4 % (36.0-47.0); HEMOGLOBIN 12.1 g/dl (12.0-15.5); MEAN CORPUSCULAR HEMOGLOBIN 31.3 pg (27.0-33.0); MEAN CORPUSCULAR HGB CONC 32.4 g/dl (32.0-36.5); MEAN CORPUSCULAR VOLUME 96.6 fl (80.0-96.0); PLATELET COUNT, AUTOMATED 163 10^3/uL (150-450); RED BLOOD COUNT 3.87 10^6/uL (4.00-5.40); WHITE BLOOD COUNT 6.9 10^3/uL (4.0-10.0)
[2024-10-12 14:07] LABS: FERRITIN 91.3 NG/ML (7.3-270.7)
[2024-10-12 14:08] LABS: TOTAL 25(OH) VITAMIN D 64.9 NG/ML (20.0-100.0)
[2024-10-12 14:13] LABS: ALBUMIN 3.8 G/DL (3.2-5.2); BILIRUBIN,DIRECT 0.1 MG/DL (<0.4); BILIRUBIN,TOTAL 0.4 MG/DL (0.3-1.2); CALCIUM LEVEL 9.4 MG/DL (8.3-10.6); CREATININE FOR GFR 0.78 MG/DL (0.55-1.30); GLOMERULAR FILTRATION RATE 76.3 (>32); PERCENT SATURATION 24.8 % (13.2-45.0); POTASSIUM SERUM 4.6 MMOL/L (3.5-5.1); TOTAL PROTEIN 6.9 G/DL (5.7-8.2)
[2024-10-16 14:31] LABS: QuantiFERON-TB Gold Plus NEGATIVE (NEGATIVE)
== END ==
LOC: M PLALAB 11:06
PROVIDERS: ATTEND Physician Assistant Surgical
DX: K50.90 Crohn's disease, unspecified, without complications (principal); Z79.899 Other long term (current) drug therapy

== ENCOUNTER → 2024-12-12 | Outpatient (CLI) | payer MEDICARE, OTHER ==
[2024-12-12 18:30] LABS: PLATELET COUNT, AUTOMATED 181 10^3/uL (150-450)
[2024-12-12 18:31] LABS: ALT/SGPT 21.0 U/L (7.0-40); AST/SGOT 21.0 U/L (<34); CALCIUM LEVEL 9.3 MG/DL (8.3-10.6); CARBON DIOXIDE LEVEL 30.0 MMOL/L (20-31); CHLORIDE LEVEL 99.0 MMOL/L (98-107); CREATININE FOR GFR 0.87 MG/DL (0.55-1.30); GLOMERULAR FILTRATION RATE 66.9 (>32); POTASSIUM SERUM 4.0 MMOL/L (3.5-5.1); SODIUM LEVEL 141.0 MMOL/L (136-145)
== END ==
LOC: M PLALAB 14:06
PROVIDERS: ATTEND Internal Medicine
DX: R42 Dizziness and giddiness (principal)

== ENCOUNTER 2025-01-17 08:12 | Outpatient (CLI) | payer MEDICARE, OTHER ==
[~2025-01-17] VITALS: Ht 160 cm; Wt 83.6 kg
[~2025-01-17 08:12] MED LIST changes: -IBUP-1022 PO; +IBUP600T42 PO
[2025-01-17] MEDS ORDERED: NS (Normal Saline) 0.9% 1,000 ML IV SCH (08:30)
[2025-01-17 08:41] VITALS: BP 128/59; O2SAT 95
[2025-01-17] MEDS: inFLIXimab INJECTION 400 MG in NS 210 ML IV ONE (09:08)
[2025-01-17 10:20] VITALS: BP 160/70; O2SAT 98
== END 2025-01-17 10:20 ==
LOC: M INFU 08:12
PROVIDERS: ATTEND Internal Medicine Gastroenterology
DX: K50.90 Crohn's disease, unspecified, without complications (principal); Z88.0 Allergy status to penicillin; Z88.8 Allergy status to other drugs, medicaments and biological substances
CPT/HCPCS: 96413; J1745

== ENCOUNTER → 2025-01-31 | Outpatient (CLI) | payer MEDICARE, OTHER | LOC: M ONCR 09:57 | PROVIDERS: ATTEND General Practice | DX: C50.412 Malignant neoplasm of upper-outer quadrant of left female breast (principal); Z17.0 Estrogen receptor positive status [ER+]; Z17.21 Progesterone receptor positive status; Z17.32 Human epidermal growth factor receptor 2 negative status; Z98.890 Other specified postprocedural states; Z79.51 Long term (current) use of inhaled steroids; Z79.811 Long term (current) use of aromatase inhibitors; Z79.899 Other long term (current) drug therapy; Z87.891 Personal history of nicotine dependence; Z88.0 Allergy status to penicillin; Z88.1 Allergy status to other antibiotic agents; Z88.8 Allergy status to other drugs, medicaments and biological substances; Z88.6 Allergy status to analgesic agent; Z92.3 Personal history of irradiation ==

== ENCOUNTER → 2025-02-05 | Outpatient (CLI) | payer MEDICARE, OTHER ==
[2025-02-05 11:54] LABS: PLATELET COUNT, AUTOMATED 188 10^3/uL (150-450)
[2025-02-05 12:05] LABS: ESTIMATED AVERAGE GLUCOSE 117.0 MG/DL (60-110)
[2025-02-05 12:27] LABS: ALT/SGPT 26.0 U/L (7.0-40); AST/SGOT 25.0 U/L (<34); CALCIUM LEVEL 9.7 MG/DL (8.3-10.6); CARBON DIOXIDE LEVEL 31.0 MMOL/L (20-31); CHLORIDE LEVEL 103.0 MMOL/L (98-107); CHOLESTEROL LEVEL 167.0 MG/DL (<200); CHOLESTEROL RISK RATIO 2.58 (<5); CREATININE FOR GFR 0.77 MG/DL (0.55-1.30); GLOMERULAR FILTRATION RATE 77.0 (>32); LDL CHOLESTEROL 87.2 MG/DL (<100); NON-HDL-C 102.4 MG/DL; POTASSIUM SERUM 4.5 MMOL/L (3.5-5.1); SODIUM LEVEL 142.0 MMOL/L (136-145); TRIGLYCERIDES LEVEL 76.0 MG/DL (<150)
== END ==
LOC: M PLALAB 06:58
PROVIDERS: ATTEND Internal Medicine
DX: I10 Essential (primary) hypertension (principal); E78.5 Hyperlipidemia, unspecified; R73.01 Impaired fasting glucose

== ENCOUNTER 2025-03-14 07:59 | Outpatient (CLI) | payer MEDICARE, OTHER ==
[~2025-03-14] VITALS: Ht 160 cm; Wt 82.6 kg
[2025-03-14 08:25] VITALS: BP 162/80; O2SAT 98
[2025-03-14] MEDS ORDERED: NS (Normal Saline) 0.9% 1,000 ML IV SCH (08:30)
[2025-03-14] MEDS: inFLIXimab INJECTION 400 MG in NS 210 ML IV ONE (09:32)
[2025-03-14 09:47] VITALS: BP 125/78; TEMP 97.8; O2SAT 97
[2025-03-14 10:40] VITALS: BP 180/78; O2SAT 97
== END 2025-03-14 10:45 | disposition home or self-care (01) ==
LOC: M INFU 07:59
PROVIDERS: ATTEND Internal Medicine Gastroenterology
DX: K50.90 Crohn's disease, unspecified, without complications (principal); Z88.0 Allergy status to penicillin; Z88.8 Allergy status to other drugs, medicaments and biological substances
CPT/HCPCS: 96413; J1745

== ENCOUNTER 2025-05-09 08:03 | Outpatient (CLI) | payer MEDICARE, OTHER ==
[~2025-05-09] VITALS: Ht 160 cm; Wt 81.9 kg
[~2025-05-09 08:03] MED LIST changes: -FISH10005 PO; +FISH1CAP38 PO; +HYDR12.510; +TRIA60LO3 TOP; -[UNRECOGNIZED DRUG - CODE] TOP
[2025-05-09] MEDS ORDERED: NS (Normal Saline) 0.9% 1,000 ML IV SCH (08:30)
[2025-05-09 08:32] VITALS: BP 142/64; O2SAT 98
[2025-05-09] MEDS: inFLIXimab INJECTION 400 MG in NS 210 ML IV ONE (09:07)
[2025-05-09 09:22] VITALS: BP 132/64; TEMP 97.5; O2SAT 96
[2025-05-09 10:15] VITALS: BP 172/76; O2SAT 98
== END 2025-05-09 10:15 | disposition home or self-care (01) ==
LOC: M INFU 08:03
PROVIDERS: ATTEND Internal Medicine Gastroenterology
DX: K50.90 Crohn's disease, unspecified, without complications (principal); Z88.0 Allergy status to penicillin; Z88.8 Allergy status to other drugs, medicaments and biological substances
CPT/HCPCS: 96413; J1745

== ENCOUNTER 2025-05-20 08:32 | Emergency (ER) | payer MEDICARE, OTHER ==
[~2025-05-20] VITALS: Ht 160 cm; Wt 83.4 kg
[2025-05-20] MEDS ORDERED: METR-265 (08:47)
[2025-05-20 09:26] LABS: BASO # 0.0 10^3/uL (0.0-0.2); BASO % 0.2 % (0.0-1.0); EOS # 0.0 10^3/uL (0.0-0.5); EOS % 1.0 % (0.0-3.0); LYMPH # 0.7 10^3/uL (1.5-5.0); LYMPH % 17.7 % (24.0-44.0); MONO # 0.6 10^3/uL (0.0-0.8); MONO % 15.0 % (2.0-8.0); NEUTROPHILS # 2.8 10^3/uL (1.5-8.5); NEUTROPHILS % 65.9 % (36.0-66.0); PLATELET COUNT, AUTOMATED 180 10^3/uL (150-450)
[2025-05-20] MEDS ORDERED: ISOVUE-370 76% 100 ML VIAL As Ordered ONE (09:39)
[2025-05-20 09:47] LABS: ALT/SGPT 42.0 U/L (7.0-40); AST/SGOT 36.0 U/L (<34); CALCIUM LEVEL 9.0 MG/DL (8.3-10.6); CARBON DIOXIDE LEVEL 27.0 MMOL/L (20-31); CHLORIDE LEVEL 100.0 MMOL/L (98-107); CREATININE FOR GFR 0.68 MG/DL (0.55-1.30); GLOMERULAR FILTRATION RATE 86.9 (>32); POTASSIUM SERUM 3.9 MMOL/L (3.5-5.1); SODIUM LEVEL 136.0 MMOL/L (136-145)
[2025-05-20 09:57] LABS: INR 0.99
[2025-05-20 11:44] VITALS: BP 112/56; TEMP 97.5; O2SAT 99
== END 2025-05-20 11:49 | disposition home or self-care (01) ==
LOC: M ED 08:32
DX: K92.2 Gastrointestinal hemorrhage, unspecified (principal); I10 Essential (primary) hypertension; R00.0 Tachycardia, unspecified; I45.81 Long QT syndrome; Z88.0 Allergy status to penicillin; Z88.8 Allergy status to other drugs, medicaments and biological substances; Z79.899 Other long term (current) drug therapy; Z79.810 Long term (current) use of selective estrogen receptor modulators (SERMs)
CPT/HCPCS: 36415; 71045; 74174; 80047; 80053; 82248; 83690; 85025; 85610; 85730; 86850; 86900; 86901; 93005; 93041; 99284; Q9967

== ENCOUNTER → 2025-05-22 | Outpatient (CLI) | payer MEDICARE, OTHER ==
[~2025-05-22] MED LIST changes: +METR-265
[2025-05-22 13:37] LABS: BASO # 0.0 10^3/uL (0.0-0.2); BASO % 0.4 % (0.0-1.0); EOS # 0.0 10^3/uL (0.0-0.5); EOS % 0.6 % (0.0-3.0); LYMPH # 1.1 10^3/uL (1.5-5.0); LYMPH % 22.9 % (24.0-44.0); MONO # 0.6 10^3/uL (0.0-0.8); MONO % 12.3 % (2.0-8.0); NEUTROPHILS # 3.1 10^3/uL (1.5-8.5); NEUTROPHILS % 63.6 % (36.0-66.0); PLATELET COUNT, AUTOMATED 199 10^3/uL (150-450)
[2025-05-22 13:43] LABS: ALT/SGPT 40.0 U/L (7.0-40); AST/SGOT 39.0 U/L (<34); CALCIUM LEVEL 8.7 MG/DL (8.3-10.6); CARBON DIOXIDE LEVEL 29.0 MMOL/L (20-31); CHLORIDE LEVEL 100.0 MMOL/L (98-107); CREATININE FOR GFR 0.73 MG/DL (0.55-1.30); GLOMERULAR FILTRATION RATE 82.1 (>32); POTASSIUM SERUM 4.3 MMOL/L (3.5-5.1); SODIUM LEVEL 138.0 MMOL/L (136-145)
== END ==
LOC: M PLALAB 10:42
PROVIDERS: ATTEND Internal Medicine
DX: K62.5 Hemorrhage of anus and rectum (principal); K50.90 Crohn's disease, unspecified, without complications